=== PATIENT | female | born 1985 | race Caucasian/White ===

== ENCOUNTER 2016-07-05 21:35 | Emergency (ER) | payer SELFPAY ==
[~2016-07-05 21:35] MED LIST: IBUP600T26 PO; OMEP40CA2 PO; ULTR50TA PO
[2016-07-05] MEDS ORDERED: CLINDAMYCIN 150 MG CAP As Ordered ONE (22:45)
[2016-07-05] MEDS ORDERED: OXYCODONE/APAP 5MG/325MG(BULK) 1 TAB TAB As Ordered ONE (22:46)
--- NOTE | 2016-07-05 22:55 | EDDOCDS ---
Physician Documentation [facility] Name: Liseth Metz Age: 30 yrs Sex: Female : 1985 Arrival Date: 07/05/2016 Time: 21:35 Bed TR7 Private MD: NO PRIMARY PHYSICIAN, . Disposition: 07/05/16 22:44 Discharged to Home/Self Care. Impression: Dental caries - Tooth Pain/Abscess/Fracture. - Condition is Stable. - Discharge Instructions: Dental Abscess, Dental Fracture, Dental Pain, [id number]. - Prescriptions for Clindamycin HCl 300 mg Oral Capsule - take 1 capsule by ORAL route every 6 hours; 40 capsule. Percocet 5- 325 mg Oral Tablet - take 1 tablet by ORAL route every 6 hours As needed MDD: 4 tabs; 20 tablet. Ibuprofen 800 mg Oral Tablet - take 1 tablet by ORAL route every 8 hours As needed take with food; 30 tablet. - Medication Reconciliation, Local Pharmacy Hours form. - Follow up: Dentist Your; When: 1 - 2 days; Reason: Further diagnostic work-up, Recheck today's complaints, Continuance of care. Follow up: Emergency Department; Reason: Worsening of conditions. - Problem is new. - Symptoms have improved. Historical: - Allergies: no known allergies; - Home Meds: 1. ibuprofen 600 mg Oral tab 1 tab 4 times per day (Last dose: 07/05/2016 14:00) 2. Tylenol 325 mg Oral tab 2 tabs every 6 hours (Last dose: 07/05/2016 19:30) 3. omeprazole 20 mg Oral cpDR 1 cap once daily (Last dose: 07/05/2016 08:00) - PMHx: acid reflux; - PSHx: none; - Social history: Smoking status: Patient states was never smoker of tobacco. Patient/guardian denies using alcohol, street drugs, No barriers to communication noted, The patient speaks fluent Amharic, Speaks appropriately for age. - Family history: Not pertinent. - : The pt / caregiver states he / she is not on anticoagulants. Home medication list is obtained from the patient. - Exposure Risk Screening:: None identified. 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 7 in. (170.18 cm) (R); Pain 6/10; 21:38 Body Mass Index 39.16 (113.40 kg, 170.18 cm) gr2 MDM: 22:43 Clindamycin 300 mg PO once ordered. ef1 22:43 oxyCODONE-acetaminophen 4 pack 5 mg-325 mg 1 packets PO once; Dispense with pt, take as ef1 per instruction on package ordered. 22:54 [facility] Payment Agreement was scanned into [employer] and attached to record. joy 22:54 Financial registration complete. joy Administered Medications: 22:53 Drug: oxyCODONE-acetaminophen 4 pack 1 packets [oxycodone-acetaminophen 5 mg-325 mg ck1 tablet (1 tabs)] {Co-Signature: asha (Saul Delcid RN).} Route: PO; 22:54 Drug: Clindamycin 300 mg [clindamycin 150 mg capsule (2 caps)] Route: PO; ck1 Signatures: Gabriela Schneider RN RN ck1 Nicolasa Quintana, PA-C PA-C ef1 Any Toro RN RN ttb Beck, Gabriela gjb Joshua Becker RN jmb The chart was reviewed and I authenticate all verbal orders and agree with the evaluation and treatment provided.Attachments: 22:54 [facility] Payment Agreement joy MTDD
--- NOTE | 2016-07-05 22:55 | EDDOCDS ---
Nurse's Notes [facility] Name: Liseth Metz Age: 30 yrs Sex: Female : 1985 Arrival Date: 07/05/2016 Time: 21:35 Bed TR7 Private MD: NO PRIMARY PHYSICIAN, . Diagnosis: Dental caries-Tooth Pain/Abscess/Fracture Presentation: 07/05 21:45 Presenting complaint: Patient states: toothache x2 days. Left upper molar. Mild facial ttb swelling noted. Adult Sepsis Screening: The patient does not have new or worsening altered mentation. Patient's respiratory rate is less than 22. Systolic blood pressure is greater than 100. Patient has a qSOFA score of 0- Negative Sepsis Screen. Suicide/Homicide risk assessment- the patient denies having any suicidal and/or homicidal ideations and does not present with any other emotional, behavioral or mental health complaints. 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 Transition of care: patient was not received from another setting of care. 21:45 Acuity: RACHELLE Level 5 ttb 21:45 Method Of Arrival: Walkin/Carried/Asstd ttb Triage Assessment: 21:47 General: Appears in no apparent distress, well nourished, well groomed, Behavior is ttb appropriate for age, cooperative, pleasant, quiet. Pain: Location: left molar 7/10. HIV screening NA for this visit Offered previously. Neurological: Level of Consciousness is awake, alert. EENT: Reports pain since 2 days ago. EENT: Denies difficulty swallowing. Cardiovascular: Chest pain is denied. Respiratory: No deficits noted. Airway is patent Denies cough, shortness of breath. GI: Denies nausea, vomiting. Derm: Skin is normal. 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 ibuprofen 600 mg Oral tab 1 tab 4 times per day (Last dose: 07/05/2016 14:00) 2. Tylenol 325 mg Oral tab 2 tabs every 6 hours (Last dose: 07/05/2016 19:30) 3. omeprazole 20 mg Oral cpDR 1 cap once daily (Last dose: 07/05/2016 08:00) - PMHx: acid reflux; - PSHx: none; - Social history: Smoking status: Patient states was never smoker of tobacco. Patient/guardian denies using alcohol, street drugs, No barriers to communication noted, The patient speaks fluent Tongan, Speaks appropriately for age. - Family history: Not pertinent. - : The pt / caregiver states he / she is not on anticoagulants. Home medication list is obtained from the patient. - Exposure Risk Screening:: None identified. Screenin:54 Screening information is obtained from the patient. Fall risk: No risks identified. ck1 Assistance ADL's: requires no assistance with activities of daily living. Abuse/DV Screen: The patient / caregiver reports he/she is: not in a situation that causes fear, pain or injury. Nutritional screening: No deficits noted. Advance Directives: Currently, there is no health care proxy. home support is adequate. Assessment: 22:55 General: Appears in no apparent distress, comfortable, Behavior is appropriate for age, ck1 cooperative. Pain: Location: mouth Pain currently is 8 out of 10 on a pain scale. Neurological: No deficits noted. EENT: Oral mucosa is moist. Poor dentition noted. Derm: Skin is intact, is healthy with good turgor, Skin is pink, warm & dry. Vital Signs: 21:38 BP 154 / 93; Pulse 91; Resp 18 S; Temp 97.7(O); Pulse Ox 98% on R/A; Weight 113.4 kg gr2 (R); Height 5 ft. 7 in. (170.18 cm) (R); Pain 6/10; 21:38 Body Mass Index 39.16 (113.40 kg, 170.18 cm) gr2 Vitals: 21:38 Log In Time: July 05, 2016 at 21:38. gr2 ED Course: 21:37 Patient visited by Mine Pressley. gr2 21:37 Patient moved to Waiting gr2 21:38 NO PRIMARY PHYSICIAN, . is Private Physician. gr2 21:39 Patient visited by Mine Pressley. gr2 21:39 Patient moved to Pre RCE gr2 21:46 Triage Initiated ttb 21:48 Patient visited by Any Troo RN. ttb 22:28 Patient moved to Triage 3 jmb 22:29 Nicolasa Quintana PA-C is PHCP. ef1 22:29 Ismael Juárez DO is Attending Physician. ef1 22:32 Patient visited by Nicolasa Quintana PA-C. ef1 22:44 Your, Dentist is Referral Physician. ef1 22:53 Patient moved to [address] 22:54 [facility] Payment Agreement was scanned into [employer] and attached to record. [facility] 22:54 The patient / caregiver is instructed regarding the plan of care and ED course. ck1 22:54 No IV's were initiated during this patient's visit. No procedures done that require ck1 assistance. Administered Medications: 22:53 Drug: oxyCODONE-acetaminophen 4 pack 1 packets [oxycodone-acetaminophen 5 mg-325 mg ck1 tablet (1 tabs)] {Co-Signature: asha (Saul Delcid RN).} Route: PO; 22:54 Drug: Clindamycin 300 mg [clindamycin 150 mg capsule (2 caps)] Route: PO; ck1 Order Results: There are currently no results for this order. Outcome: 22:44 Discharge ordered by Provider. ef1 22:54 Discharge Assessment: Patient awake, alert and oriented x 3. No cognitive and/or ck1 functional deficits noted. Patient verbalized understanding of disposition instructions. patient administered narcotics - yes. Pt provided with safe discharge. The following High Risk Discharge criteria are identified: None. Discharged to home ambulatory. Condition: stable. Discharge instructions given to patient, Instructed on discharge instructions, follow up and referral plans. medication usage, Demonstrated understanding of instructions, medications, Pt was receptive of discharge instructions/ teaching. Prescriptions given X 3. No special radiology studies were completed. Property :Personal belongings accompany Pt. 22:55 Patient left the ED. ck1 Signatures: Gabriela Schneider,RN RN ck1 Nicolasa Quintana PA-C PA-C ef1 Any Toro RN RN deborab Mine Pressley 2 Saul Delcid RN RN jmb Beck, Gabriela gjb Joshua Becker RN jmb MTDD
--- NOTE | 2016-07-07 23:56 | EDDOCDS ---
Nurse's Notes [facility] Name: Liseth Metz Age: 30 yrs Sex: Female : 1985 Arrival Date: 07/05/2016 Time: 21:35 Bed TR7 Private MD: NO PRIMARY PHYSICIAN, . Diagnosis: Dental caries-Tooth Pain/Abscess/Fracture Presentation: 07/05 21:45 Presenting complaint: Patient states: toothache x2 days. Left upper molar. Mild facial ttb swelling noted. Adult Sepsis Screening: The patient does not have new or worsening altered mentation. Patient's respiratory rate is less than 22. Systolic blood pressure is greater than 100. Patient has a qSOFA score of 0- Negative Sepsis Screen. Suicide/Homicide risk assessment- the patient denies having any suicidal and/or homicidal ideations and does not present with any other emotional, behavioral or mental health complaints. 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 Transition of care: patient was not received from another setting of care. 21:45 Acuity: RACHELLE Level 5 ttb 21:45 Method Of Arrival: Walkin/Carried/Asstd ttb Triage Assessment: 21:47 General: Appears in no apparent distress, well nourished, well groomed, Behavior is ttb appropriate for age, cooperative, pleasant, quiet. Pain: Location: left molar 7/10. HIV screening NA for this visit Offered previously. Neurological: Level of Consciousness is awake, alert. EENT: Reports pain since 2 days ago. EENT: Denies difficulty swallowing. Cardiovascular: Chest pain is denied. Respiratory: No deficits noted. Airway is patent Denies cough, shortness of breath. GI: Denies nausea, vomiting. Derm: Skin is normal. 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 ibuprofen 600 mg Oral tab 1 tab 4 times per day (Last dose: 07/05/2016 14:00) 2. Tylenol 325 mg Oral tab 2 tabs every 6 hours (Last dose: 07/05/2016 19:30) 3. omeprazole 20 mg Oral cpDR 1 cap once daily (Last dose: 07/05/2016 08:00) - PMHx: acid reflux; - PSHx: none; - Social history: Smoking status: Patient states was never smoker of tobacco. Patient/guardian denies using alcohol, street drugs, No barriers to communication noted, The patient speaks fluent Turkish, Speaks appropriately for age. - Family history: Not pertinent. - : The pt / caregiver states he / she is not on anticoagulants. Home medication list is obtained from the patient. - Exposure Risk Screening:: None identified. Screenin:54 Screening information is obtained from the patient. Fall risk: No risks identified. ck1 Assistance ADL's: requires no assistance with activities of daily living. Abuse/DV Screen: The patient / caregiver reports he/she is: not in a situation that causes fear, pain or injury. Nutritional screening: No deficits noted. Advance Directives: Currently, there is no health care proxy. home support is adequate. Assessment: 22:55 General: Appears in no apparent distress, comfortable, Behavior is appropriate for age, ck1 cooperative. Pain: Location: mouth Pain currently is 8 out of 10 on a pain scale. Neurological: No deficits noted. EENT: Oral mucosa is moist. Poor dentition noted. Derm: Skin is intact, is healthy with good turgor, Skin is pink, warm & dry. Vital Signs: 21:38 BP 154 / 93; Pulse 91; Resp 18 S; Temp 97.7(O); Pulse Ox 98% on R/A; Weight 113.4 kg gr2 (R); Height 5 ft. 7 in. (170.18 cm) (R); Pain 6/10; 21:38 Body Mass Index 39.16 (113.40 kg, 170.18 cm) gr2 Vitals: 21:38 Log In Time: July 05, 2016 at 21:38. gr2 ED Course: 21:37 Patient visited by Mine Pressley. gr2 21:37 Patient moved to Waiting gr2 21:38 NO PRIMARY PHYSICIAN, . is Private Physician. gr2 21:39 Patient visited by Mine Pressley. gr2 21:39 Patient moved to Pre RCE gr2 21:46 Triage Initiated ttb 21:48 Patient visited by Any Toro RN. ttb 22:28 Patient moved to Triage 3 jmb 22:29 Nicolasa Quintana PA-C is PHCP. ef1 22:29 Ismael Juárez DO is Attending Physician. ef1 22:32 Patient visited by Nicolasa Quintana PA-C. ef1 22:44 Your, Dentist is Referral Physician. ef1 22:53 Patient moved to [address] 22:54 [facility] Payment Agreement was scanned into [employer] and attached to record. [facility] 22:54 The patient / caregiver is instructed regarding the plan of care and ED course. ck1 22:54 No IV's were initiated during this patient's visit. No procedures done that require ck1 assistance. 07/06 08:08 T-Sheet-- Draft Copy was scanned into [employer] and attached to record. gb Administered Medications: 07/05 22:53 Drug: oxyCODONE-acetaminophen 4 pack 1 packets [oxycodone-acetaminophen 5 mg-325 mg ck1 tablet (1 tabs)] {Co-Signature: asha (Saul Delcid RN).} Route: PO; 22:54 Drug: Clindamycin 300 mg [clindamycin 150 mg capsule (2 caps)] Route: PO; ck1 Order Results: There are currently no results for this order. Outcome: 22:44 Discharge ordered by Provider. ef1 22:54 Discharge Assessment: Patient awake, alert and oriented x 3. No cognitive and/or ck1 functional deficits noted. Patient verbalized understanding of disposition instructions. patient administered narcotics - yes. Pt provided with safe discharge. The following High Risk Discharge criteria are identified: None. Discharged to home ambulatory. Condition: stable. Discharge instructions given to patient, Instructed on discharge instructions, follow up and referral plans. medication usage, Demonstrated understanding of instructions, medications, Pt was receptive of discharge instructions/ teaching. Prescriptions given X 3. No special radiology studies were completed. Property :Personal belongings accompany Pt. 22:55 Patient left the ED. ck1 Signatures: Shona Mike, Reg Reg Gabriela PhilipRN REUBEN ck1 Nicolasa Quintana PA-C PA-C ef1 Any Toro RN RN ttb Raymond, Gainslee 2 Saul Delcid RN RN jmb Beck, Gabriela gjb Joshua Becker RN jmb Chart Complete MTDD
--- NOTE | 2016-07-07 23:56 | EDDOCDS ---
Physician Documentation [facility] Name: Liseth Metz Age: 30 yrs Sex: Female : 1985 Arrival Date: 07/05/2016 Time: 21:35 Bed TR7 Private MD: NO PRIMARY PHYSICIAN, . Disposition: 07/05/16 22:44 Discharged to Home/Self Care. Impression: Dental caries - Tooth Pain/Abscess/Fracture. - Condition is Stable. - Discharge Instructions: Dental Abscess, Dental Fracture, Dental Pain, [id number]. - Prescriptions for Clindamycin HCl 300 mg Oral Capsule - take 1 capsule by ORAL route every 6 hours; 40 capsule. Percocet 5- 325 mg Oral Tablet - take 1 tablet by ORAL route every 6 hours As needed MDD: 4 tabs; 20 tablet. Ibuprofen 800 mg Oral Tablet - take 1 tablet by ORAL route every 8 hours As needed take with food; 30 tablet. - Medication Reconciliation, Local Pharmacy Hours form. - Follow up: Dentist Your; When: 1 - 2 days; Reason: Further diagnostic work-up, Recheck today's complaints, Continuance of care. Follow up: Emergency Department; Reason: Worsening of conditions. - Problem is new. - Symptoms have improved. Historical: - Allergies: no known allergies; - Home Meds: 1. ibuprofen 600 mg Oral tab 1 tab 4 times per day (Last dose: 07/05/2016 14:00) 2. Tylenol 325 mg Oral tab 2 tabs every 6 hours (Last dose: 07/05/2016 19:30) 3. omeprazole 20 mg Oral cpDR 1 cap once daily (Last dose: 07/05/2016 08:00) - PMHx: acid reflux; - PSHx: none; - Social history: Smoking status: Patient states was never smoker of tobacco. Patient/guardian denies using alcohol, street drugs, No barriers to communication noted, The patient speaks fluent Citizen Of [place], Speaks appropriately for age. - Family history: Not pertinent. - : The pt / caregiver states he / she is not on anticoagulants. Home medication list is obtained from the patient. - Exposure Risk Screening:: None identified. 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 7 in. (170.18 cm) (R); Pain 6/10; 21:38 Body Mass Index 39.16 (113.40 kg, 170.18 cm) gr2 MDM: 22:43 Clindamycin 300 mg PO once ordered. ef1 22:43 oxyCODONE-acetaminophen 4 pack 5 mg-325 mg 1 packets PO once; Dispense with pt, take as ef1 per instruction on package ordered. 22:54 [facility] Payment Agreement was scanned into [employer] and attached to record. [facility] :54 Financial registration complete. [facility] 07/06 08:08 T-Sheet-- Draft Copy was scanned into [employer] and attached to record. gb Administered Medications: 07/05 22:53 Drug: oxyCODONE-acetaminophen 4 pack 1 packets [oxycodone-acetaminophen 5 mg-325 mg ck1 tablet (1 tabs)] {Co-Signature: asha (Saul Delcid RN).} Route: PO; :54 Drug: Clindamycin 300 mg [clindamycin 150 mg capsule (2 caps)] Route: PO; ck1 Signatures: Shona Mike, Reg Reg gb Gabriela Schneider RN RN ck1 Nicolasa Quintana, PA-C PA-C ef1 Any Toro RN RN ttb Soniya Delgadob Saul barry The chart was reviewed and I authenticate all verbal orders and agree with the evaluation and treatment provided.Attachments: :54 [facility] Payment Agreement [facility] 07/06 08:08 T-Sheet-- Draft Copy gb Chart Complete MTDD
--- NOTE | 2016-07-07 23:56 | EDDOCDS ---
Physician Documentation [facility] Name: Liseth Metz Age: 30 yrs Sex: Female : 1985 Arrival Date: 07/05/2016 Time: 21:35 Bed TR7 Private MD: NO PRIMARY PHYSICIAN, . Disposition: 07/05/16 22:44 Discharged to Home/Self Care. Impression: Dental caries - Tooth Pain/Abscess/Fracture. - Condition is Stable. - Discharge Instructions: Dental Abscess, Dental Fracture, Dental Pain, [id number]. - Prescriptions for Clindamycin HCl 300 mg Oral Capsule - take 1 capsule by ORAL route every 6 hours; 40 capsule. Percocet 5- 325 mg Oral Tablet - take 1 tablet by ORAL route every 6 hours As needed MDD: 4 tabs; 20 tablet. Ibuprofen 800 mg Oral Tablet - take 1 tablet by ORAL route every 8 hours As needed take with food; 30 tablet. - Medication Reconciliation, Local Pharmacy Hours form. - Follow up: Dentist Your; When: 1 - 2 days; Reason: Further diagnostic work-up, Recheck today's complaints, Continuance of care. Follow up: Emergency Department; Reason: Worsening of conditions. - Problem is new. - Symptoms have improved. Historical: - Allergies: no known allergies; - Home Meds: 1. ibuprofen 600 mg Oral tab 1 tab 4 times per day (Last dose: 07/05/2016 14:00) 2. Tylenol 325 mg Oral tab 2 tabs every 6 hours (Last dose: 07/05/2016 19:30) 3. omeprazole 20 mg Oral cpDR 1 cap once daily (Last dose: 07/05/2016 08:00) - PMHx: acid reflux; - PSHx: none; - Social history: Smoking status: Patient states was never smoker of tobacco. Patient/guardian denies using alcohol, street drugs, No barriers to communication noted, The patient speaks fluent Marshallese, Speaks appropriately for age. - Family history: Not pertinent. - : The pt / caregiver states he / she is not on anticoagulants. Home medication list is obtained from the patient. - Exposure Risk Screening:: None identified. 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 7 in. (170.18 cm) (R); Pain 6/10; 21:38 Body Mass Index 39.16 (113.40 kg, 170.18 cm) gr2 MDM: 22:43 Clindamycin 300 mg PO once ordered. ef1 22:43 oxyCODONE-acetaminophen 4 pack 5 mg-325 mg 1 packets PO once; Dispense with pt, take as ef1 per instruction on package ordered. 22:54 [facility] Payment Agreement was scanned into [employer] and attached to record. [facility] :54 Financial registration complete. [facility] 07/06 08:08 T-Sheet-- Draft Copy was scanned into [employer] and attached to record. gb Administered Medications: 07/05 22:53 Drug: oxyCODONE-acetaminophen 4 pack 1 packets [oxycodone-acetaminophen 5 mg-325 mg ck1 tablet (1 tabs)] {Co-Signature: asha (Saul Delcid RN).} Route: PO; :54 Drug: Clindamycin 300 mg [clindamycin 150 mg capsule (2 caps)] Route: PO; ck1 Signatures: Shona Mike, Reg Reg gb Gabriela Schneider RN RN ck1 Nicolasa Quintana, PA-C PA-C ef1 Any Toro RN RN ttb Soniya Delgadob Saul barry The chart was reviewed and I authenticate all verbal orders and agree with the evaluation and treatment provided.Attachments: :54 [facility] Payment Agreement [facility] 07/06 08:08 T-Sheet-- Draft Copy gb Chart Complete MTDD
== END 2016-07-05 22:55 | disposition home or self-care (01) ==
LOC: M ED 21:35
DX: K04.7 Periapical abscess without sinus (principal); K02.9 Dental caries, unspecified; S02.5XXA Fracture of tooth (traumatic), initial encounter for closed fracture; X58.XXXA Exposure to other specified factors, initial encounter; Y92.89 Other specified places as the place of occurrence of the external cause; Y93.89 Activity, other specified; Y99.8 Other external cause status; G50.1 Atypical facial pain; K08.9 Disorder of teeth and supporting structures, unspecified; K21.9 Gastro-esophageal reflux disease without esophagitis; Z79.1 Long term (current) use of non-steroidal anti-inflammatories (NSAID); Z79.899 Other long term (current) drug therapy

== ENCOUNTER 2016-08-11 15:41 | Emergency (ER) | payer SELFPAY ==
[2016-08-11] MEDS ORDERED: AUGMENTIN 875 MG TAB As Ordered ONE (16:09)
--- NOTE | 2016-08-11 16:17 | EDDOCDS ---
Nurse's Notes [facility] Name: Liseth Metz Age: 30 yrs Sex: Female : 1985 Arrival Date: 08/11/2016 Time: 15:41 Bed TR8 Private MD: NO PRIMARY PHYSICIAN, . Diagnosis: Acute serous otitis media, right ear;Acute upper respiratory infection, unspecified Presentation: 08/11 15:44 Presenting complaint: Patient states: Cold symptoms for the past 4-5 days right ear mlb1 pain since last night with drainage this am, also reports tooth pain left jaw. Adult Sepsis Screening: The patient does not have new or worsening altered mentation. Patient's respiratory rate is less than 22. Systolic blood pressure is greater than 100. Patient has a qSOFA score of 0- Negative Sepsis Screen. Suicide/Homicide risk assessment- the patient denies having any suicidal and/or homicidal ideations and does not present with any other emotional, behavioral or mental health complaints. 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 Transition of care: patient was not received from another setting of care. 15:44 Acuity: RACHELLE Level 4 mlb1 15:44 Method Of Arrival: Walkin/Carried/Asstd mlb1 Triage Assessment: 15:46 General: Appears in no apparent distress, Behavior is appropriate for age, cooperative. mlb1 Pain: Location: right ear Pain currently is 6 out of 10 on a pain scale. HIV screening NA for this visit Offered previously. 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 ibuprofen 800 mg oral tab 4 times per day as needed (Last dose: 08/11/2016 11:30) 2. Tylenol 500 mg Oral tab 2 tabs every 4-6 hours as needed (Last dose: 08/11/2016 11:30) 3. omeprazole 20 mg Oral cpDR 1 cap once daily - PMHx: acid reflux; - PSHx: none; - Social history: Smoking status: Patient states was never smoker of tobacco. No barriers to communication noted, The patient speaks fluent Macedonian, Speaks appropriately for age. - Family history: Not pertinent. - : The pt / caregiver states he / she is not on anticoagulants. Home medication list is obtained from family members. - Exposure Risk Screening:: None identified. Screenin:15 Screening information is obtained from the patient. Fall risk: No risks identified. rs3 Assistance ADL's: requires no assistance with activities of daily living. Abuse/DV Screen: The patient / caregiver reports he/she is: not in a situation that causes fear, pain or injury. Nutritional screening: No deficits noted. Advance Directives: Currently, there is no health care proxy. There is no active DNR order. home support is adequate. Vital Signs: 15:43 BP 156 / 86; Pulse 89; Resp 18; Temp 97.5(O); Pulse Ox 97% on R/A; Weight 113.4 kg; dem1 Height 5 ft. 7 in. (170.18 cm); Pain 6/10; 15:43 Body Mass Index 39.16 (113.40 kg, 170.18 cm) [facility] Vitals: 15:43 Log In Time: August 11, 2016 at 15:40. [facility] ED Course: 15:43 Patient visited by Nima Noriega. dem1 15:43 NO PRIMARY PHYSICIAN, . is Private Physician. dem1 15:43 Patient moved to Waiting dem1 15:43 Patient moved to Pre RCE dem1 15:44 Patient visited by Sudheer Davis, RN. mlb1 15:45 Triage Initiated mlb1 15:47 Patient visited by Sudheer Davis, RN. mlb1 15:54 Patient moved to Triage 3 ck1 15:59 Sudheer Torres PA is PHCP. mo1 15:59 Cailin Dodson MD is Attending Physician. mo1 16:02 Patient visited by Sudheer Torres PA. mo1 16:06 [facility] is Referral Physician. mo1 16:14 Patient moved to TR8 rs3 16:15 No IV's were initiated during this patient's visit. No procedures done that require rs3 assistance. 16:16 The patient / caregiver is instructed regarding the plan of care and ED course. rs3 Administered Medications: 16:14 Drug: Amoxicillin-Clavulanate 1 tabs [amoxicillin 875 mg-potassium clavulanate 125 mg rs3 tablet (1 tabs)] Route: PO; Order Results: There are currently no results for this order. Outcome: 16:06 Discharge ordered by Provider. mo1 16:15 Discharge Assessment: patient administered narcotics - no. The following High Risk rs3 Discharge criteria are identified: None. Discharged to home with family. Condition: stable. Discharge instructions given to patient, Instructed on discharge instructions, follow up and referral plans. medication usage. No special radiology studies were completed. Property :Personal belongings accompany Pt. 16:16 Patient left the ED. rs3 Signatures: Sudheer Davis RN RN mlb1 Gabriela Schneider RN RN ck1 Eneida Dyer RN RN rs3 Nima Noriega1 Sudheer Torres PA PA mo1 MTDD
--- NOTE | 2016-08-11 16:17 | EDDOCDS ---
Physician Documentation [facility] Name: Liseth Metz Age: 30 yrs Sex: Female : 1985 Arrival Date: 08/11/2016 Time: 15:41 Bed TR8 Private MD: NO PRIMARY PHYSICIAN, . Disposition: 08/11/16 16:06 Discharged to Home/Self Care. Impression: Acute serous otitis media, right ear, Acute upper respiratory infection, unspecified. - Condition is Stable. - Discharge Instructions: Otitis Media, Adult, Upper Respiratory Infection, Adult. - Prescriptions for Augmentin 875- 125 mg Oral Tablet - take 1 tablet by ORAL route every 12 hours for 10 days; 20 tablet. Ibuprofen 800 mg Oral Tablet - take 1 tablet by ORAL route every 8 hours As needed take with food; 30 tablet. - Medication Reconciliation, Local Pharmacy Hours form. - Follow up: Private Physician; When: Call to arrange an appointment; Reason: Recheck today's complaints, Continuance of care. [facility]: [facility]; When: Call to arrange an appointment; Reason: Recheck today's complaints, Continuance of care. - Problem is new. - Symptoms are unchanged. Historical: - Allergies: no known allergies; - Home Meds: 1. ibuprofen 800 mg oral tab 4 times per day as needed (Last dose: 08/11/2016 11:30) 2. Tylenol 500 mg Oral tab 2 tabs every 4-6 hours as needed (Last dose: 08/11/2016 11:30) 3. omeprazole 20 mg Oral cpDR 1 cap once daily - PMHx: acid reflux; - PSHx: none; - Social history: Smoking status: Patient states was never smoker of tobacco. No barriers to communication noted, The patient speaks fluent Korean, Speaks appropriately for age. - Family history: Not pertinent. - : The pt / caregiver states he / she is not on anticoagulants. Home medication list is obtained from family members. - Exposure Risk Screening:: None identified. 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 7 in. (170.18 cm); Pain 6/10; 15:43 Body Mass Index 39.16 (113.40 kg, 170.18 cm) dem1 MDM: 16:05 Amoxicillin-Clavulanate 875 mg 1 tabs PO once ordered. mo1 16:16 Financial registration complete. zo Administered Medications: 16:14 Drug: Amoxicillin-Clavulanate 1 tabs [amoxicillin 875 mg-potassium clavulanate 125 mg rs3 tablet (1 tabs)] Route: PO; Signatures: Sudheer Davis RN RN mlb1 Blaise Mccray Rosemary, RN RN rs3 Sudheer Torres PA PA mo1 MTDD
--- NOTE | 2016-08-13 17:17 | EDDOCDS ---
Physician Documentation [facility] Name: Liseth Metz Age: 30 yrs Sex: Female : 1985 Arrival Date: 08/11/2016 Time: 15:41 Bed TR8 Private MD: NO PRIMARY PHYSICIAN, . Disposition: 08/11/16 16:06 Discharged to Home/Self Care. Impression: Acute serous otitis media, right ear, Acute upper respiratory infection, unspecified. - Condition is Stable. - Discharge Instructions: Otitis Media, Adult, Upper Respiratory Infection, Adult. - Prescriptions for Augmentin 875- 125 mg Oral Tablet - take 1 tablet by ORAL route every 12 hours for 10 days; 20 tablet. Ibuprofen 800 mg Oral Tablet - take 1 tablet by ORAL route every 8 hours As needed take with food; 30 tablet. - Medication Reconciliation, Local Pharmacy Hours form. - Follow up: Private Physician; When: Call to arrange an appointment; Reason: Recheck today's complaints, Continuance of care. Follow [facility]: [facility]; When: Call to arrange an appointment; Reason: Recheck today's complaints, Continuance of care. - Problem is new. - Symptoms are unchanged. Historical: - Allergies: no known allergies; - Home Meds: 1. ibuprofen 800 mg oral tab 4 times per day as needed (Last dose: 08/11/2016 11:30) 2. Tylenol 500 mg Oral tab 2 tabs every 4-6 hours as needed (Last dose: 08/11/2016 11:30) 3. omeprazole 20 mg Oral cpDR 1 cap once daily - PMHx: acid reflux; - PSHx: none; - Social history: Smoking status: Patient states was never smoker of tobacco. No barriers to communication noted, The patient speaks fluent Albanian, Speaks appropriately for age. - Family history: Not pertinent. - : The pt / caregiver states he / she is not on anticoagulants. Home medication list is obtained from family members. - Exposure Risk Screening:: None identified. 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 7 in. (170.18 cm); Pain 6/10; 15:43 Body Mass Index 39.16 (113.40 kg, 170.18 cm) dem1 MDM: 16:05 Amoxicillin-Clavulanate 875 mg 1 tabs PO once ordered. mo1 16:16 Financial registration complete. zo 16:21 [facility] Payment Agreement was scanned into [employer] and attached to record. zo 22:02 T-Sheet-- Draft Copy was scanned into [employer] and attached to record. klr Administered Medications: 16:14 Drug: Amoxicillin-Clavulanate 1 tabs [amoxicillin 875 mg-potassium clavulanate 125 mg rs3 tablet (1 tabs)] Route: PO; Signatures: Sudheer Davis RN RN mlb1 Blaise Mccray Rosemary, RN RN rs3 Sudheer Torres PA PA mo1 Karin Hsieh klr The chart was reviewed and I authenticate all verbal orders and agree with the evaluation and treatment provided.Attachments: 16:21 [facility] Payment Agreement zo 22:02 T-Sheet-- Draft Copy klr Chart Complete MTDD
--- NOTE | 2016-08-13 17:17 | EDDOCDS ---
Nurse's Notes [facility] Name: Liseth Metz Age: 30 yrs Sex: Female : 1985 Arrival Date: 08/11/2016 Time: 15:41 Bed TR8 Private MD: NO PRIMARY PHYSICIAN, . Diagnosis: Acute serous otitis media, right ear;Acute upper respiratory infection, unspecified Presentation: 08/11 15:44 Presenting complaint: Patient states: Cold symptoms for the past 4-5 days right ear mlb1 pain since last night with drainage this am, also reports tooth pain left jaw. Adult Sepsis Screening: The patient does not have new or worsening altered mentation. Patient's respiratory rate is less than 22. Systolic blood pressure is greater than 100. Patient has a qSOFA score of 0- Negative Sepsis Screen. Suicide/Homicide risk assessment- the patient denies having any suicidal and/or homicidal ideations and does not present with any other emotional, behavioral or mental health complaints. Status: Patient is not a social services counselor or dependent. Transition of care: patient was not received from another setting of care. 15:44 Acuity: RACHELLE Level 4 mlb1 15:44 Method Of Arrival: Walkin/Carried/Asstd mlb1 Triage Assessment: 15:46 General: Appears in no apparent distress, Behavior is appropriate for age, cooperative. mlb1 Pain: Location: right ear Pain currently is 6 out of 10 on a pain scale. HIV screening NA for this visit Offered previously. 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 ibuprofen 800 mg oral tab 4 times per day as needed (Last dose: 08/11/2016 11:30) 2. Tylenol 500 mg Oral tab 2 tabs every 4-6 hours as needed (Last dose: 08/11/2016 11:30) 3. omeprazole 20 mg Oral cpDR 1 cap once daily - PMHx: acid reflux; - PSHx: none; - Social history: Smoking status: Patient states was never smoker of tobacco. No barriers to communication noted, The patient speaks fluent Bolivian, Speaks appropriately for age. - Family history: Not pertinent. - : The pt / caregiver states he / she is not on anticoagulants. Home medication list is obtained from family members. - Exposure Risk Screening:: None identified. Screenin:15 Screening information is obtained from the patient. Fall risk: No risks identified. rs3 Assistance ADL's: requires no assistance with activities of daily living. Abuse/DV Screen: The patient / caregiver reports he/she is: not in a situation that causes fear, pain or injury. Nutritional screening: No deficits noted. Advance Directives: Currently, there is no health care proxy. There is no active DNR order. home support is adequate. Vital Signs: 15:43 BP 156 / 86; Pulse 89; Resp 18; Temp 97.5(O); Pulse Ox 97% on R/A; Weight 113.4 kg; dem1 Height 5 ft. 7 in. (170.18 cm); Pain 6/10; 15:43 Body Mass Index 39.16 (113.40 kg, 170.18 cm) [facility] Vitals: 15:43 Log In Time: August 11, 2016 at 15:40. [facility] ED Course: 15:43 Patient visited by Nima Noriega. dem1 15:43 NO PRIMARY PHYSICIAN, . is Private Physician. dem1 15:43 Patient moved to Waiting dem1 15:43 Patient moved to Pre RCE dem1 15:44 Patient visited by Sudheer Davis, RN. mlb1 15:45 Triage Initiated mlb1 15:47 Patient visited by Sudheer Davis, RN. mlb1 15:54 Patient moved to Triage 3 ck1 15:59 Sudheer Torres PA is PHCP. mo1 15:59 Cailin Dodson MD is Attending Physician. mo1 16:02 Patient visited by Sudheer Torres PA. mo1 16:06 [facility] is Referral Physician. mo1 16:14 Patient moved to TR8 rs3 16:15 No IV's were initiated during this patient's visit. No procedures done that require rs3 assistance. 16:16 The patient / caregiver is instructed regarding the plan of care and ED course. rs3 16:21 [facility] Payment Agreement was scanned into [employer] and attached to record. zo 22:02 T-Sheet-- Draft Copy was scanned into [employer] and attached to record. klr Administered Medications: 16:14 Drug: Amoxicillin-Clavulanate 1 tabs [amoxicillin 875 mg-potassium clavulanate 125 mg rs3 tablet (1 tabs)] Route: PO; Order Results: There are currently no results for this order. Outcome: 16:06 Discharge ordered by Provider. mo1 16:15 Discharge Assessment: patient administered narcotics - no. The following High Risk rs3 Discharge criteria are identified: None. Discharged to home with family. Condition: stable. Discharge instructions given to patient, Instructed on discharge instructions, follow up and referral plans. medication usage. No special radiology studies were completed. Property :Personal belongings accompany Pt. 16:16 Patient left the ED. rs3 Signatures: Sudheer Davis RN RN mlb1 Gabriela Schneider RN RN ck1 Blaise Mccray RosemaryRN RN rs3 Nima Noriega Michael, PA PA mo1 Karin Hsieh Chart Complete MTDRaulito
--- NOTE | 2016-08-13 17:17 | EDDOCDS ---
Physician Documentation [facility] Name: Liseth Metz Age: 30 yrs Sex: Female : 1985 Arrival Date: 08/11/2016 Time: 15:41 Bed TR8 Private MD: NO PRIMARY PHYSICIAN, . Disposition: 08/11/16 16:06 Discharged to Home/Self Care. Impression: Acute serous otitis media, right ear, Acute upper respiratory infection, unspecified. - Condition is Stable. - Discharge Instructions: Otitis Media, Adult, Upper Respiratory Infection, Adult. - Prescriptions for Augmentin 875- 125 mg Oral Tablet - take 1 tablet by ORAL route every 12 hours for 10 days; 20 tablet. Ibuprofen 800 mg Oral Tablet - take 1 tablet by ORAL route every 8 hours As needed take with food; 30 tablet. - Medication Reconciliation, Local Pharmacy Hours form. - Follow up: Private Physician; When: Call to arrange an appointment; Reason: Recheck today's complaints, Continuance of care. Follow [facility]; When: Call to arrange an appointment; Reason: Recheck today's complaints, Continuance of care. - Problem is new. - Symptoms are unchanged. Historical: - Allergies: no known allergies; - Home Meds: 1. ibuprofen 800 mg oral tab 4 times per day as needed (Last dose: 08/11/2016 11:30) 2. Tylenol 500 mg Oral tab 2 tabs every 4-6 hours as needed (Last dose: 08/11/2016 11:30) 3. omeprazole 20 mg Oral cpDR 1 cap once daily - PMHx: acid reflux; - PSHx: none; - Social history: Smoking status: Patient states was never smoker of tobacco. No barriers to communication noted, The patient speaks fluent Italian, Speaks appropriately for age. - Family history: Not pertinent. - : The pt / caregiver states he / she is not on anticoagulants. Home medication list is obtained from family members. - Exposure Risk Screening:: None identified. 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 7 in. (170.18 cm); Pain 6/10; 15:43 Body Mass Index 39.16 (113.40 kg, 170.18 cm) dem1 MDM: 16:05 Amoxicillin-Clavulanate 875 mg 1 tabs PO once ordered. mo1 16:16 Financial registration complete. zo 16:21 [facility] Payment Agreement was scanned into [employer] and attached to record. zo 22:02 T-Sheet-- Draft Copy was scanned into [employer] and attached to record. klr Administered Medications: 16:14 Drug: Amoxicillin-Clavulanate 1 tabs [amoxicillin 875 mg-potassium clavulanate 125 mg rs3 tablet (1 tabs)] Route: PO; Signatures: Sudheer Davis RN RN mlb1 Blaise Mccray Rosemary, RN RN rs3 Sudheer Torres PA PA mo1 Karin Hsieh klr The chart was reviewed and I authenticate all verbal orders and agree with the evaluation and treatment provided.Attachments: 16:21 [facility] Payment Agreement zo 22:02 T-Sheet-- Draft Copy klr Chart Complete MTDD
== END 2016-08-11 16:16 | disposition home or self-care (01) ==
LOC: M ED 15:41
DX: J06.9 Acute upper respiratory infection, unspecified (principal); H66.005 Acute suppurative otitis media without spontaneous rupture of ear drum, recurrent, left ear; K21.9 Gastro-esophageal reflux disease without esophagitis; Z79.899 Other long term (current) drug therapy

== ENCOUNTER → 2017-01-12 | Outpatient (CLI) | payer OTHER, SELFPAY ==
[~2017-01-12] MED LIST changes: +IBUP-1022 PO; -IBUP600T26 PO; -ULTR50TA PO; +ULTR50TA8 PO
[2017-01-12 17:27] LABS: BASO % 0.6 % (0.0-1.0); EOS # 0.1 K/mm3 (0.0-0.50); EOS % 1.8 % (0.0-3.0); LARGE UNSTAINED CELL # 0.1 K/mm3 (0.0-0.4); LARGE UNSTAINED CELL % 1.7 % (0.0-4.0); LYMPH % 25.6 % (24.0-44.0); MEAN CORPUSCULAR HEMOGLOBIN 31.7 pg (27.0-33.0); MEAN CORPUSCULAR VOLUME 88.1 fl (80.0-96.0); MONO # 0.4 K/mm3 (0.0-0.8); MONO % 4.4 % (0.0-5.0); NEUTROPHILS # 5.2 K/mm3 (1.8-7.7); NEUTROPHILS % 65.8 % (36.0-66.0); PLATELET COUNT, AUTOMATED 272 k/mm3 (150-450); RED CELL DISTRIBUTION WIDTH 14.3 % (11.5-14.5)
[2017-01-12 19:08] LABS: CONTROL LINE HCG INT CTR LINE PRESENT
[2017-01-12 19:36] LABS: ALKALINE PHOSPHATASE 113 U/L (45-117); AST/SGOT 31 U/L (15-37); BILIRUBIN,TOTAL 0.3 MG/DL (0.2-1.0); BLOOD UREA NITROGEN 15 MG/DL (7-18); CALCIUM LEVEL 8.7 MG/DL (8.5-10.1); CARBON DIOXIDE LEVEL 27 MEQ/L (21-32); CHLORIDE LEVEL 103 MEQ/L (98-107); CREATININE FOR GFR 0.75 MG/DL (0.55-1.02); GLUCOSE, FASTING 143 MG/DL (70-105); SODIUM LEVEL 139 MEQ/L (136-145)
[2017-01-12 19:58] LABS: ALT/SGPT 48 U/L (12-78)
[2017-01-12 21:29] LABS: ANION GAP 9 MEQ/L (8-16)
[2017-01-12 21:30] LABS: ALBUMIN 3.9 GM/DL (3.2-5.2); ALBUMIN/GLOBULIN RATIO 0.95 (1.00-1.93)
[2017-01-14 10:13] LABS: CONTROL LINE MONO RF C INT CTR LINE PRESENT
[2017-01-16 00:08] LABS: Lyme Disease IgG/IgM Antibodie <0.91 ISR (0.00-0.90); Lyme Disease IgM Ab Quantitati <0.80 index (0.00-0.79)
== END ==
LOC: M ADAMS 13:39
PROVIDERS: ATTEND Physician Assistant Medical
DX: R53.83 Other fatigue (principal); M79.1 Myalgia; R42 Dizziness and giddiness

== ENCOUNTER → 2017-01-31 | Outpatient (REF) | payer OTHER, MEDICAID ==
[2017-01-31 14:17] LABS: BASO % 0.5 % (0.0-1.0); EOS # 0.2 K/mm3 (0.0-0.50); LARGE UNSTAINED CELL # 0.2 K/mm3 (0.0-0.4); LARGE UNSTAINED CELL % 1.6 % (0.0-4.0); LYMPH # 2.2 K/mm3 (1.5-4.5); LYMPH % 24.5 % (24.0-44.0); MEAN CORPUSCULAR HEMOGLOBIN 30.9 pg (27.0-33.0); MEAN CORPUSCULAR HGB CONC 35.2 g/dl (32.0-36.5); MEAN CORPUSCULAR VOLUME 87.6 fl (80.0-96.0); MONO # 0.3 K/mm3 (0.0-0.8); MONO % 3.7 % (0.0-5.0); NEUTROPHILS # 6.2 K/mm3 (1.8-7.7); NEUTROPHILS % 67.6 % (36.0-66.0); PLATELET COUNT, AUTOMATED 254 k/mm3 (150-450); RED CELL DISTRIBUTION WIDTH 14.6 % (11.5-14.5); WHITE BLOOD COUNT 9.1 K/mm3 (4.0-10.0)
[2017-01-31 14:21] LABS: ALBUMIN/GLOBULIN RATIO 0.93 (1.00-1.93); ALKALINE PHOSPHATASE 102 U/L (45-117); ALT/SGPT 36 U/L (12-78); ANION GAP 9 MEQ/L (8-16); AST/SGOT 20 U/L (15-37); BILIRUBIN,TOTAL 0.6 MG/DL (0.2-1.0); BLOOD UREA NITROGEN 19 MG/DL (7-18); CALCIUM LEVEL 9.1 MG/DL (8.5-10.1); CARBON DIOXIDE LEVEL 27 MEQ/L (21-32); CHLORIDE LEVEL 101 MEQ/L (98-107); CHOLESTEROL LEVEL 145 MG/DL (<200); FREE T4 1.15 NG/DL (0.76-1.46); GLOMERULAR FILTRATION RATE > 60.0 (>60); GLUCOSE, FASTING 90 MG/DL (70-105); MAGNESIUM LEVEL 2.1 MG/DL (1.8-2.4); POTASSIUM SERUM 3.9 MEQ/L (3.5-5.1); SODIUM LEVEL 137 MEQ/L (136-145); TOTAL PROTEIN 8.3 GM/DL (6.4-8.2); TRIGLYCERIDES LEVEL 336 MG/DL (<150)
[2017-01-31 14:51] LABS: ERYTHROCYTE SEDIMENTATION RATE 36 mm/hr (0-20)
== END ==
LOC: M SFHCPLAZ 10:05
PROVIDERS: ATTEND Nurse Practitioner Family
DX: Z00.00 Encounter for general adult medical examination without abnormal findings (principal); R73.01 Impaired fasting glucose; L83 Acanthosis nigricans; N91.2 Amenorrhea, unspecified; K21.9 Gastro-esophageal reflux disease without esophagitis; Z13.220 Encounter for screening for lipoid disorders; M25.50 Pain in unspecified joint; R00.2 Palpitations

== ENCOUNTER → 2017-04-02 | Outpatient (REF) | payer OTHER, MEDICAID | LOC: M SFHCWAGY 10:18 | PROVIDERS: ATTEND Nurse Practitioner Family | DX: Z12.4 Encounter for screening for malignant neoplasm of cervix (principal) ==

== ENCOUNTER → 2017-04-04 | Outpatient (REF) | payer OTHER, MEDICAID ==
[2017-04-04 13:35] LABS: FOLLICLE STIMULATING HORMONE 5.8 mIU/mL; LUTEINIZING HORMONE 5.4 mIU/mL; PROLACTIN 16.9 NG/ML
[2017-04-10 14:24] LABS: 17 HYDROXY PROGESTERONE 58 ng/dL (.)
== END ==
LOC: M SFHCWAGY 08:38
PROVIDERS: ATTEND Nurse Practitioner Family
DX: Z12.4 Encounter for screening for malignant neoplasm of cervix (principal); N92.6 Irregular menstruation, unspecified

== ENCOUNTER → 2017-12-13 | Outpatient (CLI) | payer OTHER | LOC: M RAD 06:56 | DX: K76.9 Liver disease, unspecified (principal); R19.7 Diarrhea, unspecified | CPT/HCPCS: 76705 ==

== ENCOUNTER 2017-12-23 08:25 | Day surgery (SDC) | payer OTHER ==
[2017-12-23] MEDS: NS 1,000 ML IV (09:04)
[2017-12-23] MEDS ORDERED: PROPOFOL 200 MG/20 ML VIAL As Ordered ×4 (09:46→10:03)
[2017-12-23] MEDS ORDERED: LIDOCAINE 2% INJ 100 MG/5 ML SDV (FOR ANES.) As Ordered (09:46)
== END 2017-12-23 10:47 | disposition home or self-care (01) ==
LOC: M OPP 08:25
DX: K62.5 Hemorrhage of anus and rectum (principal); R19.7 Diarrhea, unspecified; D12.7 Benign neoplasm of rectosigmoid junction; K64.8 Other hemorrhoids; K82.9 Disease of gallbladder, unspecified; K21.9 Gastro-esophageal reflux disease without esophagitis; F41.9 Anxiety disorder, unspecified; F32.9 Major depressive disorder, single episode, unspecified; R51 Headache; Z79.899 Other long term (current) drug therapy; Z80.3 Family history of malignant neoplasm of breast
CPT/HCPCS: 45380

== ENCOUNTER → 2017-12-26 | Outpatient (CLI) | payer OTHER | LOC: M RAD 11:08 | DX: R10.31 Right lower quadrant pain (principal); R31.9 Hematuria, unspecified | CPT/HCPCS: 74176 ==

== ENCOUNTER → 2018-04-11 | Outpatient (REF) | payer OTHER ==
[2018-04-11 13:46] LABS: ALBUMIN 3.8 GM/DL (3.2-5.2); ALKALINE PHOSPHATASE 93 U/L (45-117); ALT/SGPT 36 U/L (12-78); ANION GAP 8 MEQ/L (8-16); AST/SGOT 23 U/L (7-37); BILIRUBIN,TOTAL 0.3 MG/DL (0.2-1.0); BLOOD UREA NITROGEN 14 MG/DL (7-18); CALCIUM LEVEL 8.8 MG/DL (8.5-10.1); CARBON DIOXIDE LEVEL 27 MEQ/L (21-32); CHLORIDE LEVEL 104 MEQ/L (98-107); CHOLESTEROL LEVEL 147 MG/DL (<200); CHOLESTEROL RISK RATIO 4.741 (<5); CREATININE FOR GFR 0.48 MG/DL (0.55-1.30); FREE T4 1.02 NG/DL (0.76-1.46); GLOMERULAR FILTRATION RATE > 60.0 (>60); GLUCOSE, FASTING 95 MG/DL (70-100); HDL CHOLESTEROL 31 MG/DL (>40); LDL CHOLESTEROL 43 MG/DL (<100); NON-HDL-C 116 MG/DL; POTASSIUM SERUM 4.1 MEQ/L (3.5-5.1); SODIUM LEVEL 139 MEQ/L (136-145); TOTAL PROTEIN 7.6 GM/DL (6.4-8.2); TRIGLYCERIDES LEVEL 365 MG/DL (<150)
[2018-04-11 13:52] LABS: TOTAL 25(OH) VITAMIN D 14.4 NG/ML (30.0-100.0)
== END ==
LOC: M SFHCPLAZ 11:19
DX: F32.9 Major depressive disorder, single episode, unspecified (principal); Z68.37 Body mass index [BMI] 37.0-37.9, adult; Z13.220 Encounter for screening for lipoid disorders
CPT/HCPCS: 84443

== ENCOUNTER 2018-08-31 15:41 | Emergency (ER) | payer OTHER, SELFPAY ==
[~2018-08-31] VITALS: Ht 170.2 cm; Wt 113.6 kg
[~2018-08-31 15:41] MED LIST changes: +SERT50TA PO
[2018-08-31 16:14] LABS: BASO # 0.1 10^3/uL (0.0-0.2); BASO % 0.5 % (0.0-1.0); EOS # 0.3 10^3/uL (0.0-0.50); EOS % 2.7 % (0.0-3.0); HEMATOCRIT 36.6 % (36.0-47.0); HEMOGLOBIN 12.4 g/dl (12.0-15.5); LYMPH # 2.5 10^3/uL (1.5-4.5); LYMPH % 25.4 % (24.0-44.0); MEAN CORPUSCULAR HEMOGLOBIN 28.1 pg (27.0-33.0); MEAN CORPUSCULAR HGB CONC 33.9 g/dl (32.0-36.5); MONO # 0.5 10^3/uL (0.0-0.8); MONO % 5.3 % (0.0-5.0); NEUTROPHILS # 6.5 10^3/uL (1.8-7.7); NEUTROPHILS % 65.7 % (36.0-66.0); PLATELET COUNT, AUTOMATED 268 10^3/uL (150-450); RED BLOOD COUNT 4.41 10^6/uL (4.00-5.40); WHITE BLOOD COUNT 9.9 10^3/uL (4.0-10.0)
[2018-08-31] MEDS ORDERED: NS 1,000 ML IV ONE (16:45)
[2018-08-31 16:51] LABS: ALBUMIN 4.1 GM/DL (3.2-5.2); ALT/SGPT 53 U/L (12-78); BILIRUBIN,DIRECT < 0.1 MG/DL (0.0-0.2); BILIRUBIN,TOTAL 0.3 MG/DL (0.2-1.0); BLOOD UREA NITROGEN 19 MG/DL (7-18); CALCIUM LEVEL 8.4 MG/DL (8.5-10.1); CARBON DIOXIDE LEVEL 26 MEQ/L (21-32); CHLORIDE LEVEL 104 MEQ/L (98-107); CREATININE FOR GFR 0.62 MG/DL (0.55-1.30); GLOMERULAR FILTRATION RATE > 60.0 (>60); GLUCOSE, FASTING 130 MG/DL (70-100); LIPASE 182 U/L (73-393); POTASSIUM SERUM 3.8 MEQ/L (3.5-5.1); SODIUM LEVEL 138 MEQ/L (136-145); TOTAL PROTEIN 8.3 GM/DL (6.4-8.2)
[2018-08-31] MEDS ORDERED: SIMETHICONE 80 MG CHEW TAB PO ONE (18:15)
--- NOTE | 2018-08-31 18:41 | REPVR ---
EXAM: US Abdomen Limited, Right Upper Quadrant EXAM DATE/TIME: 08/31/2018 6:00 PM CLINICAL HISTORY: 32 years old, female; Pain; Abdominal pain; Localized; Right upper quadrant (ruq); Additional info: Right flank pain, HX gallbladder disease TECHNIQUE: Real-time ultrasound of the abdomen with image documentation. Examination was focused on the right upper quadrant. COMPARISON: GALLBLADDER US 10/16/2015 11:03 AM FINDINGS: Liver: There is moderate to severe fatty infiltration of the liver. Gallbladder: No evidence of gallstones. The gallbladder wall is less than 2 mm. negative Lomax's sign Common bile duct: Normal common bile duct measuring 3 mm. Pancreas: Normal sized pancreas. Right kidney: The right kidney measures 12 CM in length and there is no evidence of hydronephrosis. Limited examination. The patient was not fasting. IMPRESSION: 1. No evidence of gallstones. 2. Severe fatty infiltration of the liver. 3. Normal-sized common bile duct. Electronically signed by: Remberto Loza On 08/31/2018 18:40:47 PM
[2018-08-31 19:23] VITALS: BP 169/89
--- NOTE | 2018-09-01 06:36 | ED PDOC ---
Post-Departure Follow-Up [facility] faxed formal report of michell us for fu Cailin Fernandez MD Sep 01, 2018 06:36
== END 2018-08-31 19:25 | disposition home or self-care (01) ==
LOC: M ED 15:41
DX: R10.9 Unspecified abdominal pain (principal); K76.0 Fatty (change of) liver, not elsewhere classified; K21.9 Gastro-esophageal reflux disease without esophagitis; F33.9 Major depressive disorder, recurrent, unspecified; Z79.899 Other long term (current) drug therapy

== ENCOUNTER → 2020-08-24 | Outpatient (REF) | payer OTHER ==
[~2020-08-24] MED LIST changes: -OMEP40CA2 PO; +OMEP40CA97 PO; +SERT-141 PO; -SERT50TA PO
[2020-08-24 18:26] LABS: HEMATOCRIT 41.1 % (36.0-47.0); HEMOGLOBIN 13.8 g/dl (12.0-15.5); MEAN CORPUSCULAR HEMOGLOBIN 28.5 pg (27.0-33.0); MEAN CORPUSCULAR HGB CONC 33.6 g/dl (32.0-36.5); MEAN CORPUSCULAR VOLUME 84.7 fl (80.0-96.0); PLATELET COUNT, AUTOMATED 249 10^3/uL (150-450); RED BLOOD COUNT 4.85 10^6/uL (4.00-5.40); WHITE BLOOD COUNT 8.3 10^3/uL (4.0-10.0)
[2020-08-24 18:50] LABS: ALBUMIN 3.7 GM/DL (3.2-5.2); ALT/SGPT 79 U/L (12-78); BILIRUBIN,TOTAL 0.5 MG/DL (0.2-1.0); BLOOD UREA NITROGEN 11 MG/DL (7-18); CALCIUM LEVEL 9.1 MG/DL (8.5-10.1); CARBON DIOXIDE LEVEL 31 MEQ/L (21-32); CHLORIDE LEVEL 100 MEQ/L (98-107); CHOLESTEROL LEVEL 168 MG/DL (<200); CHOLESTEROL RISK RATIO 5.793 (<5); CREATININE FOR GFR 0.52 MG/DL (0.55-1.30); FREE T4 1.14 NG/DL (0.76-1.46); GLOMERULAR FILTRATION RATE > 60.0 (>60); GLUCOSE, FASTING 145 MG/DL (70-100); HDL CHOLESTEROL 29 MG/DL (>40); NON-HDL-C 139 MG/DL; POTASSIUM SERUM 4.6 MEQ/L (3.5-5.1); SODIUM LEVEL 136 MEQ/L (136-145); THYROID STIMULATING HORMONE 0.494 uIU/ML (0.358-3.740); TOTAL PROTEIN 8.1 GM/DL (6.4-8.2); TRIGLYCERIDES LEVEL 515 MG/DL (<150)
[2020-08-24 18:51] LABS: TOTAL 25(OH) VITAMIN D 7.3 NG/ML (30.0-100.0)
[2020-08-24 20:49] LABS: HEMOGLOBIN A1c 7.5 %
== END ==
LOC: M SFHCPLAZ 13:29
PROVIDERS: ATTEND Physician Assistant
DX: Z00.00 Encounter for general adult medical examination without abnormal findings (principal); K21.9 Gastro-esophageal reflux disease without esophagitis; I11.9 Hypertensive heart disease without heart failure; N91.2 Amenorrhea, unspecified; L83 Acanthosis nigricans; E66.9 Obesity, unspecified; Z68.37 Body mass index [BMI] 37.0-37.9, adult

== ENCOUNTER → 2020-11-11 | Outpatient (CLI) | payer OTHER ==
--- NOTE | 2020-11-11 16:29 | REP ---
INDICATION: KAREN SCR MAMMO/Z12.31. COMPARISON: None TECHNIQUE: Digital screening mammography was carried out bilaterally in the CC and MLO projections in both 2D and 3D modalities. Today's examination is initial screening examination. By history, the patient has no complaints of a palpable breast abnormality or other significant breast complaints. FINDINGS: The breasts are symmetric in size and shape. I have been given information which is in the [employer] power jacket that the patient has longstanding bilateral inverted nipples. There are no masses. There is no internal architectural distortion. There are no suspicious calcifications. The MLO views show nipple inversion rather than nipple retraction as per history. There is no skin thickening. The Volpara volumetric breast density pattern is b. IMPRESSION: BIRADS/ACR category 2 negative mammogram. This patient's Tyrer-Cuzick lifetime breast cancer risk assessment score is 36.8 %. Due to the high T-C score bilateral baseline breast MRI is warranted This mammogram was interpreted with the aid of an FDA-approved computer-aided detection system. The patient states she had a clinical breast exam in September 2020. The patient letter being requested is M1. RECOMMENDATION: Repeat screening mammography recommended 1 year (for women over 40). Consider bilateral baseline breast MRI as described above. <Electronically signed by Gustavo Leonard > 11/11/20 [id number]
--- NOTE | 2020-11-13 07:19 | REP ---
INDICATION: AUB COMPARISON: None. TECHNIQUE: Transabdominal pelvic ultrasound followed by transvaginal examination for better evaluation of the endometrium and adnexa with color Doppler evaluation of the ovaries. FINDINGS: Bladder is unremarkable and measures 4.2 x 5.7 x 5.7 cm. Normal anteverted uterus measures 9.4 x 4.2 x 4.3 cm. The endometrial complex is thickened to 17 mm but without obvious focal abnormality. Nabothian cysts are identified in the cervical region. Bilateral ovaries are normal in appearance and vascularity without evidence for torsion. Right ovary measures 4.2 x 2.8 x 2.7 cm with 1.9 cm dominant follicle; R I = 0.63. Left ovary measures 3.9 x 2.3 x 2.4 cm; R I = 0.57. No pelvic fluid or adnexal mass lesion IMPRESSION: Presumed hyperplastic changes to the endometrium without discrete focal uterine/endometrial abnormality identified. <Electronically signed by Aiden Do > 11/13/20 0715
== END ==
LOC: M WHC 14:17
PROVIDERS: ATTEND Obstetrics & Gynecology
DX: N93.9 Abnormal uterine and vaginal bleeding, unspecified (principal); Z12.31 Encounter for screening mammogram for malignant neoplasm of breast

== ENCOUNTER → 2020-12-09 | Outpatient (REF) | payer OTHER | LOC: M SFHCWAGY 19:21 | PROVIDERS: ATTEND Obstetrics & Gynecology | DX: N93.9 Abnormal uterine and vaginal bleeding, unspecified (principal) ==

== ENCOUNTER → 2021-01-26 | Outpatient (CLI) | payer OTHER ==
[~2021-01-26] MED LIST changes: +OMEP40CA4 PO; -OMEP40CA97 PO
[2021-01-26 18:06] LABS: BLOOD UREA NITROGEN 16 MG/DL (7-18); CALCIUM LEVEL 8.6 MG/DL (8.5-10.1); CARBON DIOXIDE LEVEL 28 MEQ/L (21-32); CHLORIDE LEVEL 105 MEQ/L (98-107); CREATININE FOR GFR 0.54 MG/DL (0.55-1.30); GLOMERULAR FILTRATION RATE > 60.0 (>60); GLUCOSE, FASTING 83 MG/DL (70-100); SODIUM LEVEL 138 MEQ/L (136-145)
[2021-01-26 19:41] LABS: HEMOGLOBIN A1c 5.4 %
== END ==
LOC: M PLALAB 13:03
PROVIDERS: ATTEND Physician Assistant
DX: E11.9 Type 2 diabetes mellitus without complications (principal)

== ENCOUNTER 2021-05-30 12:19 | Observation (INO) | payer OTHER ==
[~2021-05-30] VITALS: Ht 170.2 cm; Wt 96.3 kg
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
--- OUTSIDE RECORDS SUMMARY | 2021-05-30 12:24 | CCD ---
Author Author [facility] Organization [facility] Address Unknown Phone Unavailable Support Name Relationship Address Phone TACO Next Of Kin [id number] [place] [address] [address] Next Of Kin [address] [place] [address] [place] [address] Unavailable LEOBARDO MALDONADO Next Of Kin [address] [place] [address] GONZÁLEZ FINNEGAN Next Of Kin [address] [place] [address] GONZÁLEZ FINNEGAN [facility] [address] [place] [address] Unavailable Re-disclosure Warning The records that you are about to access may contain information from federally-assisted alcohol or drug abuse programs. If such information is present, then the following federally mandated warning applies: This information has been disclosed to you from records protected by federal confidentiality rules (42 CFR part 2). The federal rules prohibit you from making any further disclosure of this information unless further disclosure is expressly permitted by the written consent of the person to whom it pertains or as otherwise permitted by 42 CFR part 2. A general authorization for the release of medical or other information is NOT sufficient for this purpose. The Federal rules restrict any use of the information to criminally investigate or prosecute any alcohol or drug abuse patient.The records that you are about to access may contain highly sensitive health information, the redisclosure of which is protected by Article 27-F of the [place] State Public Health law. If you continue you may have access to information: Regarding HIV / AIDS; Provided by facilities licensed or operated by the [facility] Office of Mental Health; or Provided by the [facility] Office for People With Developmental Disabilities. If such information is present, then the following [facility] mandated warning applies: This information has been disclosed to you from confidential records which are protected by state law. State law prohibits you from making any further disclosure of this information without the specific written consent of the person to whom it pertains, or as otherwise permitted by law. Any unauthorized further disclosure in violation of state law may result in a fine or retirement sentence or both. A general authorization for the release of medical or other information is NOT sufficient authorization for further disc losure. Family History Family Member Name Family Member Gender Family Member Status Date o f Status Description Data Source(s) Unknown Unknown Problem [facility] ([facility] mother's brother Unknown Unknown Problem [facility] ([facility] mother-dx 16yrs ago maternal grandmother Encounters Encounter Providers Location Date Indications Data Source(s ) Unknown [address] [facility] [id number] 05/29/2021 12:00:00 AM EST [facility] Unknown [address] [facility] [id number] 04/24/2021 12:00:00 AM EDT [facility] Unknown [address] [facility] [id number] 02/24/2021 12:00:00 AM EDT [facility]CW[facility] Unknown [address] [facility] [id number] 01/31/2021 12:00:00 AM EDT [facility]CW1 [facility] Unknown [address] [facility] [id number] 01/26/2021 12:00:00 AM EDT eCW1 [facility]) Outpatient [address] [facility] [id number] 01/24/2021 12:00:00 AM EDT eCW1 [facility]) ([facility]) [facility] Procedure [address] [place] [address] 12/09/2020 12:00:00 AM EDT eCW1 ([facility]) Unknown [address] [facility] [id number] 11/18/2020 12:00:00 AM EDT eCW1 ([facility]) Out[place] [address] [facility] [address] 10/26/2020 12:00:00 AM EDT eCW1 ([facility]) [place] [address] [facility] [address] 10/05/2020 12:00:00 AM EDT eCW1 ([facility]) [place] [address] [facility] [address] 09/28/2020 12:00:00 AM EDT eCW1 ([facility]) [place] [address] [facility] [address] 09/27/2020 12:00:00 AM EDT eCW1 ([facility]) Unknown [address] [facility] [address] 09/05/2020 12:00:00 AM EST eCW1 ([facility]) Out[place] [address] [facility] [address] 08/23/2020 12:00:00 AM EST eCW1 ([facility]) Unknown [address] [facility] [address] 07/08/2020 12:00:00 AM EST eCW1 ([facility]) Medications Medication Brand Name Start Date Product Form Dose Route Admi nistrative Instructions Pharmacy Instructions Status Indications Reaction Description Data Source(s) Ozempic (0.25 or 0.5 MG/DOSE) 2 MG/1.5ML Ozempic (0.25 or 0.5 MG/DOSE) 2 MG/1.5ML 01/24/2021 12:00:00 AM EDT active Ozempic (0.25 or 0.5 MG/DOSE) 2 MG/1.5ML eCW1 ([facility]) Ozempic (0.25 or 0.5 MG/DOSE) 2 MG/1.5ML Ozempic (0.25 or 0.5 MG/DOSE) 2 MG/1.5ML 01/24/2021 12:00:00 AM EDT active Ozempic (0.25 or 0.5 MG/DOSE) 2 MG/1.5ML eCW1 ([facility]) Ozempic (0.25 or 0.5 MG/DOSE) 2 MG/1.5ML Ozempic (0.25 or 0.5 MG/DOSE) 2 MG/1.5ML 01/24/2021 12:00:00 AM EDT active Ozempic (0.25 or 0.5 MG/DOSE) 2 MG/1.5ML eCW1 ([facility]) Ozempic (0.25 or 0.5 MG/DOSE) 2 MG/1.5ML Ozempic (0.25 or 0.5 MG/DOSE) 2 MG/1.5ML 01/24/2021 12:00:00 AM EDT active Ozempic (0.25 or 0.5 MG/DOSE) 2 MG/1.5ML eCW1 ([facility]) Ozempic (0.25 or 0.5 MG/DOSE) 2 MG/1.5ML Ozempic (0.25 or 0.5 MG/DOSE) 2 MG/1.5ML 01/24/2021 12:00:00 AM EDT active eCW1 ([facility]) Ozempic (0.25 or 0.5 MG/DOSE) 2 MG/1.5ML Ozempic (0.25 or 0.5 MG/DOSE) 2 MG/1.5ML 01/24/2021 12:00:00 AM EDT active Ozempic (0.25 or 0.5 MG/DOSE) 2 MG/1.5ML eCW1 ([facility]) medroxyprogesterone acetate 10 MG Oral Tablet [Provera ] Provera 10 MG Provera 10 MG 10/26/2020 12:00:00 AM EDT 1.0 {tablet_with_food} suspended eCW1 ([facility]) medroxyprogesterone acetate 10 MG Oral Tablet [Provera ] Provera 10 MG Provera 10 MG 10/26/2020 12:00:00 AM EDT 1.0 {tablet_with_food} active eCW1 ([facility]) medroxyprogesterone acetate 10 MG Oral Tablet [Provera ] Provera 10 MG Provera 10 MG 10/26/2020 12:00:00 AM EDT 1.0 {tablet_with_food} suspended Provera 10 MG eCW1 ([facility]) medroxyprogesterone acetate 10 MG Oral Tablet [Provera ] Provera 10 MG Provera 10 MG 10/26/2020 12:00:00 AM EDT 1.0 {tablet_with_food} suspended Provera 10 MG eCW1 ([facility]) medroxyprogesterone acetate 10 MG Oral Tablet [Provera ] Provera 10 MG Provera 10 MG 10/26/2020 12:00:00 AM EDT 1.0 {tablet_with_food} suspended Provera 10 MG eCW1 ([facility]) medroxyprogesterone acetate 10 MG Oral Tablet [Provera ] Provera 10 MG Provera 10 MG 10/26/2020 12:00:00 AM EDT 1.0 {tablet_with_food} suspended Provera 10 MG eCW1 ([facility]) medroxyprogesterone acetate 10 MG Oral Tablet [Provera ] Provera 10 MG Provera 10 MG 10/26/2020 12:00:00 AM EDT 1.0 {tablet_with_food} suspended Provera 10 MG eCW1 ([facility]) medroxyprogesterone acetate 10 MG Oral Tablet [Provera ] Provera 10 MG Provera 10 MG 10/26/2020 12:00:00 AM EDT 1.0 {tablet_with_food} suspended Provera 10 MG eCW1 ([facility]) medroxyprogesterone acetate 10 MG Oral Tablet [Provera ] Provera 10 MG Provera 10 MG 10/26/2020 12:00:00 AM EDT 1.0 {tablet_with_food} active Provera 10 MG eCW1 ([facility]) pioglitazone 15 MG Oral Tablet Pioglitazone HCl 15 MG Piogli tazone HCl 15 MG 10/07/2020 12:00:00 AM EDT 1.0 {tablet} active Pioglitazone HCl 15 MG eCW1 ([facility]) pioglitazone 15 MG Oral Tablet Pioglitazone HCl 15 MG Piogli tazone HCl 15 MG 10/07/2020 12:00:00 AM EDT 1.0 {tablet} suspende d Pioglitazone HCl 15 MG eCW1 ([facility]) pioglitazone 15 MG Oral Tablet Pioglitazone HCl 15 MG Piogli tazone HCl 15 MG 10/07/2020 12:00:00 AM EDT 1.0 {tablet} suspende d Pioglitazone HCl 15 MG eCW1 ([facility]) pioglitazone 15 MG Oral Tablet Pioglitazone HCl 15 MG Piogli tazone HCl 15 MG 10/07/2020 12:00:00 AM EDT 1.0 {tablet} suspende d Pioglitazone HCl 15 MG eCW1 ([facility]) pioglitazone 15 MG Oral Tablet Pioglitazone HCl 15 MG Piogli tazone HCl 15 MG 10/07/2020 12:00:00 AM EDT 1.0 {tablet} active Pioglitazone HCl 15 MG eCW1 ([facility]) pioglitazone 15 MG Oral Tablet Pioglitazone HCl 15 MG Piogli tazone HCl 15 MG 10/07/2020 12:00:00 AM EDT 1.0 {tablet} suspended eCW1 ([facility]) pioglitazone 15 MG Oral Tablet Pioglitazone HCl 15 MG Piogli tazone HCl 15 MG 10/07/2020 12:00:00 AM EDT 1.0 {tablet} suspende d Pioglitazone HCl 15 MG eCW1 ([facility]) pioglitazone 15 MG Oral Tablet Pioglitazone HCl 15 MG Piogli tazone HCl 15 MG 10/07/2020 12:00:00 AM EDT 1.0 {tablet} suspende d Pioglitazone HCl 15 MG eCW1 ([facility]) pioglitazone 15 MG Oral Tablet Pioglitazone HCl 15 MG Piogli tazone HCl 15 MG 10/07/2020 12:00:00 AM EDT 1.0 {tablet} suspended eCW1 ([facility]) pioglitazone 15 MG Oral Tablet Pioglitazone HCl 15 MG Piogli tazone HCl 15 MG 10/07/2020 12:00:00 AM EDT 1.0 {tablet} suspende d Pioglitazone HCl 15 MG eCW1 ([facility]) pioglitazone 15 MG Oral Tablet Pioglitazone HCl 15 MG Piogli tazone HCl 15 MG 10/07/2020 12:00:00 AM EDT 1.0 {tablet} suspende d Pioglitazone HCl 15 MG eCW1 ([facility]) sitagliptin 25 MG Oral Tablet [Januvia] Januvia 25 MG Januvi a 25 MG 10/04/2020 12:00:00 AM EDT suspended Januv ia 25 MG eCW1 ([facility]) sitagliptin 25 MG Oral Tablet [Januvia] Januvia 25 MG Januvi a 25 MG 10/04/2020 12:00:00 AM EDT suspended Januv ia 25 MG eCW1 ([facility]) sitagliptin 25 MG Oral Tablet [Januvia] Januvia 25 MG Januvi a 25 MG 10/04/2020 12:00:00 AM EDT suspended Januv ia 25 MG eCW1 ([facility]) sitagliptin 25 MG Oral Tablet [Januvia] Januvia 25 MG Januvi a 25 MG 10/04/2020 12:00:00 AM EDT suspended eCW1 ([facility]) sitagliptin 25 MG Oral Tablet [Januvia] Januvia 25 MG Januvi a 25 MG 10/04/2020 12:00:00 AM EDT active Januvia 25 MG eCW1 ([facility]) sitagliptin 25 MG Oral Tablet [Januvia] Januvia 25 MG Januvi a 25 MG 10/04/2020 12:00:00 AM EDT active Januvia 25 MG eCW1 ([facility]) sitagliptin 25 MG Oral Tablet [Januvia] Januvia 25 MG Januvi a 25 MG 10/04/2020 12:00:00 AM EDT suspended Januv ia 25 MG eCW1 ([facility]) sitagliptin 25 MG Oral Tablet [Januvia] Januvia 25 MG Januvi a 25 MG 10/04/2020 12:00:00 AM EDT suspended Januv ia 25 MG eCW1 ([facility]) sitagliptin 25 MG Oral Tablet [Januvia] Januvia 25 MG Januvi a 25 MG 10/04/2020 12:00:00 AM EDT suspended Januv ia 25 MG eCW1 ([facility]) sitagliptin 25 MG Oral Tablet [Januvia] Januvia 25 MG Januvi a 25 MG 10/04/2020 12:00:00 AM EDT suspended eCW1 ([facility]) sitagliptin 25 MG Oral Tablet [Januvia] Januvia 25 MG Januvi a 25 MG 10/04/2020 12:00:00 AM EDT suspended Januv ia 25 MG eCW1 ([facility]) sitagliptin 25 MG Oral Tablet [Januvia] Januvia 25 MG Januvi a 25 MG 10/04/2020 12:00:00 AM EDT active Januvia 25 MG eCW1 ([facility]) Glucometer UNK 09/27/2020 12:00:00 AM EDT suspend ed Glucometer eCW1 ([facility]) Glucometer UNK 09/27/2020 12:00:00 AM EDT active Glucometer eCW1 ([facility]) Glucometer UNK 09/27/2020 12:00:00 AM EDT suspend ed Glucometer eCW1 ([facility]) Test Strips - UNK 09/27/2020 12:00:00 AM EDT acti ve Test Strips - eCW1 ([facility]) Ergocalciferol 70498 UNT Oral Capsule Ergocalciferol 1 .25 MG (26695 UT) Ergocalciferol 1.25 MG (30352 UT) 09/27/2020 12:00:00 AM EDT 1.0 {c apsule} active Ergocalciferol 1.25 MG (5 0000 UT) eCW1 ([facility]) Lancets - Lancets - 09/27/2020 12:00:00 AM EDT suspended Lancets - eCW1 ([facility]) Lancets - Lancets - 09/27/2020 12:00:00 AM EDT eleno pended eCW1 ([facility]) Ergocalciferol 30028 UNT Oral Capsule Ergocalciferol 1 .25 MG (72308 UT) Ergocalciferol 1.25 MG (80814 UT) 09/27/2020 12:00:00 AM EDT 1.0 {c apsule} suspended eCW1 ([facility]) Glucometer UNK 09/27/2020 12:00:00 AM EDT suspend ed eCW1 ([facility]) Lancets - Lancets - 09/27/2020 12:00:00 AM EDT suspended Lancets - eCW1 ([facility]) Glucometer UNK 09/27/2020 12:00:00 AM EDT suspend ed Glucometer eCW1 ([facility]) Lancets - Lancets - 09/27/2020 12:00:00 AM EDT suspended Lancets - eCW1 ([facility]) Ergocalciferol 03920 UNT Oral Capsule Ergocalciferol 1 .25 MG (43067 UT) Ergocalciferol 1.25 MG (28305 UT) 09/27/2020 12:00:00 AM EDT 1.0 {c apsule} active Ergocalciferol 1.25 MG (5 0000 UT) eCW1 ([facility]) Lancets - Lancets - 09/27/2020 12:00:00 AM EDT act kary Lancets - eCW1 ([facility]) Test Strips - UNK 09/27/2020 12:00:00 AM EDT suspended Test Strips - eCW1 ([facility]) Lancets - Lancets - 09/27/2020 12:00:00 AM EDT act kary Lancets - eCW1 ([facility]) Lancets - Lancets - 09/27/2020 12:00:00 AM EDT suspended Lancets - eCW1 ([facility]) Test Strips - UNK 09/27/2020 12:00:00 AM EDT acti ve Test Strips - eCW1 ([facility]) Glucometer UNK 09/27/2020 12:00:00 AM EDT suspend ed Glucometer eCW1 ([facility]) Lancets - Lancets - 09/27/2020 12:00:00 AM EDT suspended Lancets - eCW1 ([facility]) Lancets - Lancets - 09/27/2020 12:00:00 AM EDT suspended Lancets - eCW1 ([facility]) Glucometer UNK 09/27/2020 12:00:00 AM EDT suspend ed Glucometer eCW1 ([facility]) Test Strips - UNK 09/27/2020 12:00:00 AM EDT suspended Test Strips - eCW1 ([facility]) Lancets - Lancets - 09/27/2020 12:00:00 AM EDT suspended Lancets - eCW1 ([facility]) Ergocalciferol 66946 UNT Oral Capsule Ergocalciferol 1 .25 MG (40665 UT) Ergocalciferol 1.25 MG (41569 UT) 09/27/2020 12:00:00 AM EDT 1.0 {c apsule} suspended Ergocalciferol 1.25 MG (5 0000 UT) eCW1 ([facility]) Lancets - Lancets - 09/27/2020 12:00:00 AM EDT eleno pended eCW1 ([facility]) Glucometer UNK 09/27/2020 12:00:00 AM EDT suspend ed Glucometer eCW1 ([facility]) Test Strips - UNK 09/27/2020 12:00:00 AM EDT acti ve Test Strips - eCW1 ([facility]) Test Strips - UNK 09/27/2020 12:00:00 AM EDT suspended Test Strips - eCW1 ([facility]) Lancets - Lancets - 09/27/2020 12:00:00 AM EDT act kary Lancets - eCW1 ([facility]) Glucometer UNK 09/27/2020 12:00:00 AM EDT active Glucometer eCW1 ([facility]) Ergocalciferol 05015 UNT Oral Capsule Ergocalciferol 1 .25 MG (60921 UT) Ergocalciferol 1.25 MG (03588 UT) 09/27/2020 12:00:00 AM EDT 1.0 {c apsule} suspended Ergocalciferol 1.25 MG (5 0000 UT) eCW1 ([facility]) Test Strips - UNK 09/27/2020 12:00:00 AM EDT suspended Test Strips - eCW1 ([facility]) Test Strips - UNK 09/27/2020 12:00:00 AM EDT suspended Test Strips - eCW1 ([facility]) Glucometer UNK 09/27/2020 12:00:00 AM EDT active Glucometer eCW1 ([facility]) Test Strips - UNK 09/27/2020 12:00:00 AM EDT suspended Test Strips - eCW1 ([facility]) Glucometer UNK 09/27/2020 12:00:00 AM EDT suspend ed eCW1 ([facility]) Ergocalciferol 48462 UNT Oral Capsule Ergocalciferol 1 .25 MG (00437 UT) Ergocalciferol 1.25 MG (94075 UT) 09/27/2020 12:00:00 AM EDT 1.0 {c apsule} active Ergocalciferol 1.25 MG (5 0000 UT) eCW1 ([facility]) Test Strips - UNK 09/27/2020 12:00:00 AM EDT susp ended eCW1 ([facility]) Glucometer UNK 09/27/2020 12:00:00 AM EDT suspend ed Glucometer eCW1 ([facility]) Test Strips - UNK 09/27/2020 12:00:00 AM EDT susp ended eCW1 ([facility]) Test Strips - UNK 09/27/2020 12:00:00 AM EDT suspended Test Strips - eCW1 ([facility]) Sertraline 100 MG Oral Tablet [Zoloft] Zoloft 100 MG Zoloft 100 MG 08/23/2020 12:00:00 AM EST active Zoloft 1 00 MG eCW1 ([facility]) olopatadine 2 MG/ML Ophthalmic Solution Olopatadine HC l 0.2 % Olopatadine HCl 0.2 % 08/23/2020 12:00:00 AM EST 1.0 {drop_into_affected_eye} suspended Olopatadine HCl 0.2 % eCW1 ([facility]) Sertraline 100 MG Oral Tablet [Zoloft] Zoloft 100 MG Zoloft 100 MG 08/23/2020 12:00:00 AM EST 1.0 {tablet} active eCW1 ([facility]) olopatadine 2 MG/ML Ophthalmic Solution Olopatadine HC l 0.2 % Olopatadine HCl 0.2 % 08/23/2020 12:00:00 AM EST 1.0 {drop_into_affected_eye} suspended Olopatadine HCl 0.2 % eCW1 ([facility]) olopatadine 2 MG/ML Ophthalmic Solution Olopatadine HC l 0.2 % Olopatadine HCl 0.2 % 08/23/2020 12:00:00 AM EST 1.0 {drop_into_affected_eye} active Olopatadine HCl 0.2 % eCW1 ([facility]) olopatadine 2 MG/ML Ophthalmic Solution Olopatadine HC l 0.2 % Olopatadine HCl 0.2 % 08/23/2020 12:00:00 AM EST 1.0 {drop_into_affected_eye} suspended Olopatadine HCl 0.2 % eCW1 ([facility]) Sertraline 50 MG Oral Tablet [Zoloft] Zoloft 50 MG Zoloft 50 MG 08/23/2020 12:00:00 AM EST 1.0 {tablet} active Zo loft 50 MG eCW1 ([facility]) olopatadine 2 MG/ML Ophthalmic Solution Olopatadine HC l 0.2 % Olopatadine HCl 0.2 % 08/23/2020 12:00:00 AM EST 1.0 {drop_into_affected_eye} suspended eCW1 ([facility]) Sertraline 50 MG Oral Tablet [Zoloft] Zoloft 50 MG Zoloft 50 MG 08/23/2020 12:00:00 AM EST 1.0 {tablet} active Zo loft 50 MG eCW1 ([facility]) olopatadine 2 MG/ML Ophthalmic Solution Olopatadine HC l 0.2 % Olopatadine HCl 0.2 % 08/23/2020 12:00:00 AM EST 1.0 {drop_into_affected_eye} suspended Olopatadine HCl 0.2 % eCW1 ([facility]) Sertraline 50 MG Oral Tablet [Zoloft] Zoloft 50 MG Zoloft 50 MG 08/23/2020 12:00:00 AM EST 1.0 {tablet} active Zo loft 50 MG eCW1 ([facility]) olopatadine 2 MG/ML Ophthalmic Solution Olopatadine HC l 0.2 % Olopatadine HCl 0.2 % 08/23/2020 12:00:00 AM EST 1.0 {drop_into_affected_eye} suspended Olopatadine HCl 0.2 % eCW1 ([facility]) Sertraline 100 MG Oral Tablet [Zoloft] Zoloft 100 MG Zoloft 100 MG 08/23/2020 12:00:00 AM EST 1.0 {tablet} active Zo loft 100 MG eCW1 ([facility]) Losartan Potassium 50 MG Oral Tablet Losartan Potassium 50 M G 08/23/2020 12:00:00 AM EST 1.0 {tablet} active Lo sartan Potassium 50 MG eCW1 ([facility]) Sertraline 100 MG Oral Tablet [Zoloft] Zoloft 100 MG Zoloft 100 MG 08/23/2020 12:00:00 AM EST active Zoloft 1 00 MG eCW1 ([facility]) Losartan Potassium 50 MG Oral Tablet Losartan Potassium 50 M G 08/23/2020 12:00:00 AM EST 1.0 {tablet} active Lo sartan Potassium 50 MG eCW1 ([facility]) Sertraline 50 MG Oral Tablet [Zoloft] Zoloft 50 MG Zoloft 50 MG 08/23/2020 12:00:00 AM EST 1.0 {tablet} active Zo loft 50 MG eCW1 ([facility]) olopatadine 2 MG/ML Ophthalmic Solution Olopatadine HC l 0.2 % Olopatadine HCl 0.2 % 08/23/2020 12:00:00 AM EST 1.0 {drop_into_affected_eye} suspended eCW1 ([facility]) Sertraline 50 MG Oral Tablet [Zoloft] Zoloft 50 MG Zoloft 50 MG 08/23/2020 12:00:00 AM EST 1.0 {tablet} active Zo loft 50 MG eCW1 ([facility]) Sertraline 50 MG Oral Tablet [Zoloft] Zoloft 50 MG Zoloft 50 MG 08/23/2020 12:00:00 AM EST 1.0 {tablet} active Zo loft 50 MG eCW1 ([facility]) Losartan Potassium 50 MG Oral Tablet Losartan Potassium 50 M G 08/23/2020 12:00:00 AM EST 1.0 {tablet} active Lo sartan Potassium 50 MG eCW1 ([facility]) Losartan Potassium 50 MG Oral Tablet Losartan Potassium 50 M G 08/23/2020 12:00:00 AM EST 1.0 {tablet} active Lo sartan Potassium 50 MG eCW1 ([facility]) Sertraline 100 MG Oral Tablet [Zoloft] Zoloft 100 MG Zoloft 100 MG 08/23/2020 12:00:00 AM EST 1.0 {tablet} active Zo loft 100 MG eCW1 ([facility]) Losartan Potassium 50 MG Oral Tablet Losartan Potassium 50 M G 08/23/2020 12:00:00 AM EST 1.0 {tablet} active Lo sartan Potassium 50 MG eCW1 ([facility]) Losartan Potassium 50 MG Oral Tablet Losartan Potassium 50 M G 08/23/2020 12:00:00 AM EST 1.0 {tablet} active Lo sartan Potassium 50 MG eCW1 ([facility]) Losartan Potassium 50 MG Oral Tablet Losartan Potassium 50 M G 08/23/2020 12:00:00 AM EST 1.0 {tablet} active Lo sartan Potassium 50 MG eCW1 ([facility]) olopatadine 2 MG/ML Ophthalmic Solution Olopatadine HC l 0.2 % Olopatadine HCl 0.2 % 08/23/2020 12:00:00 AM EST 1.0 {drop_into_affected_eye} suspended Olopatadine HCl 0.2 % eCW1 ([facility]) olopatadine 2 MG/ML Ophthalmic Solution Olopatadine HC l 0.2 % Olopatadine HCl 0.2 % 08/23/2020 12:00:00 AM EST 1.0 {drop_into_affected_eye} suspended Olopatadine HCl 0.2 % eCW1 ([facility]) Sertraline 100 MG Oral Tablet [Zoloft] Zoloft 100 MG Zoloft 100 MG 08/23/2020 12:00:00 AM EST 1.0 {tablet} active Zo loft 100 MG eCW1 ([facility]) Sertraline 50 MG Oral Tablet [Zoloft] Zoloft 50 MG Zoloft 50 MG 08/23/2020 12:00:00 AM EST 1.0 {tablet} active eCW1 ([facility]) olopatadine 2 MG/ML Ophthalmic Solution Olopatadine HC l 0.2 % Olopatadine HCl 0.2 % 08/23/2020 12:00:00 AM EST 1.0 {drop_into_affected_eye} active Olopatadine HCl 0.2 % eCW1 ([facility]) Losartan Potassium 50 MG Oral Tablet Losartan Potassium 50 M G 08/23/2020 12:00:00 AM EST 1.0 {tablet} active Lo sartan Potassium 50 MG eCW1 ([facility]) Losartan Potassium 50 MG Oral Tablet Losartan Potassium 50 M G 08/23/2020 12:00:00 AM EST 1.0 {tablet} active Lo sartan Potassium 50 MG eCW1 ([facility]) Losartan Potassium 50 MG Oral Tablet Losartan Potassium 50 M G 08/23/2020 12:00:00 AM EST 1.0 {tablet} active Lo sartan Potassium 50 MG eCW1 ([facility]) olopatadine 2 MG/ML Ophthalmic Solution Olopatadine HC l 0.2 % Olopatadine HCl 0.2 % 08/23/2020 12:00:00 AM EST 1.0 {drop_into_affected_eye} suspended Olopatadine HCl 0.2 % eCW1 ([facility]) Losartan Potassium 50 MG Oral Tablet Losartan Potassium 50 M G 08/23/2020 12:00:00 AM EST 1.0 {tablet} active Lo sartan Potassium 50 MG eCW1 ([facility]) Losartan Potassium 50 MG Oral Tablet Losartan Potassium 50 M G 08/23/2020 12:00:00 AM EST 1.0 {tablet} active eCW1 ([facility]) Losartan Potassium 50 MG Oral Tablet Losartan Potassium 50 M G 08/23/2020 12:00:00 AM EST 1.0 {tablet} active eCW1 ([facility]) olopatadine 2 MG/ML Ophthalmic Solution Olopatadine HC l 0.2 % Olopatadine HCl 0.2 % 08/23/2020 12:00:00 AM EST 1.0 {drop_into_affected_eye} suspended Olopatadine HCl 0.2 % eCW1 ([facility]) olopatadine 2 MG/ML Ophthalmic Solution Olopatadine HC l 0.2 % Olopatadine HCl 0.2 % 08/23/2020 12:00:00 AM EST 1.0 {drop_into_affected_eye} suspended Olopatadine HCl 0.2 % eCW1 ([facility]) Sertraline 50 MG Oral Tablet [Zoloft] Zoloft 50 MG Zoloft 50 MG 08/23/2020 12:00:00 AM EST 1.0 {tablet} active Zo loft 50 MG eCW1 ([facility]) Losartan Potassium 50 MG Oral Tablet Losartan Potassium 50 M G 08/23/2020 12:00:00 AM EST 1.0 {tablet} active Lo sartan Potassium 50 MG eCW1 ([facility]) Insurance Providers Payer name Policy type / Coverage type Policy ID Covered libertarian ID Covered libertarian's relationship to geiger Policy Geiger Plan Information DILCIA [id number] [place] [id number] MVP Medicaid Health Maintenance Organization (O) [id number] Self [id number] MVP MCDHMO [id number] SP [id number] ANSI-Medicaid [id number] ANSI-Not a Secondary Insurance [id number] ANSI-Medicaid [id number] ANSI-Commercial [id number] ANSI-Medicaid [id number] SELF PAY ONLY [id number] SP [id number] MVP MCDHMO [id number] SP [id number] MVP MCDHMO [id number] SP [id number] DILCIA [id number] SP [id number] MVP MCDHMO [id number] SP [id number] MVP Commercial [id number] Self [id number] ANSI-Commercial [id number] ANSI-Not a Secondary Insurance [id number] ANSI-Medicaid [id number] ANSI-Medicaid [id number] ANSI-Not a Secondary Insurance [id number] ANSI-Commercial [id number] ANSI-Medicaid [id number] ANSI-Medicaid [id number] ANSI-Medicaid [id number] ANSI-Medicaid [id number] ANSI-Commercial [id number] ANSI-Not a Secondary Insurance [id number] ANSI-Not a Secondary Insurance [id number] ANSI-Commercial [id number] ANSI-Medicaid [id number] ANSI-Medicaid [id number] ANSI-Not a Secondary Insurance [id number] ANSI-Commercial [id number] ANSI-Medicaid [id number] ANSI-Medicaid [id number] MVP Commercial [id number] Self [id number] P HEALTH CARE O [id number] S [id number] P Commercial [id number] Self [id number] MVP Commercial [id number] Self [id number] P MEDICAID HMO -O/P [id number] 18 [id number] MEDICAID [id number] SP [id number] [facility] [id number] SP [id number] [facility] [id number] SP [id number] [facility] Commercial [id number] Self [id number] [facility] Commercial [id number] Self [id number] SELF PAY ONLY UNAVAILABLE SP UNAV AILABLE DILCIA CARE [place] O [id number] S [id number] SELF PAY UNAVAILABLE SP UNAVAILA BLE [facility] [id number] SP [id number] ANSI-Medicaid [id number] ANSI-Not a Secondary Insurance [id number] ANSI-Commercial [id number] Problems, Conditions, and Diagnoses Code Display Name Description Problem Type Effective Dates Data Source(s) Z68.32 [id number] Adult BMI 32.0-32.9 kg/sq m Problem 02/20/20 12:00:00 AM EDT eCW1 ([facility]) N93.9 [id number] Abnormal uterine bleeding Problem 10/26/2020 12:00:00 AM EDT eCW1 ([facility]) N97.0 [id number] Infertility associated with anovulation P roblem 10/26/2020 12:00:00 AM EDT eCW1 ([facility]) E78.1 [id number] Hypertriglyceridemia Problem 09/27/2020 12:0 0:00 AM EDT eCW1 ([facility]) E11.9 [id number] Type 2 diabetes kei itus without complication, without long-term current use of insulin Problem 09/27/2020 12:00:00 AM EDT eCW1 ([facility]) E55.9 [id number] Vitamin D deficiency Problem 09/27/2020 12:0 0:00 AM EDT eCW1 ([facility]) I11.9 Hypertensive heart disease without conge stive heart failure Hypertensive heart disease without heart failure Problem 08/23/2020 12:00:[address] eCW1 ([facility]) Surgeries/Procedures Procedure Description Date Indications Data Source(s) URINE TEST 12/09/2020 12:00:00 AM EDT eCW1 ([facility]) Results ID Date Data Source Basic Metabolic Profile (BMP) 01/26/2021 12:00:00 AM EDT eCW 1 ([facility]) Name Value Range Interpretation Code Description Data Tressa rce(s) Supporting Document(s) 83 70-100 GLUCOSE, FASTING eCW1 ([facility]) 16 7-18 BLOOD UREA NITROGEN eCW1 ([facility]) > 60.0 >60 GLOMERULAR FILTRATION RATE eCW 1 ([facility]) 138 136-145 SODIUM LEVEL eCW1 ([facility]) 0.54 0.55-1.30 CREATININE FOR GFR eCW1 ([facility]) 4.0 3.5-5.1 POTASSIUM SERUM eCW1 ([facility]) 105 98-107 CHLORIDE LEVEL eCW1 ([facility]) 28 21-32 CARBON DIOXIDE LEVEL eCW1 ([facility]) 8.6 8.5-10.1 CALCIUM LEVEL eCW1 ([facility]) ID Date Data Source [id number] 01/26/2021 12:00:00 AM EDT eCW1 ([facility]) Name Value Range Interpretation Code Description Data Tressa rce(s) Supporting Document(s) Hemoglobin A1c/Hemoglobin.total in Blood 5.4 HEMOGLOBIN A1c eCW1 ([facility]) ID Date Data Source [id number] 07/15/2020 12:00:00 AM EST [facility] Name Value Range Interpretation Code Description Data Tressa rce(s) Supporting Document(s) SARS coronavirus 2 RNA [Presence] in Res piratory specimen by ROBERT with probe detection NEGATIVE [facility] This lab was ordered by Miguel Cadet and reported by [employer]. ID Date Data Source [id number] 07/15/2020 12:00:00 AM EST [facility] Name Value Range Interpretation Code Description Data Tressa rce(s) Supporting Document(s) Carestart Rapid COVID Antigen Test Negative [facility] This lab was reported by Miguel wilson. Procedure Social History Code Duration Value Status Description Data Source(s ) Smoking 01/24/2021 12:00:00 AM EDT Never Smoker completed Never S moker eCW1 ([facility]) Smoking 01/24/2021 12:00:00 AM EDT Never Smoker completed Never S moker eCW1 ([facility]) Smoking 01/24/2021 12:00:00 AM EDT Never Smoker completed Never S moker eCW1 ([facility]) Smoking 01/24/2021 12:00:00 AM EDT Never Smoker completed Never S moker eCW1 ([facility]) Smoking 01/24/2021 12:00:00 AM EDT Never Smoker completed Never S moker eCW1 ([facility]) Smoking 01/24/2021 12:00:00 AM EDT Never Smoker completed Never S moker eCW1 ([facility]) Smoking 12/09/2020 12:00:00 AM EDT Never Smoker completed Never S moker eCW1 ([facility]) Smoking 10/26/2020 12:00:00 AM EDT Never Smoker completed Never S moker eCW1 ([facility]) Smoking 10/26/2020 12:00:00 AM EDT Never Smoker completed Never S moker eCW1 ([facility]) Smoking 09/27/2020 12:00:00 AM EDT Never Smoker completed Never S moker eCW1 ([facility]) Smoking 09/27/2020 12:00:00 AM EDT Never Smoker completed Never S moker eCW1 ([facility]) Smoking 09/27/2020 12:00:00 AM EDT Never Smoker completed Never S moker eCW1 ([facility]) Smoking 08/23/2020 12:00:00 AM EST Never Smoker completed Never S moker eCW1 ([facility]) Smoking 08/23/2020 12:00:00 AM EST Never Smoker completed Never S moker eCW1 ([facility]) Vital Signs ID Date Data Source UNK Name Value Range Interpretation Code Description Data Source(s) Body weight 207.8 [lb_av] 207.8 [lb_av] eCW1 ([facility]) Body height 67 [in_i] 67 [in_i] eCW1 ([facility]) Body mass index (BMI) [Ratio] 32.54 kg/m2 32.54 kg/m2 eCW1 ([facility]) Heart rate 77 /min 77 /min eCW1 ([facility]) Respiratory rate 18 /min 18 /min eCW1 ([facility]) Body temperature 97.4 [degF] 97.4 [degF] eCW1 ( [facility]) Systolic blood pressure 128 mm[Hg] 128 mm[Hg] e CW1 ([facility]) Diastolic blood pressure 78 mm[Hg] 78 mm[Hg] eCW1 ([facility]) Body weight 207 [lb_av] 207 [lb_av] eCW1 ([facility]) Body weight 93.89 kg 93.89 kg eCW1 ([facility]) Body height 67 [in_i] 67 [in_i] eCW1 ([facility]) Body mass index (BMI) [Ratio] 32.42 kg/m2 32.42 kg/m2 eCW1 ([facility]) Systolic blood pressure 140 mm[Hg] 140 mm[Hg] e CW1 ([facility]) Diastolic blood pressure 80 mm[Hg] 80 mm[Hg] eCW1 ([facility]) Body weight 219 [lb_av] 219 [lb_av] eCW1 ([facility]) Body height 67 [in_i] 67 [in_i] eCW1 ([facility]) Body mass index (BMI) [Ratio] 34.3 kg/m2 34.3 k g/m2 eCW1 ([facility]) Systolic blood pressure 122 mm[Hg] 122 mm[Hg] e CW1 ([facility]) Diastolic blood pressure 74 mm[Hg] 74 mm[Hg] eCW1 ([facility]) Body weight 238.4 [lb_av] 238.4 [lb_av] eCW1 ([facility]) Body height 67 [in_i] 67 [in_i] eCW1 ([facility]) Body mass index (BMI) [Ratio] 37.33 kg/m2 37.33 kg/m2 eCW1 ([facility]) Heart rate 96 /min 96 /min eCW1 ([facility]) Respiratory rate 18 /min 18 /min eCW1 ([facility]) Body temperature 97.9 [degF] 97.9 [degF] eCW1 ( [facility]) Systolic blood pressure 140 mm[Hg] 140 mm[Hg] e CW1 ([facility]) Diastolic blood pressure 84 mm[Hg] 84 mm[Hg] eCW1 ([facility]) Body weight 249.0 [lb_av] 249.0 [lb_av] eCW1 ([facility]) Body height 67 [in_i] 67 [in_i] eCW1 ([facility]) Body mass index (BMI) [Ratio] 38.99 kg/m2 38.99 kg/m2 eCW1 ([facility]) Heart rate 111 /min 111 /min eCW1 ([facility]) Respiratory rate 18 /min 18 /min eCW1 ([facility]) Body temperature 97.0 [degF] 97.0 [degF] eCW1 ( [facility]) Systolic blood pressure 160 mm[Hg] 160 mm[Hg] e CW1 ([facility]) Diastolic blood pressure 72 mm[Hg] 72 mm[Hg] eCW1 ([facility]) Patient Treatment Plan of Care Planned Activity Planned Date Details Description Data Source (s) Ozempic (0.25 or 0.5 MG/DOSE) 2 MG/1.5ML 01/24/2021 12:00:00 AM EDT eCW1 ([facility]) Ozempic (0.25 or 0.5 MG/DOSE) 2 MG/1.5ML 01/24/2021 12:00:00 AM EDT eCW1 ([facility]) Ozempic (0.25 or 0.5 MG/DOSE) 2 MG/1.5ML 01/24/2021 12:00:00 AM EDT eCW1 ([facility]) Ozempic (0.25 or 0.5 MG/DOSE) 2 MG/1.5ML 01/24/2021 12:00:00 AM EDT eCW1 ([facility]) Ozempic (0.25 or 0.5 MG/DOSE) 2 MG/1.5ML 01/24/2021 12:00:00 AM EDT eCW1 ([facility]) Ozempic (0.25 or 0.5 MG/DOSE) 2 MG/1.5ML 01/24/2021 12:00:00 AM EDT eCW1 ([facility]) medroxyprogesterone acetate 10 MG Oral Tablet [Provera ] 10/26/2020 12:00:00 AM EDT eCW1 ([facility]) medroxyprogesterone acetate 10 MG Oral Tablet [Provera ] 10/26/2020 12:00:00 AM EDT eCW1 ([facility]) pioglitazone 15 MG Oral Tablet 10/07/2020 12:00:00 AM EDT eCW1 ([facility]) pioglitazone 15 MG Oral Tablet 10/07/2020 12:00:00 AM EDT eCW1 ([facility]) sitagliptin 25 MG Oral Tablet [Januvia] 10/04/2020 12:00:00 AM EDT eCW1 ([facility]) sitagliptin 25 MG Oral Tablet [Januvia] 10/04/2020 12:00:00 AM EDT eCW1 ([facility]) sitagliptin 25 MG Oral Tablet [Januvia] 10/04/2020 12:00:00 AM EDT eCW1 ([facility]) Test Strips - 09/27/2020 12:00:00 AM EDT eCW1 ([facility]) Lancets - 09/27/2020 12:00:00 AM EDT e CW1 ([facility]) Glucometer 09/27/2020 12:00:00 AM EDT e CW1 ([facility]) Ergocalciferol 78422 UNT Oral Capsule 09/27/2020 12:00:00 AM EDT eCW1 ([facility]) Test Strips - 09/27/2020 12:00:00 AM EDT eCW1 ([facility]) Lancets - 09/27/2020 12:00:00 AM EDT e CW1 ([facility]) Glucometer 09/27/2020 12:00:00 AM EDT e CW1 ([facility]) Ergocalciferol 88644 UNT Oral Capsule 09/27/2020 12:00:00 AM EDT eCW1 ([facility]) Test Strips - 09/27/2020 12:00:00 AM EDT eCW1 ([facility]) Lancets - 09/27/2020 12:00:00 AM EDT e CW1 ([facility]) Glucometer 09/27/2020 12:00:00 AM EDT e CW1 ([facility]) Ergocalciferol [id number] UNT Oral Capsule 09/27/2020 12:00:00 AM EDT eCW1 ([facility]) Losartan Potassium 50 MG Oral Tablet 08/23/2020 12:00:00 AM EST eCW1 ([facility]) Sertraline 100 MG Oral Tablet [Zoloft] 08/23/2020 12:00:00 AM EST eCW1 ([facility]) Losartan Potassium 50 MG Oral Tablet 08/23/2020 12:00:00 AM EST eCW1 ([facility]) Sertraline 100 MG Oral Tablet [Zoloft] 08/23/2020 12:00:00 AM EST eCW1 ([facility]) Sertraline 100 MG Oral Tablet [Zoloft] 08/23/2020 12:00:00 AM EST eCW1 ([facility]) Losartan Potassium 50 MG Oral Tablet 08/23/2020 12:00:00 AM EST eCW1 ([facility]) Sertraline 100 MG Oral Tablet [Zoloft] 08/23/2020 12:00:00 AM EST eCW1 ([facility]) Sertraline 100 MG Oral Tablet [Zoloft] 08/23/2020 12:00:00 AM EST eCW1 ([facility]) Losartan Potassium 50 MG Oral Tablet 08/23/2020 12:00:00 AM EST eCW1 ([facility]) Sertraline 50 MG Oral Tablet [Zoloft] 08/23/2020 12:00:00 AM EST eCW1 ([facility]) olopatadine 2 MG/ML Ophthalmic Solution 08/23/2020 12:00:00 AM EST eCW1 ([facility]) Losartan Potassium 50 MG Oral Tablet 08/23/2020 12:00:00 AM EST eCW1 ([facility]) Sertraline 50 MG Oral Tablet [Zoloft] 08/23/2020 12:00:00 AM EST eCW1 ([facility]) olopatadine 2 MG/ML Ophthalmic Solution 08/23/2020 12:00:00 AM EST eCW1 ([facility]) Losartan Potassium 50 MG Oral Tablet 08/23/2020 12:00:00 AM EST eCW1 ([facility]) Sertraline 50 MG Oral Tablet [Zoloft] 08/23/2020 12:00:00 AM EST eCW1 ([facility]) Sertraline 100 MG Oral Tablet [Zoloft] 08/23/2020 12:00:00 AM EST eCW1 ([facility])
[2021-05-30] MEDS ORDERED: ZOLO100T (13:34)
[2021-05-30] MEDS ORDERED: LOSA50TA88 (13:34)
[2021-05-30 14:16] LABS: BASO # 0.1 10^3/uL (0.0-0.2); BASO % 0.7 % (0.0-1.0); EOS # 0.2 10^3/uL (0.0-0.5); EOS % 2.6 % (0.0-3.0); HEMATOCRIT 30.1 % (36.0-47.0); HEMOGLOBIN 8.9 g/dl (12.0-15.5); LYMPH # 2.6 10^3/uL (1.5-5.0); LYMPH % 38.8 % (24.0-44.0); MEAN CORPUSCULAR HEMOGLOBIN 21.5 pg (27.0-33.0); MEAN CORPUSCULAR HGB CONC 29.6 g/dl (32.0-36.5); MEAN CORPUSCULAR VOLUME 72.7 fl (80.0-96.0); MONO # 0.4 10^3/uL (0.0-0.8); MONO % 5.1 % (2.0-8.0); NEUTROPHILS # 3.6 10^3/uL (1.5-8.5); NEUTROPHILS % 52.4 % (36.0-66.0); PLATELET COUNT, AUTOMATED 231 10^3/uL (150-450); RED BLOOD COUNT 4.14 10^6/uL (4.00-5.40); WHITE BLOOD COUNT 6.8 10^3/uL (4.0-10.0)
[2021-05-30 14:45] LABS: ALBUMIN 3.6 GM/DL (3.2-5.2); ALT/SGPT 21 U/L (12-78); BILIRUBIN,DIRECT < 0.1 MG/DL (0.0-0.2); BILIRUBIN,TOTAL 0.2 MG/DL (0.2-1.0); BLOOD UREA NITROGEN 14 MG/DL (7-18); CALCIUM LEVEL 8.8 MG/DL (8.5-10.1); CARBON DIOXIDE LEVEL 30 MEQ/L (21-32); CHLORIDE LEVEL 106 MEQ/L (98-107); CREATININE FOR GFR 0.58 MG/DL (0.55-1.30); GLOMERULAR FILTRATION RATE > 60.0 (>60); GLUCOSE, FASTING 83 MG/DL (70-100); LIPASE 110 U/L (73-393); POTASSIUM SERUM 4.2 MEQ/L (3.5-5.1); SODIUM LEVEL 139 MEQ/L (136-145)
[2021-05-30] MEDS ORDERED: PANTOPRAZOLE 40MG VIAL (C9113 PER 1) IV ONE (18:00)
[2021-05-30 18:36] LABS: INR 0.99; PROTHROMBIN TIME 13.5 SECONDS (12.7-14.5)
[2021-05-30 18:37] LABS: PARTIAL THROMBOPLASTIN TIME 33.3 SECONDS (25.9-37.0)
[2021-05-30 18:37] LABS: FERRITIN 3 NG/ML (8-252); IRON (FE) 21 UG/DL (50-170); TOTAL IRON BINDING CAPACITY 519 UG/DL (250-450)
[2021-05-30] MEDS ORDERED: ISOVUE-370 76% 100ML VIAL As Ordered ONE (18:52)
--- NOTE | 2021-05-30 20:13 | REPVR ---
PROCEDURE INFORMATION: Exam: CT Abdomen And Pelvis With Contrast Exam date and time: 05/30/2021 7:30 PM Age: 35 years old Clinical indication: Abdominal pain; Epigastric; Additional info: Epigastric pain, gi bleeding, TECHNIQUE: Imaging protocol: Computed tomography of the abdomen and pelvis with contrast. Axial, coronal and sagittal reformatted images were created and reviewed. Radiation optimization: All CT scans at this facility use at least one of these dose optimization techniques: automated exposure control; mA and/or kV adjustment per patient size (includes targeted exams where dose is matched to clinical indication); or iterative reconstruction. Contrast material: ISOVUE 370; Contrast volume: 100 ml; Contrast route: INTRAVENOUS (IV); COMPARISON: CT ABD PELVIS W/O CONTRAST 12/26/2017 11:15 AM FINDINGS: Liver: Mild hepatomegaly. Mild, diffuse hepatic steatosis. Gallbladder and bile ducts: No radiodense gallstones. No biliary ductal dilatation. Pancreas: Unremarkable. Spleen: Mild splenomegaly. Adrenal glands: Normal. No mass. Kidneys and ureters: No mass. No radiodense calculi. No hydronephrosis. Stomach and bowel: No bowel wall thickening. No obstruction. No pneumatosis. Appendix: Normal. Intraperitoneal space: No free fluid. No organized fluid collection. No free air. Vasculature: Unremarkable. No aneurysm. Lymph nodes: No pathologically enlarged lymph nodes. Urinary bladder: Unremarkable as visualized. Reproductive: Unremarkable. Bones/joints: No acute osseous abnormality. Mild degenerative changes. Soft tissues: Unremarkable. IMPRESSION: 1. Mild hepatosplenomegaly and hepatic steatosis. 2. Additional findings, as above. Electronically signed by: Sudheer Francis On 05/30/2021 20:12:53 PM
[2021-05-30] MEDS ORDERED: LOSA50TA88 PO (20:52)
[2021-05-30] MEDS ORDERED: ZOLO100T PO (20:52)
[2021-05-30] MEDS ORDERED: HOME MED LIST COMPLETE! XX SCH (20:55)
[2021-05-30 22:31] LABS: HEMATOCRIT 28.1 % (36.0-47.0); HEMOGLOBIN 8.2 g/dl (12.0-15.5)
--- NOTE | 2021-05-30 22:31 | HPEPDOC ---
General Date of Admission 05/30/21 Date of Service: May 30, 2021 Chief Complaint The patient is a 35-year-old female admitted with a reason for visit of Abd Pain. Source: Patient History of Present Illness Liseth Metz is a 35yoF with significant medical history of htn, gerd and obesity who arrives with c/o intermittent bloody stool since Saturday 05/26. Pt reports she had episodes of diarrhea, bright red blood and clots in her toilet Saturday, Saturday and Saturday. She initially was concerned regarding possible menstruation, but with use of hygiene paper confirmed it was rectal output. She reports at one point over the weekend the bleeding continued rectally, when not actively defecating. She endorses associated mid abdominal pain in bandlike distribution moderate bl oating type pain. She describes associated poor po intake as "eating makes it worse"; she reports when she ate over the weekend pain increasing 1 hr post Po intake. She denies any recent food changes; she does work at [employer] and has been eating beans from there. She denies fever/ chills, n/v, chest pain, dizziness or SOB. She does describe palpitations over the weekend. She does report 3 weeks ago having similar episode of bloody stool x1 day. She endorses a history of "digestive issues" and hemorrhoids- she has had a colonoscopy in past with Dr. Peralta and she reports they found polyps and she believes they removed them. She denies NSAID use or blood thinners. Denies hx of ulcers. She reports normal BM today and no abdominal pain, but encouraged to come to ED by family and she has not had any PO intake today d/t fear of recurrent episode. Of note, Ct a/p nonacute, + hepatosteatosis. Initial lab work remarkable for hgb decrease 13 to 8.9. Iron 21, transferrin 4, ferritin 3, TIBC 519, RDW 15.5 Pt will be admitted for further evaluation and management of presenting conc erns. Home Medications Scheduled Losartan Potassium (Losartan Potassium) 50 Mg Tablet, 50 MG PO DAILY, (Reported) Omeprazole (Omeprazole) 40 Mg Cap, 40 MG PO BID, (Reported) Sertraline Hcl (Zoloft) 100 Mg Tablet, 100 MG PO DAILY, (Reported) Allergies Coded Allergies: No Known Allergies (Unverified , 08/31/18) Past Medical History Medical History GERD, obesity, depression/anixety, htn, NIDDM- diet and weight loss controlled Surgical History top teeth removal (now has top dentures), colonoscopy Family History Significant Family History: Cancer, Hypertension Mother:htn, breast CA, "mental health issues"; Grandmother, maternal: breast CA, sister: "thyroid issues", bipolar Social History * Smoker: Denies Alcohol: Denies Drugs: marijuana Psychosocial History: Anxiety A-FIB/CHADSVASC A-FIB History Current/History of A-Fib/PAF?: No Current PO Anticoag Therapy: No Review of Systems Constitutional: Denies: Chills, Fever, Night Sweats Eyes: Denies: Pain, Vision change ENT: Denies: Head Aches, Ear Pain, Dysphagia Skin: Denies: Rash, Lesions, Breakdown Pulmonary: Denies: Dyspnea, Cough Cardiovascular: Denies: Chest Pain, Palpitations, Orthopnea, Paroxysmal Noc. Dyspnea, Lt Headedness Gastrointestinal: Reports: Abdominal Pain, Diarrhea, Hematochezia; Denies: Nausea, Vomiting Genitourinary: Denies: Dysuria, Frequency, Incontinence, Retention Hematologic: Denies: Bruising, Bleeding Excessively Musculoskeletal: Denies: Neck Pain, Back Pain, Joint Pain, Muscle Pain, Spasms Neurological: Denies: Weakness, Numbness, Change in speech, Confusion Psych: Reports: Anxiety; Denies: Depression, Memory Issues Physical Examination General Exam: Positive: Alert, Cooperative, No Acute Distress Eye Exam: Positive: PERRLA, Conjunctiva & lids normal, EOMI; Negative: Sclera icteric ENT Exam: Positive: Atraumatic, Mucous membr. moist/pink, Pharynx Normal Neck Exam: Positive: Supple; Negative: JVD, thyromegaly Chest Exam: Positive: Clear to auscultation, Normal air movement Heart Exam: Positive: Rate Normal, Regular Rhythm, Normal S1, Normal S2; Negative: Murmurs, Rubs Telemetry: Positive: No significant arrhythmia Abdomen Exam: Positive: Normal bowel sounds, Soft; Negative: Tenderness, Hepatospenomegaly Extremity Exam: Positive: Normal pulses; Negative: Clubbing, Cyanosis, Edema Skin Exam: Positive: Nl turgor and temperature; Negative: Breakdown, Lesion Neuro Exam: Positive: Normal Gait, Normal Speech, Cranial Nerves 3-12 NL, Reflexes 2+ Psych Exam: Positive: Mental status NL, Anxiety, Oriented x 3 Vital Signs Vital Signs Date Time Temp Pulse Resp B/P (MAP) Pulse Ox O2 Delivery O2 Flow Rate FiO2 05/30/21 17:42 98.5 54 18 192/89 (123) 100 Room Air Laboratory Data Labs 24H Laboratory Tests 2 05/30/21 14:06: Immature Granulocyte % (Auto) 0.4, Neutrophils (%) (Auto) 52.4, Lymphocytes (%) (Auto) 38.8, Monocytes (%) (Auto) 5.1, Eosinophils (%) (Auto) 2.6, Basophils (%) (Auto) 0.7, Neutrophils # (Auto) 3.6, Lymphocytes # (Auto) 2.6, Monocytes # (Auto) 0.4, Eosinophils # (Auto) 0.2, Basophils # (Auto) 0.1, Nucleated Red Blood Cells % (auto) 0.0, Anion Gap 3L, Glomerular Filtration Rate > 60.0, Calcium Level 8.8, Iron Level 21L, Total Iron Binding Capacity 519H, Transferrin % Saturation 4.0L, Ferritin 3L, Total Bilirubin 0.2, Direct Bilirubin < 0.1, Aspartate Amino Transf (AST/SGOT) 14, Alanine Aminotransferase (ALT/SGPT) 21, Alkaline Phosphatase 87, Total Protein 8.0, Albumin 3.6, Albumin/Globulin Ratio 0.8L, Lipase 110 05/30/21 18:16: Prothrombin Time 13.5, Prothromb Time International Ratio 0.99, Activated Partial Thromboplast Time 33.3 05/30/21 18:40: Coronavirus (COVID-19)(PCR) NEGATIVE 05/30/21 18:48: POC Beta HCG, Quantitative < 5.0 CBC/BMP Laboratory Tests 05/30/21 14:06 Assessment/Plan 1. Intermittent blood in Stool 08/02 GIB: In pt with hx of polyps, GERD, h emorrhoids. Concern for gastric ulcer given eating makes abdominal pain worse. -Monitor patient for overt bleeding/symptomatic anemia. Patient at one point did endorse palpitations, not consistently so. -N.p.o. after midnight; pend AM labs/ pt symptoms to consider diet trial vs NPO for scope -Trend H&H -Protonix IV twice daily -A.m. labs -Pending patient response if hemoglobin continues to trend down or recurrence of blood in stool consider GI consult inpatient versus patient to follow-up outp atient 2. HTN: Monitor BP in setting of above. Continue home medications once reconciled. 3. Anxiety: -Continue home medication. -Monitor mood, encourage nonpharmacologic methods/de-escalation techniques if patient with breakthrough anxiety. 4. Obesity: Pt has intentionally lost 85 pounds past year. Encourage continued diet/ exercise modifications and Weight management per PCP DVT Px: SCDs CODE Status: FULL Dispo planning: Home pend clinical course Plan / VTE VTE Prophylaxis Ordered?: Yes BITA WOODS NP May 30, 2021 20:49
[2021-05-30 23:10] VITALS: BP 150/87
[2021-05-30] MEDS ORDERED: NS 1,000 ML IV SCH (23:25)
[2021-05-31 04:36] LABS: BASO % 0.5 % (0.0-1.0); EOS # 0.2 10^3/uL (0.0-0.5); EOS % 2.2 % (0.0-3.0); HEMATOCRIT 28.2 % (36.0-47.0); HEMOGLOBIN 8.4 g/dl (12.0-15.5); LYMPH # 2.5 10^3/uL (1.5-5.0); LYMPH % 34.2 % (24.0-44.0); MEAN CORPUSCULAR HEMOGLOBIN 21.4 pg (27.0-33.0); MEAN CORPUSCULAR HGB CONC 29.8 g/dl (32.0-36.5); MEAN CORPUSCULAR VOLUME 71.9 fl (80.0-96.0); MONO # 0.4 10^3/uL (0.0-0.8); MONO % 5.8 % (2.0-8.0); NEUTROPHILS # 4.2 10^3/uL (1.5-8.5); PLATELET COUNT, AUTOMATED 214 10^3/uL (150-450); RED BLOOD COUNT 3.92 10^6/uL (4.00-5.40); WHITE BLOOD COUNT 7.4 10^3/uL (4.0-10.0)
[2021-05-31 05:02] LABS: BLOOD UREA NITROGEN 12 MG/DL (7-18); CALCIUM LEVEL 8.4 MG/DL (8.5-10.1); CARBON DIOXIDE LEVEL 26 MEQ/L (21-32); CHLORIDE LEVEL 106 MEQ/L (98-107); CREATININE FOR GFR 0.59 MG/DL (0.55-1.30); GLOMERULAR FILTRATION RATE > 60.0 (>60); GLUCOSE, FASTING 83 MG/DL (70-100); POTASSIUM SERUM 3.9 MEQ/L (3.5-5.1); SODIUM LEVEL 140 MEQ/L (136-145)
[2021-05-31 06:00] VITALS: BP 135/80
[2021-05-31] MEDS: ACETAMINOPHEN TAB 650MG DOSE (2X325MG) PO PRN (06:16)
[2021-05-31] MEDS: SERTRALINE 100 MG TAB PO SCH (09:22)
[2021-05-31] MEDS: LOSARTAN 50MG TABLET PO SCH (09:22)
[2021-05-31] MEDS: PANTOPRAZOLE 40MG VIAL (C9113 PER 1) IV SCH ×2 (09:22→20:20)
[2021-05-31 09:30] LABS: RSV AMPLIFICATION NEGATIVE (NEGATIVE)
[2021-05-31 09:35] LABS: VITAMIN B12 LEVEL 353 PG/ML (247-911)
[2021-05-31] MEDS: SUCRALFATE 1 GM TAB PO SCH ×3 (12:00→20:20)
[2021-05-31 12:54] LABS: HEMATOCRIT 29.7 % (36.0-47.0); HEMOGLOBIN 8.7 g/dl (12.0-15.5)
[2021-05-31] MEDS ORDERED: IRON SUCROSE 500 MG in NS 250 ML IV ONE (13:00)
[2021-05-31] MEDS ORDERED: E-Z-PAQUE 96% w/w SUSP 176GM BTL As Ordered ONE (13:04)
[2021-05-31] MEDS ORDERED: E-Z-GAS II EFFERVESCENT PACKET (SODIUM BICARB./CITRIC ACID/SIMETHICONE) As Ordered ONE (13:05)
[2021-05-31] MEDS ORDERED: E-Z-HD 98% w/w 340GM SUSP BTL As Ordered ONE (13:05)
--- NOTE | 2021-05-31 13:09 | IPNPDOC ---
Subjective Date Seen The patient was seen on 05/31/21. Subjective Chief Complaint/HPI Patient continues to complain of pain and burning sensation in the epigastrium and across the upper abdomen. She also complains of intermittent crampy abdominal pain with diarrhea Objective Physical Examination General Exam: Positive: Alert, Cooperative, No Acute Distress Eye Exam: Positive: PERRLA, Conjunctiva & lids normal, EOMI; Negative: Sclera icteric ENT Exam: Positive: Atraumatic, Mucous membr. moist/pink, Pharynx Normal Neck Exam: Positive: Supple; Negative: JVD, thyromegaly Chest Exam: Positive: Clear to auscultation, Normal air movement Heart Exam: Positive: Rate Normal, Regular Rhythm, Normal S1, Normal S2; Negative: Murmurs, Rubs Telemetry: Positive: No significant arrhythmia Abdomen Exam: Positive: Normal bowel sounds, Soft, Tenderness (Epigastric); Negative: Hepatospenomegaly Extremity Exam: Positive: Normal pulses; Negative: Clubbing, Cyanosis, Edema Skin Exam: Positive: Nl turgor and temperature; Negative: Breakdown, Lesion Neuro Exam: Positive: Normal Gait, Normal Speech, Cranial Nerves 3-12 NL, Reflexes 2+ Psych Exam: Positive: Mental status NL, Anxiety, Oriented x 3 Assessment /Plan Assessment This is a 35yo F with significant medical history of htn, gerd and obesity who presented to the ED c/o intermittent bloody stool since 05/26. Patient also has chronic digestive issues with upper abdominal pain and burning which is worse after eating as well as chronic diarrhea going on for years. On presentation. Patient was noted to be anemic at 8.2 which is much lower than her 13 back in August 2020 she was also found to have severe iron deficiency with a ferritin of only 3. Patient was admitted for rectal bleeding, iron deficiency anemia. Rectal bleeding This is likely hemorrhoidal bleed Colonoscopy in 2018 showed both internal and external hemorrhoids Stool for occult blood is negative Severe iron deficiency with iron deficiency anemia This is due to heavy menstrual losses and October and December which required hormone treatment. As per patient she was over 300 pound earlier in the year and she has not had her menstrual bleeding for 4 years then she had worked extensively on a diet and has been able to lose 85 pounds. After the weight loss her menstrual periods restarted but they were extremely heavy. They feel that this may have made her iron deficient as well as decreased dietary intake of iron. We will give a 500 mg of IV Venofer We will put her on ferrous sulfate on discharge Chronic epigastric pain especially after food along with daily diarrhea several times We will get an upper GI series Patient could have peptic ulcer disease Will refer the patient to GI for further work-up as an outpatient Continue Protonix will add sucralfate HTN Continue losartan Anxiety: Continue sertraline History of morbid obesity obesity Pt has intentionally lost 85 pounds past year. Encourage continued diet/ exercise modifications and Weight management per PCP Fatty liver Seen in CT scan Plan/VTE VTE Prophylaxis Ordered?: Yes VS, I&O, 24H, Fishbone Vital Signs/I&O Vital Signs Date Time Temp Pulse Resp B/P (MAP) Pulse Ox O2 Delivery O2 Flow Rate FiO2 05/31/21 09:22 135/80 05/31/21 06:00 98.0 75 21 99 Room Air I&O- Last 24 Hours up to 6 AM 05/31/21 06:00 Intake Total 100 ml Balance 100 ml Laboratory Data 24H LABS Laboratory Tests 2 05/30/21 14:06: Immature Granulocyte % (Auto) 0.4, Neutrophils (%) (Auto) 52.4, Lymphocytes (%) (Auto) 38.8, Monocytes (%) (Auto) 5.1, Eosinophils (%) (Auto) 2.6, Basophils (%) (Auto) 0.7, Neutrophils # (Auto) 3.6, Lymphocytes # (Auto) 2.6, Monocytes # (Auto) 0.4, Eosinophils # (Auto) 0.2, Basophils # (Auto) 0.1, Nucleated Red Blood Cells % (auto) 0.0, Anion Gap 3L, Glomerular Filtration Rate > 60.0, C alcium Level 8.8, Iron Level 21L, Total Iron Binding Capacity 519H, Transferrin % Saturation 4.0L, Ferritin 3L, Total Bilirubin 0.2, Direct Bilirubin < 0.1, Aspartate Amino Transf (AST/SGOT) 14, Alanine Aminotransferase (ALT/SGPT) 21, Alkaline Phosphatase 87, Total Protein 8.0, Albumin 3.6, Albumin/Globulin Ratio 0.8L, Lipase 110 05/30/21 18:16: Prothrombin Time 13.5, Prothromb Time International Ratio 0.99, Activated Partial Thromboplast Time 33.3 05/30/21 18:40: Coronavirus (COVID-19)(PCR) NEGATIVE, Influenza Type A (RT-PCR) NEGATIVE, Influenza Type B (RT-PCR) NEGATIVE, Respiratory Syncytial Virus (PCR) NEGATIVE 05/30/21 18:48: POC Beta HCG, Quantitative < 5.0 05/31/21 04:22: Immature Granulocyte % (Auto) 0.3, Neutrophils (%) (Auto) 57.0, Lymphocytes (%) (Auto) 34.2, Monocytes (%) (Auto) 5.8, Eosinophils (%) (Auto) 2.2, Basophils (%) (Auto) 0.5, Neutrophils # (Auto) 4.2, Lymphocytes # (Auto) 2.5, Monocytes # (Auto) 0.4, Eosinophils # (Auto) 0.2, Basophils # (Auto) 0.0, Nucleated Red Blood Cells % (auto) 0.0, Anion Gap 8, Glomerular Filtration Rate > 60.0, Calcium Level 8.4L, Vitamin B12 Level 353 CBC/BMP Laboratory Tests 05/30/21 14:06 05/30/21 22:17 05/31/21 04:22 Microbiology Microbiology 05/30/21 Stool Occult Blood (EMILY) - Final, Complete Alice Moerno MD May 31, 2021 13:09
--- NOTE | 2021-05-31 16:52 | REP ---
INDICATION: chronic epigastric pain, diarrhea. COMPARISON: CT scan abdomen pelvis dated 05/30/2021 TECHNIQUE: This procedure was performed by ISRAEL Wyatt, under the direct supervision of Dr. Diaz. Images were reviewed with Dr. Diaz prior to dictation. Liquid barium and gas producing crystals were given in the erect position, as well as liquid barium in the prone oblique position in order to perform a double contrast upper GI examination. Additional liquid barium was given at the end of the examination in order to perform a small-bowel follow-through. FINDINGS: The inspector advanced composite film shows no organomegaly or pathological masses. The intestinal gas pattern is unremarkable. The oral and pharyngeal stages of deglutition were unremarkable. Esophageal transport is prompt and efficient and there is no evidence of esophagitis, stricture, or mucosal ring. There is no evidence of a hiatal hernia. Gastroesophageal reflux was not observed on this examination. The stomach padilla are normally outlined. The rugal folds are smooth and regular. There is no gastritis, neoplasm, or ulcerative disease. There is mucosal fold thickening in the duodenal bulb and 1st portion of the duodenum. This may represent duodenitis. The visualized portion of the proximal small bowel appears normal in course and caliber. The barium column was followed through the small bowel to the level of the terminal ileum. Small bowel transit time is approximately less than 60 minutes. During fluoroscopy gentle palpation shows all loops are freely movable and pliable. There is no fixed angulated loops. The small bowel mucosal pattern is normal in course and caliber. There is no transition to suggest a partial small bowel obstruction. Spot filming of the terminal ileum shows it to be unremarkable. IMPRESSION: There is mucosal fold thickening in the duodenal bulb and the 1st portion of duodenum. This may represent duodenitis. Otherwise unremarkable upper GI with small-bowel follow-through 2.4 minutes of fluoroscopy time was utilized for this procedure. Some fluoroscopic images are performed with last image hold technology. These images require no additional radiation. <Electronically signed by Shena Apodaca > 05/31/21 [id number] <Electronically signed by Michael Diaz > 05/31/21 [id number]
[2021-05-31 17:30] LABS: HEMATOCRIT 29.6 % (36.0-47.0); HEMOGLOBIN 8.8 g/dl (12.0-15.5)
[2021-05-31 20:00] VITALS: BP 155/90
[2021-06-01 06:53] VITALS: BP 132/79
[2021-06-01 07:13] LABS: BASO % 0.5 % (0.0-1.0); EOS # 0.1 10^3/uL (0.0-0.5); EOS % 1.6 % (0.0-3.0); HEMATOCRIT 27.9 % (36.0-47.0); HEMOGLOBIN 8.3 g/dl (12.0-15.5); LYMPH # 1.8 10^3/uL (1.5-5.0); LYMPH % 29.3 % (24.0-44.0); MEAN CORPUSCULAR HEMOGLOBIN 21.2 pg (27.0-33.0); MEAN CORPUSCULAR HGB CONC 29.7 g/dl (32.0-36.5); MEAN CORPUSCULAR VOLUME 71.2 fl (80.0-96.0); MONO # 0.4 10^3/uL (0.0-0.8); MONO % 5.6 % (2.0-8.0); NEUTROPHILS # 3.9 10^3/uL (1.5-8.5); NEUTROPHILS % 62.5 % (36.0-66.0); PLATELET COUNT, AUTOMATED 215 10^3/uL (150-450); RED BLOOD COUNT 3.92 10^6/uL (4.00-5.40); WHITE BLOOD COUNT 6.3 10^3/uL (4.0-10.0)
[2021-06-01 07:33] LABS: BLOOD UREA NITROGEN 8 MG/DL (7-18); CALCIUM LEVEL 8.9 MG/DL (8.5-10.1); CARBON DIOXIDE LEVEL 26 MEQ/L (21-32); CHLORIDE LEVEL 108 MEQ/L (98-107); CREATININE FOR GFR 0.58 MG/DL (0.55-1.30); GLOMERULAR FILTRATION RATE > 60.0 (>60); GLUCOSE, FASTING 83 MG/DL (70-100); POTASSIUM SERUM 3.8 MEQ/L (3.5-5.1); SODIUM LEVEL 141 MEQ/L (136-145)
[2021-06-01] MEDS ORDERED: PANTOPRAZOLE 40MG TAB (PROTONIX) PO SCH (09:00)
[2021-06-01 11:24] VITALS: BP 132/79
[2021-06-01] MEDS: ACETAMINOPHEN TAB 650MG DOSE (2X325MG) PO PRN (11:24)
[2021-06-01] MEDS: SUCRALFATE 1 GM TAB PO SCH ×2 (11:24→12:00)
[2021-06-01] MEDS: LOSARTAN 50MG TABLET PO SCH (11:24)
[2021-06-01] MEDS: SERTRALINE 100 MG TAB PO SCH (11:25)
[2021-06-01] MEDS ORDERED: SUCR1TA PO (12:17)
[2021-06-01] MEDS ORDERED: FERR325T3 PO (12:17)
--- NOTE | 2021-06-01 12:59 | DS.PDOC ---
Discharge Summary General Date of Admission May 30, 2021 at 20:36 Date of Discharge 06/01/21 Discharge Summary PROCEDURES PERFORMED DURING STAY: [None]. DISCHARGE DIAGNOSES: Hemorrhoidal bleeding Iron deficiency Anemia likely from heavy recent menstruals bleeds Duodenitis Chronic diarrhea. COMPLICATIONS/CHIEF COMPLAINT: Blood In Stool. HOSPITAL COURSE: This is a 35yo F with significant medical history of htn, gerd and obesity who presented to the ED c/o intermittent bloody stool since 05/26. Patient also has chronic digestive issues with upper abdominal pain and burning which is worse after eating as well as chronic diarrhea going on for years. On presentation. Patient was noted to be anemic at 8.2 which is much lower than her 13 back in August 2020 she was also found to have severe iron deficiency with a ferritin of only 3. Patient was admitted for rectal bleeding, iron deficiency anemia. Rectal bleeding This is likely hemorrhoidal bleed Colonoscopy in 2018 showed both internal and external hemorrhoids, hyperplastic polyps. Stool for occult blood is negative Severe iron deficiency with iron deficiency anemia This is due to heavy menstrual losses and October, November and December which required hormone treatment twice to stop the bleeding As per patient she was over 300 pound last year and she has not had her menstrual bleeding for 4 years then she had worked extensively on a diet and has been able to lose 85 pounds. After the weight loss her menstrual periods restarted but they were extremely heavy. I feel that this may have made her iron deficient as well as decreased dietary intake of iron. given 500 mg of IV Venofer continue ferrous sulphate on discharge. Chronic epigastric pain especially after food along with daily diarrhea several times upper GI series only shows duodenitis Will refer the patient to GI for further work-up as an outpatient Continue Protonix will add sucralfate HTN Continue losartan Anxiety: Continue sertraline History of morbid obesity obesity Pt has intentionally lost 85 pounds past year. Encourage continued diet/ exercise modifications and Weight management per PCP Fatty liver Seen in CT scan DISCHARGE MEDICATIONS: Please see below. ALLERGIES: Please see below. PHYSICAL EXAMINATION ON DISCHARGE: VITAL SIGNS: Please see below. General Exam: Positive: Alert, Cooperative, No Acute Distress Eye Exam: Positive: PERRLA, Conjunctiva & lids normal, EOMI; Negative: Sclera icteric ENT Exam: Positive: Atraumatic, Mucous membr. moist/pink, Pharynx Normal Neck Exam: Positive: Supple; Negative: JVD, thyromegaly Chest Exam: Positive: Clear to auscultation, Normal air movement Heart Exam: Positive: Rate Normal, Regular Rhythm, Normal S1, Normal S2; Negative: Murmurs, Rubs Telemetry: Positive: No significant arrhythmia Abdomen Exam: Positive: Normal bowel sounds, Soft, Tenderness (Epigastric); Negative: Hepatosplenomegaly Extremity Exam: Positive: Normal pulses; Negative: Clubbing, Cyanosis, Edema Skin Exam: Positive: Nl turgor and temperature; Negative: Breakdown, Lesion Neuro Exam: Positive: Normal Gait, Normal Speech, Cranial Nerves 3-12 NL, Reflexes 2+ Psych Exam: Positive: Mental status NL, Anxiety, Oriented x 3 LABORATORY DATA: Please see below. IMAGING: Liquid barium and gas producing crystals were given in the erect position, as well as liquid barium in the prone oblique position in order to perform a double contrast upper GI examination. Additional liquid barium was given at the end of the examination in order to perform a small-bowel follow-through. FINDINGS: The outsewer film shows no organomegaly or pathological masses. The intestinal gas pattern is unremarkable. The oral and pharyngeal stages of deglutition were unremarkable. Esophageal transport is prompt and efficient and there is no evidence of esophagitis, stricture, or mucosal ring. There is no evidence of a hiatal hernia. Gastroesophageal reflux was not observed on this examination. The stomach padilla are normally outlined. The rugal folds are smooth and regular. There is no gastritis, neoplasm, or ulcerative disease. There is mucosal fold thickening in the duodenal bulb and 1st portion of the duodenum. This may represent duodenitis. The visualized portion of the proximal small bowel appears normal in course and caliber. The barium column was followed through the small bowel to the level of the ter mar ileum. Small bowel transit time is approximately less than 60 minutes. During fluoroscopy gentle palpation shows all loops are freely movable and pliable. There is no fixed angulated loops. The small bowel mucosal pattern is normal in course and caliber. There is no transition to suggest a partial small bowel obstruction. Spot filming of the terminal ileum shows it to be unremarkable. IMPRESSION: There is mucosal fold thickening in the duodenal bulb and the 1st portion of duodenum. This may represent duodenitis. Otherwise unremarkable upper GI with small-bowel follow-through CT abdomen and pelvis: FINDINGS: Liver: Mild hepatomegaly. Mild, diffuse hepatic steatosis. Gallbladder and bile ducts: No radiodense gallstones. No biliary ductal dilatation. Pancreas: Unremarkable. Spleen: Mild splenomegaly. Adrenal glands: Normal. No mass. Kidneys and ureters: No mass. No radiodense calculi. No hydronephrosis. Stomach and bowel: No bowel wall thickening. No obstruction. No pneumatosis. Appendix: Normal. Intraperitoneal space: No free fluid. No organized fluid collection. No free air. Vasculature: Unremarkable. No aneurysm. Lymph nodes: No pathologically enlarged lymph nodes. Urinary bladder: Unremarkable as visualized. Reproductive: Unremarkable. Bones/joints: No acute osseous abnormality. Mild degenerative changes. Soft tissues: Unremarkable. IMPRESSION: 1. Mild hepatosplenomegaly and hepatic steatosis. 2. Additional findings, as above. ACTIVITY: [As tolerated]. DIET: As tolerated DISCHARGE PLAN: Home DISCHARGE INSTRUCTIONS: Dr Peralta in 4 to 6 weeks PMD in 2 weeks DISCHARGE CONDITION: [Stable]. TIME SPENT ON DISCHARGE: 40 minutes. Vital Signs/I&Os Vital Signs Date Time Temp Pulse Resp B/P (MAP) Pulse Ox O2 Delivery O2 Flow Rate FiO2 06/01/21 11:24 132/79 06/01/21 06:53 98.1 71 18 96 Room Air I&O- Last 24 Hours up to 6 AM 06/01/21 06:00 Intake Total 1260 ml Output Total 100 ml Balance 1160 ml Laboratory Data Labs 24H Laboratory Tests 2 06/01/21 06:50: Immature Granulocyte % (Auto) 0.5, Neutrophils (%) (Auto) 62.5, Lymphocytes (%) (Auto) 29.3, Monocytes (%) (Auto) 5.6, Eosinophils (%) (Auto) 1.6, Basophils (%) (Auto) 0.5, Neutrophils # (Auto) 3.9, Lymphocytes # (Auto) 1.8, Monocytes # (Auto) 0.4, Eosinophils # (Auto) 0.1, Basophils # (Auto) 0.0, Nucleated Red Blo od Cells % (auto) 0.0, Anion Gap 7L, Glomerular Filtration Rate > 60.0, Calcium Level 8.9 CBC/BMP Laboratory Tests 05/31/21 16:44 06/01/21 06:50 Microbiology Microbiology 05/30/21 Stool Occult Blood (EMILY) - Final, Complete Discharge Medications Scheduled Ferrous Sulfate (Ferrous Sulfate) 325 Mg Tablet.dr, 325 MG PO DAILY Losartan Potassium (Losartan Potassium) 50 Mg Tablet, 50 MG PO DAILY, (Reported) Omeprazole (Omeprazole) 40 Mg Cap, 40 MG PO BID, (Reported) Sertraline Hcl (Zoloft) 100 Mg Tablet, 100 MG PO DAILY, (Reported) Sucralfate (Sucralfate) 1 Gm Tablet, 1 GM PO ACHS Allergies Coded Allergies: No Known Allergies (Unverified , 08/31/18) Alice Moreno MD Jun 01, 2021 12:59
== END 2021-06-01 14:00 | disposition home or self-care (01) ==
LOC: M ED 12:19 → M ED INP 20:36 → M MS5PR 23:10
PROVIDERS: ADMIT Family Medicine; ATTEND Internal Medicine Nephrology
DX: K64.8 Other hemorrhoids (principal); K92.1 Melena; D50.9 Iron deficiency anemia, unspecified; K29.80 Duodenitis without bleeding; K52.9 Noninfective gastroenteritis and colitis, unspecified; I10 Essential (primary) hypertension; E66.01 Morbid (severe) obesity due to excess calories; K21.9 Gastro-esophageal reflux disease without esophagitis; R10.13 Epigastric pain; F41.9 Anxiety disorder, unspecified; K76.0 Fatty (change of) liver, not elsewhere classified; Z79.899 Other long term (current) drug therapy; F12.10 Cannabis abuse, uncomplicated
CPT/HCPCS: 36415; 74177; 74246; 80048; 80076; 82270; 82607; 82728; 83550; 83690; 84702; 85014; 85018; 85025; 85610; 85730; 86850; 86900; 86901; 87631; 96361; 96374; 96376; 99284; C9113; J1756; Q9967

== ENCOUNTER 2021-06-06 11:18 | Emergency (ER) | payer OTHER ==
[~2021-06-06] VITALS: Ht 170.2 cm; Wt 96.2 kg
[~2021-06-06 11:18] MED LIST changes: +FERR325T3 PO; +LOSA50TA88; +LOSA50TA88 PO; +SUCR1TA PO; +ZOLO100T; +ZOLO100T PO
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
--- OUTSIDE RECORDS SUMMARY | 2021-06-06 11:26 | CCD ---
Author Author [facility] Organization [facility] Address Unknown Phone Unavailable Support Name Relationship Address Phone TACO Next Of Kin [phone] [place] [address] [address] Next Of Kin [address] [place] [address] [place] [address] Unavailable LEOBARDO MALDONADO Next Of Kin [address] [place] [phone] GONZÁLEZ FINNEGAN Next Of Kin [address] [place] [address] GONZÁLEZ FINNEGAN ECON [address] [place] [address] Unavailable Re-disclosure Warning The records that you [...] is protected by Article 27-F of the [place] State Public Health law. If you continue you may have access to information: Regarding HIV / AIDS; Provided by facilities licensed or operated by the [facility] Office of Mental Health; or Provided by the [facility] Office for People With Developmental Disabilities. If such information is present, then the following [facility] mandated warning applies: This information has been [...] law may result in a fine or nursing home sentence or both. A general authorization for the release of medical or other information is NOT sufficient authorization for further disc losure. Family History Family Member Name Family Member Gender Family Member Status Date o f Status Description Data Source(s) Unknown Unknown Problem [facility] ([facility]) mother's brother Unknown Unknown Problem [facility] ([facility]) mother-dx 16yrs ago maternal grandmother Encounters Encounter Providers Location Date Indications Data Source(s ) Unknown [address] [facility] [id number] 05/29/2021 12:00:00 AM EST eCW1 ([facility] [place] Unknown [address] [facility] [id number] 04/24/2021 12:00:00 AM EDT eCW1 ([facility] [place]) Unknown [address] [facility] [id number] 02/24/2021 12:00:00 AM EDT eCW1 ([facility] [place]) Unknown [address] [facility] [id number] 01/31/2021 12:00:00 AM EDT eCW1 ([facility] [place]) Unknown [address] [facility] [id number] 01/26/2021 12:00:00 AM EDT eCW1 ([facility] [place]) Outpatient [address] [facility] [id number] 01/24/2021 12:00:00 AM EDT eCW1 ([facility] [place]) (WC PROC) [facility]Center Procedure [address] [place] [address] 12/09/2020 12:00:00 AM EDT eCW1 ([facility]) Unknown [address] [facility] [id number] 11/18/2020 12:00:00 AM EDT eCW1 ([facility]) [place] [address] [facility] [place] [address] 10/26/2020 12:00:00 AM EDT eCW1 ([facility]) Unknown [address] [facility] [address] 10/05/2020 12:00:00 AM EDT eCW1 ([facility]) Unknown [address] [facility] [address] 09/28/2020 12:00:00 AM EDT eCW1 ([facility]) Outpatient [address] [facility] [place] [address] 09/27/2020 12:00:00 AM EDT eCW1 ([facility]) Unknown [address] [facility] [address] 09/05/2020 12:00:00 AM EST eCW1 ([facility]) Outpatient [address] [facility] [place] [address] 08/23/2020 12:00:00 AM EST eCW1 ([facility]) Unknown [address] [facility] [address] 07/08/2020 12:00:00 AM EST eCW1 ([facility]) Medications Medication Brand Name Start Date Product Form Dose Route Admi nistrative Instructions Pharmacy Instructions Status Indications Reaction Description Data Source(s) Ozempic (0.25 or 0.5 MG/DOSE) 2 MG/1.5ML Ozempic (0.25 or 0.5 MG/DOSE) 2 MG/1.5ML 01/24/2021 12:00:00 AM EDT active Ozempic (0.25 or 0.5 MG/DOSE) 2 MG/1.5ML eCW1 ([facility]) Ozempic (0.25 or 0.5 MG/DOSE) 2 MG/1.5ML Ozempic (0.25 or 0.5 MG/DOSE) 2 MG/1.5ML 01/24/2021 12:00:00 AM EDT active Ozempic (0.25 or 0.5 MG/DOSE) 2 MG/1.5ML eCW1 ([facility]) Ozempic (0.25 or 0.5 MG/DOSE) 2 MG/1.5ML Ozempic (0.25 or 0.5 MG/DOSE) 2 MG/1.5ML 01/24/2021 12:00:00 AM EDT active Ozempic (0.25 or 0.5 MG/DOSE) 2 MG/1.5ML eCW1 ([facility]) Ozempic (0.25 or 0.5 MG/DOSE) 2 MG/1.5ML Ozempic (0.25 or 0.5 MG/DOSE) 2 MG/1.5ML 01/24/2021 12:00:00 AM EDT active Ozempic (0.25 or 0.5 MG/DOSE) 2 MG/1.5ML eCW1 ([facility]) Ozempic (0.25 or 0.5 MG/DOSE) 2 MG/1.5ML Ozempic (0.25 or 0.5 MG/DOSE) 2 MG/1.5ML 01/24/2021 12:00:00 AM EDT active eCW1 ([facility]) Ozempic (0.25 or 0.5 MG/DOSE) 2 MG/1.5ML Ozempic (0.25 or 0.5 MG/DOSE) 2 MG/1.5ML 01/24/2021 12:00:00 AM EDT active Ozempic (0.25 or 0.5 MG/DOSE) 2 MG/1.5ML eCW1 ([facility]) medroxyprogesterone acetate 10 MG Oral Tablet [Provera ] Provera 10 MG Provera 10 MG 10/26/2020 12:00:00 AM EDT 1.0 {tablet_with_food} suspended eCW1 ([facility]) medroxyprogesterone acetate 10 MG Oral Tablet [Provera ] Provera 10 MG Provera 10 MG 10/26/2020 12:00:00 AM EDT 1.0 {tablet_with_food} active eCW1 ([facility]) medroxyprogesterone acetate 10 MG Oral Tablet [Provera ] Provera 10 MG Provera 10 MG 10/26/2020 12:00:00 AM EDT 1.0 {tablet_with_food} suspended Provera 10 MG eCW1 ([facility]) medroxyprogesterone acetate 10 MG Oral Tablet [Provera ] Provera 10 MG Provera 10 MG 10/26/2020 12:00:00 AM EDT 1.0 {tablet_with_food} suspended Provera 10 MG eCW1 ([facility]) medroxyprogesterone acetate 10 MG Oral Tablet [Provera ] Provera 10 MG Provera 10 MG 10/26/2020 12:00:00 AM EDT 1.0 {tablet_with_food} suspended Provera 10 MG eCW1 ([facility]) medroxyprogesterone acetate 10 MG Oral Tablet [Provera ] Provera 10 MG Provera 10 MG 10/26/2020 12:00:00 AM EDT 1.0 {tablet_with_food} suspended Provera 10 MG eCW1 ([facility]) medroxyprogesterone acetate 10 MG Oral Tablet [Provera ] Provera 10 MG Provera 10 MG 10/26/2020 12:00:00 AM EDT 1.0 {tablet_with_food} suspended Provera 10 MG eCW1 ([facility]) medroxyprogesterone acetate 10 MG Oral Tablet [Provera ] Provera 10 MG Provera 10 MG 10/26/2020 12:00:00 AM EDT 1.0 {tablet_with_food} suspended Provera 10 MG eCW1 ([facility]) medroxyprogesterone acetate 10 MG Oral Tablet [Provera ] Provera 10 MG Provera 10 MG 10/26/2020 12:00:00 AM EDT 1.0 {tablet_with_food} active Provera 10 MG eCW1 ([facility]) pioglitazone 15 MG Oral Tablet Pioglitazone HCl 15 MG Piogli tazone HCl 15 MG 10/07/2020 12:00:00 AM EDT 1.0 {tablet} active Pioglitazone HCl 15 MG eCW1 ([facility]) pioglitazone 15 MG Oral Tablet Pioglitazone HCl 15 MG Piogli tazone HCl 15 MG 10/07/2020 12:00:00 AM EDT 1.0 {tablet} suspende d Pioglitazone HCl 15 MG eCW1 ([facility]) pioglitazone 15 MG Oral Tablet Pioglitazone HCl 15 MG Piogli tazone HCl 15 MG 10/07/2020 12:00:00 AM EDT 1.0 {tablet} suspende d Pioglitazone HCl 15 MG eCW1 ([facility]) pioglitazone 15 MG Oral Tablet Pioglitazone HCl 15 MG Piogli tazone HCl 15 MG 10/07/2020 12:00:00 AM EDT 1.0 {tablet} suspende d Pioglitazone HCl 15 MG eCW1 ([facility]) pioglitazone 15 MG Oral Tablet Pioglitazone HCl 15 MG Piogli tazone HCl 15 MG 10/07/2020 12:00:00 AM EDT 1.0 {tablet} active Pioglitazone HCl 15 MG eCW1 ([facility]) pioglitazone 15 MG Oral Tablet Pioglitazone HCl 15 MG Piogli tazone HCl 15 MG 10/07/2020 12:00:00 AM EDT 1.0 {tablet} suspended eCW1 ([facility]) pioglitazone 15 MG Oral Tablet Pioglitazone HCl 15 MG Piogli tazone HCl 15 MG 10/07/2020 12:00:00 AM EDT 1.0 {tablet} suspende d Pioglitazone HCl 15 MG eCW1 ([facility]) pioglitazone 15 MG Oral Tablet Pioglitazone HCl 15 MG Piogli tazone HCl 15 MG 10/07/2020 12:00:00 AM EDT 1.0 {tablet} suspende d Pioglitazone HCl 15 MG eCW1 ([facility]) pioglitazone 15 MG Oral Tablet Pioglitazone HCl 15 MG Piogli tazone HCl 15 MG 10/07/2020 12:00:00 AM EDT 1.0 {tablet} suspended eCW1 ([facility]) pioglitazone 15 MG Oral Tablet Pioglitazone HCl 15 MG Piogli tazone HCl 15 MG 10/07/2020 12:00:00 AM EDT 1.0 {tablet} suspende d Pioglitazone HCl 15 MG eCW1 ([facility]) pioglitazone 15 MG Oral Tablet Pioglitazone HCl 15 MG Piogli tazone HCl 15 MG 10/07/2020 12:00:00 AM EDT 1.0 {tablet} suspende d Pioglitazone HCl 15 MG eCW1 ([facility]) sitagliptin 25 MG Oral Tablet [Januvia] Januvia 25 MG Januvi a 25 MG 10/04/2020 12:00:00 AM EDT suspended Januv ia 25 MG eCW1 ([facility]) sitagliptin 25 MG Oral Tablet [Januvia] Januvia 25 MG Januvi a 25 MG 10/04/2020 12:00:00 AM EDT suspended Januv ia 25 MG eCW1 ([facility]) sitagliptin 25 MG Oral Tablet [Januvia] Januvia 25 MG Januvi a 25 MG 10/04/2020 12:00:00 AM EDT suspended Januv ia 25 MG eCW1 ([facility]) sitagliptin 25 MG Oral Tablet [Januvia] Januvia 25 MG Januvi a 25 MG 10/04/2020 12:00:00 AM EDT suspended eCW1 ([facility]) sitagliptin 25 MG Oral Tablet [Januvia] Januvia 25 MG Januvi a 25 MG 10/04/2020 12:00:00 AM EDT active Januvia 25 MG eCW1 ([facility]) sitagliptin 25 MG Oral Tablet [Januvia] Januvia 25 MG Januvi a 25 MG 10/04/2020 12:00:00 AM EDT active Januvia 25 MG eCW1 ([facility]) sitagliptin 25 MG Oral Tablet [Januvia] Januvia 25 MG Januvi a 25 MG 10/04/2020 12:00:00 AM EDT suspended Januv ia 25 MG eCW1 ([facility]) sitagliptin 25 MG Oral Tablet [Januvia] Januvia 25 MG Januvi a 25 MG 10/04/2020 12:00:00 AM EDT suspended Januv ia 25 MG eCW1 ([facility]) sitagliptin 25 MG Oral Tablet [Januvia] Januvia 25 MG Januvi a 25 MG 10/04/2020 12:00:00 AM EDT suspended Januv ia 25 MG eCW1 ([facility]) sitagliptin 25 MG Oral Tablet [Januvia] Januvia 25 MG Januvi a 25 MG 10/04/2020 12:00:00 AM EDT suspended eCW1 ([facility]) sitagliptin 25 MG Oral Tablet [Januvia] Januvia 25 MG Januvi a 25 MG 10/04/2020 12:00:00 AM EDT suspended Januv ia 25 MG eCW1 ([facility]) sitagliptin 25 MG Oral Tablet [Januvia] Januvia 25 MG Januvi a 25 MG 10/04/2020 12:00:00 AM EDT active Januvia 25 MG eCW1 ([facility]) Glucometer UNK 09/27/2020 12:00:00 AM EDT suspend ed Glucometer eCW1 ([facility]) Glucometer UNK 09/27/2020 12:00:00 AM EDT active Glucometer eCW1 ([facility]) Glucometer UNK 09/27/2020 12:00:00 AM EDT suspend ed Glucometer eCW1 ([facility]) Test Strips - UNK 09/27/2020 12:00:00 AM EDT acti ve Test Strips - eCW1 ([facility]) Ergocalciferol 92959 UNT Oral Capsule Ergocalciferol 1 .25 MG (32888 UT) Ergocalciferol 1.25 MG (91759 UT) 09/27/2020 12:00:00 AM EDT 1.0 {c apsule} active Ergocalciferol 1.25 MG (5 0000 UT) eCW1 ([facility]) Lancets - Lancets - 09/27/2020 12:00:00 AM EDT suspended Lancets - eCW1 ([facility]) Lancets - Lancets - 09/27/2020 12:00:00 AM EDT eleno pended eCW1 ([facility]) Ergocalciferol 73651 UNT Oral Capsule Ergocalciferol 1 .25 MG (57790 UT) Ergocalciferol 1.25 MG (03326 UT) 09/27/2020 12:00:00 AM EDT 1.0 {c apsule} suspended eCW1 ([facility]) Glucometer UNK 09/27/2020 12:00:00 AM EDT suspend ed eCW1 ([facility]) Lancets - Lancets - 09/27/2020 12:00:00 AM EDT suspended Lancets - eCW1 ([facility]) Glucometer UNK 09/27/2020 12:00:00 AM EDT suspend ed Glucometer eCW1 ([facility]) Lancets - Lancets - 09/27/2020 12:00:00 AM EDT suspended Lancets - eCW1 ([facility]) Ergocalciferol 52032 UNT Oral Capsule Ergocalciferol 1 .25 MG (01675 UT) Ergocalciferol 1.25 MG (69418 UT) 09/27/2020 12:00:00 AM EDT 1.0 {c apsule} active Ergocalciferol 1.25 MG (5 0000 UT) eCW1 ([facility]) Lancets - Lancets - 09/27/2020 12:00:00 AM EDT act kary Lancets - eCW1 ([facility]) Test Strips - UNK 09/27/2020 12:00:00 AM EDT suspended Test Strips - eCW1 ([facility]) Lancets - Lancets - 09/27/2020 12:00:00 AM EDT act kary Lancets - eCW1 ([facility]) Lancets - Lancets - 09/27/2020 12:00:00 AM EDT suspended Lancets - eCW1 ([facility]) Test Strips - UNK 09/27/2020 12:00:00 AM EDT acti ve Test Strips - eCW1 ([facility]) Glucometer UNK 09/27/2020 12:00:00 AM EDT suspend ed Glucometer eCW1 ([facility]) Lancets - Lancets - 09/27/2020 12:00:00 AM EDT suspended Lancets - eCW1 ([facility]) Lancets - Lancets - 09/27/2020 12:00:00 AM EDT suspended Lancets - eCW1 ([facility]) Glucometer UNK 09/27/2020 12:00:00 AM EDT suspend ed Glucometer eCW1 ([facility]) Test Strips - UNK 09/27/2020 12:00:00 AM EDT suspended Test Strips - eCW1 ([facility]) Lancets - Lancets - 09/27/2020 12:00:00 AM EDT suspended Lancets - eCW1 ([facility]) Ergocalciferol 46927 UNT Oral Capsule Ergocalciferol 1 .25 MG (92464 UT) Ergocalciferol 1.25 MG (61663 UT) 09/27/2020 12:00:00 AM EDT 1.0 {c apsule} suspended Ergocalciferol 1.25 MG (5 0000 UT) eCW1 ([facility]) Lancets - Lancets - 09/27/2020 12:00:00 AM EDT eleno pended eCW1 ([facility]) Glucometer UNK 09/27/2020 12:00:00 AM EDT suspend ed Glucometer eCW1 ([facility]) Test Strips - UNK 09/27/2020 12:00:00 AM EDT acti ve Test Strips - eCW1 ([facility]) Test Strips - UNK 09/27/2020 12:00:00 AM EDT suspended Test Strips - eCW1 ([facility]) Lancets - Lancets - 09/27/2020 12:00:00 AM EDT act kary Lancets - eCW1 ([facility]) Glucometer UNK 09/27/2020 12:00:00 AM EDT active Glucometer eCW1 ([facility]) Ergocalciferol 03724 UNT Oral Capsule Ergocalciferol 1 .25 MG (76045 UT) Ergocalciferol 1.25 MG (67355 UT) 09/27/2020 12:00:00 AM EDT 1.0 {c apsule} suspended Ergocalciferol 1.25 MG (5 0000 UT) eCW1 ([facility]) Test Strips - UNK 09/27/2020 12:00:00 AM EDT suspended Test Strips - eCW1 ([facility]) Test Strips - UNK 09/27/2020 12:00:00 AM EDT suspended Test Strips - eCW1 ([facility]) Glucometer UNK 09/27/2020 12:00:00 AM EDT active Glucometer eCW1 ([facility]) Test Strips - UNK 09/27/2020 12:00:00 AM EDT suspended Test Strips - eCW1 ([facility]) Glucometer UNK 09/27/2020 12:00:00 AM EDT suspend ed eCW1 ([facility]) Ergocalciferol 60441 UNT Oral Capsule Ergocalciferol 1 .25 MG (10142 UT) Ergocalciferol 1.25 MG (51401 UT) 09/27/2020 12:00:00 AM EDT 1.0 {c apsule} active Ergocalciferol 1.25 MG (5 0000 UT) eCW1 ([facility]) Test Strips - UNK 09/27/2020 12:00:00 AM EDT susp ended eCW1 ([facility]) Glucometer UNK 09/27/2020 12:00:00 AM EDT suspend ed Glucometer eCW1 ([facility]) Test Strips - UNK 09/27/2020 12:00:00 AM EDT susp ended eCW1 ([facility]) Test Strips - UNK 09/27/2020 12:00:00 AM EDT suspended Test Strips - eCW1 ([facility]) Sertraline 100 MG Oral Tablet [Zoloft] Zoloft 100 MG Zoloft 100 MG 08/23/2020 12:00:00 AM EST active Zoloft 1 00 MG eCW1 ([facility]) olopatadine 2 MG/ML Ophthalmic Solution Olopatadine HC l 0.2 % Olopatadine HCl 0.2 % 08/23/2020 12:00:00 AM EST 1.0 {drop_into_affected_eye} suspended Olopatadine HCl 0.2 % eCW1 ([facility]) Sertraline 100 MG Oral Tablet [Zoloft] Zoloft 100 MG Zoloft 100 MG 08/23/2020 12:00:00 AM EST 1.0 {tablet} active eCW1 ([facility]) olopatadine 2 MG/ML Ophthalmic Solution Olopatadine HC l 0.2 % Olopatadine HCl 0.2 % 08/23/2020 12:00:00 AM EST 1.0 {drop_into_affected_eye} suspended Olopatadine HCl 0.2 % eCW1 ([facility]) olopatadine 2 MG/ML Ophthalmic Solution Olopatadine HC l 0.2 % Olopatadine HCl 0.2 % 08/23/2020 12:00:00 AM EST 1.0 {drop_into_affected_eye} active Olopatadine HCl 0.2 % eCW1 ([facility]) olopatadine 2 MG/ML Ophthalmic Solution Olopatadine HC l 0.2 % Olopatadine HCl 0.2 % 08/23/2020 12:00:00 AM EST 1.0 {drop_into_affected_eye} suspended Olopatadine HCl 0.2 % eCW1 ([facility]) Sertraline 50 MG Oral Tablet [Zoloft] Zoloft 50 MG Zoloft 50 MG 08/23/2020 12:00:00 AM EST 1.0 {tablet} active Zo loft 50 MG eCW1 ([facility]) olopatadine 2 MG/ML Ophthalmic Solution Olopatadine HC l 0.2 % Olopatadine HCl 0.2 % 08/23/2020 12:00:00 AM EST 1.0 {drop_into_affected_eye} suspended eCW1 ([facility]) Sertraline 50 MG Oral Tablet [Zoloft] Zoloft 50 MG Zoloft 50 MG 08/23/2020 12:00:00 AM EST 1.0 {tablet} active Zo loft 50 MG eCW1 ([facility]) olopatadine 2 MG/ML Ophthalmic Solution Olopatadine HC l 0.2 % Olopatadine HCl 0.2 % 08/23/2020 12:00:00 AM EST 1.0 {drop_into_affected_eye} suspended Olopatadine HCl 0.2 % eCW1 ([facility]) Sertraline 50 MG Oral Tablet [Zoloft] Zoloft 50 MG Zoloft 50 MG 08/23/2020 12:00:00 AM EST 1.0 {tablet} active Zo loft 50 MG eCW1 ([facility]) olopatadine 2 MG/ML Ophthalmic Solution Olopatadine HC l 0.2 % Olopatadine HCl 0.2 % 08/23/2020 12:00:00 AM EST 1.0 {drop_into_affected_eye} suspended Olopatadine HCl 0.2 % eCW1 ([facility]) Sertraline 100 MG Oral Tablet [Zoloft] Zoloft 100 MG Zoloft 100 MG 08/23/2020 12:00:00 AM EST 1.0 {tablet} active Zo loft 100 MG eCW1 ([facility]) Losartan Potassium 50 MG Oral Tablet Losartan Potassium 50 M G 08/23/2020 12:00:00 AM EST 1.0 {tablet} active Lo sartan Potassium 50 MG eCW1 ([facility]) Sertraline 100 MG Oral Tablet [Zoloft] Zoloft 100 MG Zoloft 100 MG 08/23/2020 12:00:00 AM EST active Zoloft 1 00 MG eCW1 ([facility]) Losartan Potassium 50 MG Oral Tablet Losartan Potassium 50 M G 08/23/2020 12:00:00 AM EST 1.0 {tablet} active Lo sartan Potassium 50 MG eCW1 ([facility]) Sertraline 50 MG Oral Tablet [Zoloft] Zoloft 50 MG Zoloft 50 MG 08/23/2020 12:00:00 AM EST 1.0 {tablet} active Zo loft 50 MG eCW1 ([facility]) olopatadine 2 MG/ML Ophthalmic Solution Olopatadine HC l 0.2 % Olopatadine HCl 0.2 % 08/23/2020 12:00:00 AM EST 1.0 {drop_into_affected_eye} suspended eCW1 ([facility]) Sertraline 50 MG Oral Tablet [Zoloft] Zoloft 50 MG Zoloft 50 MG 08/23/2020 12:00:00 AM EST 1.0 {tablet} active Zo loft 50 MG eCW1 ([facility]) Sertraline 50 MG Oral Tablet [Zoloft] Zoloft 50 MG Zoloft 50 MG 08/23/2020 12:00:00 AM EST 1.0 {tablet} active Zo loft 50 MG eCW1 ([facility]) Losartan Potassium 50 MG Oral Tablet Losartan Potassium 50 M G 08/23/2020 12:00:00 AM EST 1.0 {tablet} active Lo sartan Potassium 50 MG eCW1 ([facility]) Losartan Potassium 50 MG Oral Tablet Losartan Potassium 50 M G 08/23/2020 12:00:00 AM EST 1.0 {tablet} active Lo sartan Potassium 50 MG eCW1 ([facility]) Sertraline 100 MG Oral Tablet [Zoloft] Zoloft 100 MG Zoloft 100 MG 08/23/2020 12:00:00 AM EST 1.0 {tablet} active Zo loft 100 MG eCW1 ([facility]) Losartan Potassium 50 MG Oral Tablet Losartan Potassium 50 M G 08/23/2020 12:00:00 AM EST 1.0 {tablet} active Lo sartan Potassium 50 MG eCW1 ([facility]) Losartan Potassium 50 MG Oral Tablet Losartan Potassium 50 M G 08/23/2020 12:00:00 AM EST 1.0 {tablet} active Lo sartan Potassium 50 MG eCW1 ([facility]) Losartan Potassium 50 MG Oral Tablet Losartan Potassium 50 M G 08/23/2020 12:00:00 AM EST 1.0 {tablet} active Lo sartan Potassium 50 MG eCW1 ([facility]) olopatadine 2 MG/ML Ophthalmic Solution Olopatadine HC l 0.2 % Olopatadine HCl 0.2 % 08/23/2020 12:00:00 AM EST 1.0 {drop_into_affected_eye} suspended Olopatadine HCl 0.2 % eCW1 ([facility]) olopatadine 2 MG/ML Ophthalmic Solution Olopatadine HC l 0.2 % Olopatadine HCl 0.2 % 08/23/2020 12:00:00 AM EST 1.0 {drop_into_affected_eye} suspended Olopatadine HCl 0.2 % eCW1 ([facility]) Sertraline 100 MG Oral Tablet [Zoloft] Zoloft 100 MG Zoloft 100 MG 08/23/2020 12:00:00 AM EST 1.0 {tablet} active Zo loft 100 MG eCW1 ([facility]) Sertraline 50 MG Oral Tablet [Zoloft] Zoloft 50 MG Zoloft 50 MG 08/23/2020 12:00:00 AM EST 1.0 {tablet} active eCW1 ([facility]) olopatadine 2 MG/ML Ophthalmic Solution Olopatadine HC l 0.2 % Olopatadine HCl 0.2 % 08/23/2020 12:00:00 AM EST 1.0 {drop_into_affected_eye} active Olopatadine HCl 0.2 % eCW1 ([facility]) Losartan Potassium 50 MG Oral Tablet Losartan Potassium 50 M G 08/23/2020 12:00:00 AM EST 1.0 {tablet} active Lo sartan Potassium 50 MG eCW1 ([facility]) Losartan Potassium 50 MG Oral Tablet Losartan Potassium 50 M G 08/23/2020 12:00:00 AM EST 1.0 {tablet} active Lo sartan Potassium 50 MG eCW1 ([facility]) Losartan Potassium 50 MG Oral Tablet Losartan Potassium 50 M G 08/23/2020 12:00:00 AM EST 1.0 {tablet} active Lo sartan Potassium 50 MG eCW1 ([facility]) olopatadine 2 MG/ML Ophthalmic Solution Olopatadine HC l 0.2 % Olopatadine HCl 0.2 % 08/23/2020 12:00:00 AM EST 1.0 {drop_into_affected_eye} suspended Olopatadine HCl 0.2 % eCW1 ([facility]) Losartan Potassium 50 MG Oral Tablet Losartan Potassium 50 M G 08/23/2020 12:00:00 AM EST 1.0 {tablet} active Lo sartan Potassium 50 MG eCW1 ([facility]) Losartan Potassium 50 MG Oral Tablet Losartan Potassium 50 M G 08/23/2020 12:00:00 AM EST 1.0 {tablet} active eCW1 ([facility]) Losartan Potassium 50 MG Oral Tablet Losartan Potassium 50 M G 08/23/2020 12:00:00 AM EST 1.0 {tablet} active eCW1 ([facility]) olopatadine 2 MG/ML Ophthalmic Solution Olopatadine HC l 0.2 % Olopatadine HCl 0.2 % 08/23/2020 12:00:00 AM EST 1.0 {drop_into_affected_eye} suspended Olopatadine HCl 0.2 % eCW1 ([facility]) olopatadine 2 MG/ML Ophthalmic Solution Olopatadine HC l 0.2 % Olopatadine HCl 0.2 % 08/23/2020 12:00:00 AM EST 1.0 {drop_into_affected_eye} suspended Olopatadine HCl 0.2 % eCW1 ([facility]) Sertraline 50 MG Oral Tablet [Zoloft] Zoloft 50 MG Zoloft 50 MG 08/23/2020 12:00:00 AM EST 1.0 {tablet} active Zo loft 50 MG eCW1 ([facility]) Losartan Potassium 50 MG Oral Tablet Losartan Potassium 50 M G 08/23/2020 12:00:00 AM EST 1.0 {tablet} active Lo sartan Potassium 50 MG eCW1 ([facility]) Insurance Providers Payer name Policy type / Coverage type Policy ID Covered democrat ID Covered democrat's relationship to geiger Policy Geiger Plan Information DILCIA [id number] [place] [id number] MVP Medicaid Health Maintenance Organization (O) [id number] Self [id number] MVP [id number] ANSI-Commercial [id number] ANSI-Medicaid [id number] ANSI-Not a Secondary Insurance [id number] ANSI-Medicaid [id number] ANSI-Commercial [id number] ANSI-Medicaid [id number] SELF PAY ONLY [id number] SP [id number] MVP MCDHMO [id number] SP [id number] MVP MCDHMO [id number] SP [id number] DILCIA [id number] SP [id number] MVP MCDHMO [id number] SP [id number] MVP Commercial [id number] Self [id number] ANSI-Commercial [id number] ANSI-Not a Secondary Insurance [id number] ANSI-Medicaid [id number] ANSI-Medicaid [id number] ANSI-Not a Secondary Insurance [id number] ANSI-Commercial [id number] ANSI-Medicaid [id number] ANSI-Medicaid [id number] ANSI-Medicaid [id number] ANSI-Medicaid [id number] ANSI-Commercial [id number] ANSI-Not a Secondary Insurance [id number] ANSI-Not a Secondary Insurance [id number] ANSI-Commercial [id number] ANSI-Medicaid [id number] ANSI-Medicaid [id number] ANSI-Not a Secondary Insurance [id number] ANSI-Commercial [id number] ANSI-Medicaid [id number] ANSI-Medicaid [id number] [facility] Commercial [id number] Self [id number] [facility] O [id number] S [id number] [facility] Commercial [id number] Self [id number] [facility] Commercial [id number] .[id number] Self [id number] [facility] MEDICAID HMO -O/P [id number] 18 [id number] MEDICAID [id number] SP [id number] [facility] [id number] SP [id number] [facility] [id number] SP [id number] [facility] Commercial [id number] Self [id number] [facility] Commercial [id number] .0 Self [id number] SELF PAY ONLY UNAVAILABLE SP UNAV AILABLE [place]ILCIA CARE [place] O [id number] S [id number] SELF PAY UNAVAILABLE SP UNAVAILA BLE [facility] [id number] SP [id number] [facility] [id number] SP [id number] ANSI-Medicaid [id number] ANSI-Not a Secondary Insurance [id number] Problems, Conditions, and Diagnoses Code Display Name Description Problem Type Effective Dates Data Source(s) Z68.32 226062084 Adult BMI 32.0-32.9 kg/sq m Problem 02/20/20 12:00:00 AM EDT eCW1 ([facility]) N93.9 [id number] Abnormal uterine bleeding Problem 10/26/2020 12:00:00 AM EDT eCW1 ([facility]) N97.0 [id number] Infertility associated with anovulation P roblem 10/26/2020 12:00:00 AM EDT eCW1 ([facility]) E78.1 [id number] Hypertriglyceridemia Problem 09/27/2020 12:0 0:00 AM EDT eCW1 ([facility]) E11.9 [id number] Type 2 diabetes kei itus without complication, without long-term current use of insulin Problem 09/27/2020 12:00:00 AM EDT eCW1 ([facility]) E55.9 [id number] Vitamin D deficiency Problem 09/27/2020 12:0 0:00 AM EDT eCW1 ([facility]) I11.9 Hypertensive heart disease without conge stive heart failure Hypertensive heart disease without heart failure Problem 08/23/2020 12:00:[address] eCW1 ([facility]) Surgeries/Procedures Procedure Description Date Indications Data Source(s) URINE TEST 12/09/2020 12:00:00 AM EDT eCW1 ([facility]) Results ID Date Data Source [id number] 05/30/2021 06:40:00 PM EST [facility] Name Value Range Interpretation Code Description Data Tressa rce(s) Supporting Document(s) SARS coronavirus 2 RNA [Presence] in Res piratory specimen by ROBERT with probe detection NEGATIVE [facility] This lab was ordered by [facility] a nd reported by [facility]. ID Date Data Source [id number] 05/30/2021 06:40:00 PM EST [facility] Name Value Range Interpretation Code Description Data Tressa rce(s) Supporting Document(s) SARS coronavirus 2 RNA [Presence] in Res piratory specimen by ROBERT with probe detection NEGATIVE [facility] This lab was ordered by [facility] a nd reported by [facility]. ID Date Data Source Basic Metabolic Profile (BMP) 01/26/2021 12:00:00 AM EDT eCW 1 ([facility]) Name Value Range Interpretation Code Description Data Tressa rce(s) Supporting Document(s) 83 70-100 GLUCOSE, FASTING eCW1 ([facility]) 16 7-18 BLOOD UREA NITROGEN eCW1 ([facility]) > 60.0 >60 GLOMERULAR FILTRATION RATE eCW 1 ([facility]) 138 136-145 SODIUM LEVEL eCW1 ([facility]) 0.54 0.55-1.30 CREATININE FOR GFR eCW1 ([facility]) 4.0 3.5-5.1 POTASSIUM SERUM eCW1 ([facility]) 105 98-107 CHLORIDE LEVEL eCW1 ([facility]) 28 21-32 CARBON DIOXIDE LEVEL eCW1 ([facility]) 8.6 8.5-10.1 CALCIUM LEVEL eCW1 ([facility]) ID Date Data Source [id number] 01/26/2021 12:00:00 AM EDT eCW1 ([facility]) Name Value Range Interpretation Code Description Data Tressa rce(s) Supporting Document(s) Hemoglobin A1c/Hemoglobin.total in Blood 5.4 HEMOGLOBIN A1c eCW1 ([facility]) ID Date Data Source [id number] 07/15/2020 12:00:00 AM EST [facility] Name Value Range Interpretation Code Description Data Tressa rce(s) Supporting Document(s) SARS coronavirus 2 RNA [Presence] in Res piratory specimen by ROBERT with probe detection NEGATIVE [facility] This lab was ordered by [facility] Cadet and reported by [facility]. ID Date Data Source [id number] 07/15/2020 12:00:00 AM EST [facility] Name Value Range Interpretation Code Description Data Tressa rce(s) Supporting Document(s) Carestart Rapid COVID Antigen Test Negative [facility] This lab was reported by Miguel wilson. Procedure Social History Code Duration Value Status Description Data Source(s ) Smoking 01/24/2021 12:00:00 AM EDT Never Smoker completed Never S moker eCW1 ([facility]) Smoking 01/24/2021 12:00:00 AM EDT Never Smoker completed Never S moker eCW1 ([facility]) Smoking 01/24/2021 12:00:00 AM EDT Never Smoker completed Never S moker eCW1 ([facility]) Smoking 01/24/2021 12:00:00 AM EDT Never Smoker completed Never S moker eCW1 ([facility]) Smoking 01/24/2021 12:00:00 AM EDT Never Smoker completed Never S moker eCW1 ([facility]) Smoking 01/24/2021 12:00:00 AM EDT Never Smoker completed Never S moker eCW1 ([facility]) Smoking 12/09/2020 12:00:00 AM EDT Never Smoker completed Never S moker eCW1 ([facility]) Smoking 10/26/2020 12:00:00 AM EDT Never Smoker completed Never S moker eCW1 ([facility]) Smoking 10/26/2020 12:00:00 AM EDT Never Smoker completed Never S moker eCW1 ([facility]) Smoking 09/27/2020 12:00:00 AM EDT Never Smoker completed Never S moker eCW1 ([facility]) Smoking 09/27/2020 12:00:00 AM EDT Never Smoker completed Never S moker eCW1 ([facility]) Smoking 09/27/2020 12:00:00 AM EDT Never Smoker completed Never S moker eCW1 ([facility]) Smoking 08/23/2020 12:00:00 AM EST Never Smoker completed Never S moker eCW1 ([facility]) Smoking 08/23/2020 12:00:00 AM EST Never Smoker completed Never S moker eCW1 ([facility]) Vital Signs ID Date Data Source UNK Name Value Range Interpretation Code Description Data Source(s) Body weight 207.8 [lb_av] 207.8 [lb_av] eCW1 ([facility]) Body height 67 [in_i] 67 [in_i] eCW1 ([facility]) Body mass index (BMI) [Ratio] 32.54 kg/m2 32.54 kg/m2 eCW1 ([facility]) Heart rate 77 /min 77 /min eCW1 ([facility]) Respiratory rate 18 /min 18 /min eCW1 ([facility]) Body temperature 97.4 [degF] 97.4 [degF] eCW1 ( [facility]) Systolic blood pressure 128 mm[Hg] 128 mm[Hg] e CW1 ([facility]) Diastolic blood pressure 78 mm[Hg] 78 mm[Hg] eCW1 ([facility]) Body weight 207 [lb_av] 207 [lb_av] eCW1 ([facility]) Body weight 93.89 kg 93.89 kg eCW1 ([facility]) Body height 67 [in_i] 67 [in_i] eCW1 ([facility]) Body mass index (BMI) [Ratio] 32.42 kg/m2 32.42 kg/m2 eCW1 ([facility]) Systolic blood pressure 140 mm[Hg] 140 mm[Hg] e CW1 ([facility]) Diastolic blood pressure 80 mm[Hg] 80 mm[Hg] eCW1 ([facility]) Body weight 219 [lb_av] 219 [lb_av] eCW1 ([facility]) Body height 67 [in_i] 67 [in_i] eCW1 ([facility]) Body mass index (BMI) [Ratio] 34.3 kg/m2 34.3 k g/m2 eCW1 ([facility]) Systolic blood pressure 122 mm[Hg] 122 mm[Hg] e CW1 ([facility]) Diastolic blood pressure 74 mm[Hg] 74 mm[Hg] eCW1 ([facility]) Body weight 238.4 [lb_av] 238.4 [lb_av] eCW1 ([facility]) Body height 67 [in_i] 67 [in_i] eCW1 ([facility]) Body mass index (BMI) [Ratio] 37.33 kg/m2 37.33 kg/m2 eCW1 ([facility]) Heart rate 96 /min 96 /min eCW1 ([facility]) Respiratory rate 18 /min 18 /min eCW1 ([facility]) Body temperature 97.9 [degF] 97.9 [degF] eCW1 ( [facility]) Systolic blood pressure 140 mm[Hg] 140 mm[Hg] e CW1 ([facility]) Diastolic blood pressure 84 mm[Hg] 84 mm[Hg] eCW1 ([facility]) Body weight 249.0 [lb_av] 249.0 [lb_av] eCW1 ([facility]) Body height 67 [in_i] 67 [in_i] eCW1 ([facility]) Body mass index (BMI) [Ratio] 38.99 kg/m2 38.99 kg/m2 eCW1 ([facility]) Heart rate 111 /min 111 /min eCW1 ([facility]) Respiratory rate 18 /min 18 /min eCW1 ([facility]) Body temperature 97.0 [degF] 97.0 [degF] eCW1 ( [facility]) Systolic blood pressure 160 mm[Hg] 160 mm[Hg] e CW1 ([facility]) Diastolic blood pressure 72 mm[Hg] 72 mm[Hg] eCW1 ([facility]) Patient Treatment Plan of Care Planned Activity Planned Date Details Description Data Source (s) Ozempic (0.25 or 0.5 MG/DOSE) 2 MG/1.5ML 01/24/2021 12:00:00 AM EDT eCW1 ([facility]) Ozempic (0.25 or 0.5 MG/DOSE) 2 MG/1.5ML 01/24/2021 12:00:00 AM EDT eCW1 ([facility]) Ozempic (0.25 or 0.5 MG/DOSE) 2 MG/1.5ML 01/24/2021 12:00:00 AM EDT eCW1 ([facility]) Ozempic (0.25 or 0.5 MG/DOSE) 2 MG/1.5ML 01/24/2021 12:00:00 AM EDT eCW1 ([facility]) Ozempic (0.25 or 0.5 MG/DOSE) 2 MG/1.5ML 01/24/2021 12:00:00 AM EDT eCW1 ([facility]) Ozempic (0.25 or 0.5 MG/DOSE) 2 MG/1.5ML 01/24/2021 12:00:00 AM EDT eCW1 ([facility]) medroxyprogesterone acetate 10 MG Oral Tablet [Provera ] 10/26/2020 12:00:00 AM EDT eCW1 ([facility]) medroxyprogesterone acetate 10 MG Oral Tablet [Provera ] 10/26/2020 12:00:00 AM EDT eCW1 ([facility]) pioglitazone 15 MG Oral Tablet 10/07/2020 12:00:00 AM EDT eCW1 ([facility]) pioglitazone 15 MG Oral Tablet 10/07/2020 12:00:00 AM EDT eCW1 ([facility]) sitagliptin 25 MG Oral Tablet [Januvia] 10/04/2020 12:00:00 AM EDT eCW1 ([facility]) sitagliptin 25 MG Oral Tablet [Januvia] 10/04/2020 12:00:00 AM EDT eCW1 ([facility]) sitagliptin 25 MG Oral Tablet [Januvia] 10/04/2020 12:00:00 AM EDT eCW1 ([facility]) Test Strips - 09/27/2020 12:00:00 AM EDT eCW1 ([facility]) Lancets - 09/27/2020 12:00:00 AM EDT e CW1 ([facility]) Glucometer 09/27/2020 12:00:00 AM EDT e CW1 ([facility]) Ergocalciferol 33784 UNT Oral Capsule 09/27/2020 12:00:00 AM EDT eCW1 ([facility]) Test Strips - 09/27/2020 12:00:00 AM EDT eCW1 ([facility]) Lancets - 09/27/2020 12:00:00 AM EDT e CW1 ([facility]) Glucometer 09/27/2020 12:00:00 AM EDT e CW1 ([facility]) Ergocalciferol [id number] UNT Oral Capsule 09/27/2020 12:00:00 AM EDT eCW1 ([facility]) Test Strips - 09/27/2020 12:00:00 AM EDT eCW1 ([facility]) Lancets - 09/27/2020 12:00:00 AM EDT e CW1 ([facility]) Glucometer 09/27/2020 12:00:00 AM EDT e CW1 ([facility]) Ergocalciferol 88708 UNT Oral Capsule 09/27/2020 12:00:00 AM EDT eCW1 ([facility]) Losartan Potassium 50 MG Oral Tablet 08/23/2020 12:00:00 AM EST eCW1 ([facility]) Sertraline 100 MG Oral Tablet [Zoloft] 08/23/2020 12:00:00 AM EST eCW1 ([facility]) Losartan Potassium 50 MG Oral Tablet 08/23/2020 12:00:00 AM EST eCW1 ([facility]) Sertraline 100 MG Oral Tablet [Zoloft] 08/23/2020 12:00:00 AM EST eCW1 ([facility]) Sertraline 100 MG Oral Tablet [Zoloft] 08/23/2020 12:00:00 AM EST eCW1 ([facility]) Losartan Potassium 50 MG Oral Tablet 08/23/2020 12:00:00 AM EST eCW1 ([facility]) Sertraline 100 MG Oral Tablet [Zoloft] 08/23/2020 12:00:00 AM EST eCW1 ([facility]) Sertraline 100 MG Oral Tablet [Zoloft] 08/23/2020 12:00:00 AM EST eCW1 ([facility]) Losartan Potassium 50 MG Oral Tablet 08/23/2020 12:00:00 AM EST eCW1 ([facility]) Sertraline 50 MG Oral Tablet [Zoloft] 08/23/2020 12:00:00 AM EST eCW1 ([facility]) olopatadine 2 MG/ML Ophthalmic Solution 08/23/2020 12:00:00 AM EST eCW1 ([facility]) Losartan Potassium 50 MG Oral Tablet 08/23/2020 12:00:00 AM EST eCW1 ([facility]) Sertraline 50 MG Oral Tablet [Zoloft] 08/23/2020 12:00:00 AM EST eCW1 ([facility]) olopatadine 2 MG/ML Ophthalmic Solution 08/23/2020 12:00:00 AM EST eCW1 ([facility]) Losartan Potassium 50 MG Oral Tablet 08/23/2020 12:00:00 AM EST eCW1 ([facility]) Sertraline 50 MG Oral Tablet [Zoloft] 08/23/2020 12:00:00 AM EST eCW1 ([facility]) Sertraline 100 MG Oral Tablet [Zoloft] 08/23/2020 12:00:00 AM EST eCW1 ([facility])
[2021-06-06] MEDS ORDERED: NS 1,000 ML IV ONE (20:20)
--- OUTSIDE RECORDS SUMMARY | 2021-06-06 20:39 | CCD ---
Author Author [facility] Address Unknown Phone Unavailable Support Name Relationship Address Phone TACO Next Of Kin [address] [place] [address] [address] Next Of Kin [address] [place] [address] [place] [address] Unavailable LEOBARDO MALDONADO Next Of Kin [address] [facility] [address] [place] [id number] GONZÁLEZ FINNEGAN Next Of Kin [address] [place] [address] GONZÁLEZ FINNEGAN [address] [address] [place] [address] Unavailable Re-disclosure Warning The records that you [...] is protected by Article 27-F of the [place] Public Health law. If you continue [...] law may result in a fine or long-term sentence or both. A general authorization for the release of medical or other information is NOT sufficient authorization for further disc losure. Family History Family Member Name Family Member Gender Family Member Status Date o f Status Description Data Source(s) Unknown Unknown Problem MEDENT ([facility]) mother's brother Unknown Unknown Problem MEDENT ([facility]) mother-dx 16yrs ago maternal grandmother Encounters Encounter Providers Location Date Indications Data Source(s ) Unknown [address] [facility] [id number] 06/02/2021 12:00:00 AM EST eCW1 ([facility]) Unknown [address] [facility] [id number] 05/29/2021 12:00:00 AM EST eCW1 ([facility]) Unknown [address] [facility] [id number] 04/24/2021 12:00:00 AM EDT eCW1 ([facility]) Unknown [address] [facility] [id number] 02/24/2021 12:00:00 AM EDT eCW1 ([facility]) Unknown [address] [facility] [id number] 01/31/2021 12:00:00 AM EDT eCW1 ([facility]) Unknown [address] [facility] [id number] 01/26/2021 12:00:00 AM EDT eCW1 ([facility]) Outpatient [address] [facility] [id number] 01/24/2021 12:00:00 AM EDT eCW1 ([facility] [place]) (WC PROC) [facility] Procedure [address] [place] [address] 12/09/2020 12:00:00 AM EDT eCW1 ([facility]) Unknown [address] [facility] [address] 11/18/2020 12:00:00 AM EDT eCW1 ([facility]) Outpatient [address] [facility] [address] 10/26/2020 12:00:00 AM EDT eCW1 ([facility]) Unknown [address] [facility] [address] 10/05/2020 12:00:00 AM EDT eCW1 ([facility]) Unknown [address] [facility] [address] 09/28/2020 12:00:00 AM EDT eCW1 ([facility]) Outpatient [address] [facility] [place] [address] 09/27/2020 12:00:00 AM EDT eCW1 ([facility]) Unknown [address] [facility] [address] 09/05/2020 12:00:00 AM EST eCW1 ([facility]) Outpatient [address] [facility] [address] 08/23/2020 12:00:00 AM EST eCW1 ([facility]) Unknown [address] [facility] [address] 07/08/2020 12:00:00 AM EST eCW1 ([facility]) Medications Medication Brand Name Start Date Product Form Dose Route Admi nistrative Instructions Pharmacy Instructions Status Indications Reaction Description Data Source(s) Sucralfate 1000 MG Oral Tablet Sucralfate 1 GM Sucralfate 1 GM 06/01/2021 12:00:00 AM EST 1.0 {tablet_on_an_empty_stomach} active Sucralfate 1 GM eCW1 ([facility]) ferrous sulfate 325 MG Oral Tablet Ferrous Sulfate 325 (65 Fe) MG Ferrous Sulfate 325 (65 Fe) MG 06/01/2021 12:00:00 AM EST 1.0 {tablet} active Ferrous Sulfate 325 (65 Fe) MG eCW1 ([facility]) Ozempic (0.25 or 0.5 MG/DOSE) 2 MG/1.5ML Ozempic (0.25 or 0.5 MG/DOSE) 2 MG/1.5ML 01/24/2021 12:00:00 AM EDT active Ozempic (0.25 or 0.5 MG/DOSE) 2 MG/1.5ML eCW1 ([facility]) Ozempic (0.25 or 0.5 MG/DOSE) 2 MG/1.5ML Ozempic (0.25 or 0.5 MG/DOSE) 2 MG/1.5ML 01/24/2021 12:00:00 AM EDT active Ozempic (0.25 or 0.5 MG/DOSE) 2 MG/1.5ML eCW1 ([facility]) Ozempic (0.25 or 0.5 MG/DOSE) 2 MG/1.5ML Ozempic (0.25 or 0.5 MG/DOSE) 2 MG/1.5ML 01/24/2021 12:00:00 AM EDT active Ozempic (0.25 or 0.5 MG/DOSE) 2 MG/1.5ML eCW1 ([facility]) Ozempic (0.25 or 0.5 MG/DOSE) 2 MG/1.5ML Ozempic (0.25 or 0.5 MG/DOSE) 2 MG/1.5ML 01/24/2021 12:00:00 AM EDT active Ozempic (0.25 or 0.5 MG/DOSE) 2 MG/1.5ML eCW1 ([facility]) Ozempic (0.25 or 0.5 MG/DOSE) 2 MG/1.5ML Ozempic (0.25 or 0.5 MG/DOSE) 2 MG/1.5ML 01/24/2021 12:00:00 AM EDT active eCW1 ([facility]) Ozempic (0.25 or 0.5 MG/DOSE) 2 MG/1.5ML Ozempic (0.25 or 0.5 MG/DOSE) 2 MG/1.5ML 01/24/2021 12:00:00 AM EDT active Ozempic (0.25 or 0.5 MG/DOSE) 2 MG/1.5ML eCW1 ([facility]) Ozempic (0.25 or 0.5 MG/DOSE) 2 MG/1.5ML Ozempic (0.25 or 0.5 MG/DOSE) 2 MG/1.5ML 01/24/2021 12:00:00 AM EDT suspended Ozempic (0.25 or 0.5 MG/DOSE) 2 MG/1.5ML eCW1 ([facility]) medroxyprogesterone acetate 10 MG Oral Tablet [Provera ] Provera 10 MG Provera 10 MG 10/26/2020 12:00:00 AM EDT 1.0 {tablet_with_food} suspended eCW1 ([facility]) medroxyprogesterone acetate 10 MG Oral Tablet [Provera ] Provera 10 MG Provera 10 MG 10/26/2020 12:00:00 AM EDT 1.0 {tablet_with_food} active eCW1 ([facility]) medroxyprogesterone acetate 10 MG Oral Tablet [Provera ] Provera 10 MG Provera 10 MG 10/26/2020 12:00:00 AM EDT 1.0 {tablet_with_food} suspended Provera 10 MG eCW1 ([facility]) medroxyprogesterone acetate 10 MG Oral Tablet [Provera ] Provera 10 MG Provera 10 MG 10/26/2020 12:00:00 AM EDT 1.0 {tablet_with_food} suspended Provera 10 MG eCW1 ([facility]) medroxyprogesterone acetate 10 MG Oral Tablet [Provera ] Provera 10 MG Provera 10 MG 10/26/2020 12:00:00 AM EDT 1.0 {tablet_with_food} suspended Provera 10 MG eCW1 ([facility]) medroxyprogesterone acetate 10 MG Oral Tablet [Provera ] Provera 10 MG Provera 10 MG 10/26/2020 12:00:00 AM EDT 1.0 {tablet_with_food} suspended Provera 10 MG eCW1 ([facility]) medroxyprogesterone acetate 10 MG Oral Tablet [Provera ] Provera 10 MG Provera 10 MG 10/26/2020 12:00:00 AM EDT 1.0 {tablet_with_food} suspended Provera 10 MG eCW1 ([facility]) medroxyprogesterone acetate 10 MG Oral Tablet [Provera ] Provera 10 MG Provera 10 MG 10/26/2020 12:00:00 AM EDT 1.0 {tablet_with_food} suspended Provera 10 MG eCW1 ([facility]) medroxyprogesterone acetate 10 MG Oral Tablet [Provera ] Provera 10 MG Provera 10 MG 10/26/2020 12:00:00 AM EDT 1.0 {tablet_with_food} suspended Provera 10 MG eCW1 ([facility]) medroxyprogesterone acetate 10 MG Oral Tablet [Provera ] Provera 10 MG Provera 10 MG 10/26/2020 12:00:00 AM EDT 1.0 {tablet_with_food} active Provera 10 MG eCW1 ([facility]) pioglitazone 15 MG Oral Tablet Pioglitazone HCl 15 MG Piogli tazone HCl 15 MG 10/07/2020 12:00:00 AM EDT 1.0 {tablet} active Pioglitazone HCl 15 MG eCW1 ([facility]) pioglitazone 15 MG Oral Tablet Pioglitazone HCl 15 MG Piogli tazone HCl 15 MG 10/07/2020 12:00:00 AM EDT 1.0 {tablet} suspende d Pioglitazone HCl 15 MG eCW1 ([facility]) pioglitazone 15 MG Oral Tablet Pioglitazone HCl 15 MG Piogli tazone HCl 15 MG 10/07/2020 12:00:00 AM EDT 1.0 {tablet} suspende d Pioglitazone HCl 15 MG eCW1 ([facility]) pioglitazone 15 MG Oral Tablet Pioglitazone HCl 15 MG Piogli tazone HCl 15 MG 10/07/2020 12:00:00 AM EDT 1.0 {tablet} suspende d Pioglitazone HCl 15 MG eCW1 ([facility]) pioglitazone 15 MG Oral Tablet Pioglitazone HCl 15 MG Piogli tazone HCl 15 MG 10/07/2020 12:00:00 AM EDT 1.0 {tablet} active Pioglitazone HCl 15 MG eCW1 ([facility]) pioglitazone 15 MG Oral Tablet Pioglitazone HCl 15 MG Piogli tazone HCl 15 MG 10/07/2020 12:00:00 AM EDT 1.0 {tablet} suspended eCW1 ([facility]) pioglitazone 15 MG Oral Tablet Pioglitazone HCl 15 MG Piogli tazone HCl 15 MG 10/07/2020 12:00:00 AM EDT 1.0 {tablet} suspende d Pioglitazone HCl 15 MG eCW1 ([facility]) pioglitazone 15 MG Oral Tablet Pioglitazone HCl 15 MG Piogli tazone HCl 15 MG 10/07/2020 12:00:00 AM EDT 1.0 {tablet} suspende d Pioglitazone HCl 15 MG eCW1 ([facility]) pioglitazone 15 MG Oral Tablet Pioglitazone HCl 15 MG Piogli tazone HCl 15 MG 10/07/2020 12:00:00 AM EDT 1.0 {tablet} suspende d Pioglitazone HCl 15 MG eCW1 ([facility]) pioglitazone 15 MG Oral Tablet Pioglitazone HCl 15 MG Piogli tazone HCl 15 MG 10/07/2020 12:00:00 AM EDT 1.0 {tablet} suspended eCW1 ([facility]) pioglitazone 15 MG Oral Tablet Pioglitazone HCl 15 MG Piogli tazone HCl 15 MG 10/07/2020 12:00:00 AM EDT 1.0 {tablet} suspende d Pioglitazone HCl 15 MG eCW1 ([facility]) pioglitazone 15 MG Oral Tablet Pioglitazone HCl 15 MG Piogli tazone HCl 15 MG 10/07/2020 12:00:00 AM EDT 1.0 {tablet} suspende d Pioglitazone HCl 15 MG eCW1 ([facility]) sitagliptin 25 MG Oral Tablet [Januvia] Januvia 25 MG Januvi a 25 MG 10/04/2020 12:00:00 AM EDT suspended Januv ia 25 MG eCW1 ([facility]) sitagliptin 25 MG Oral Tablet [Januvia] Januvia 25 MG Januvi a 25 MG 10/04/2020 12:00:00 AM EDT suspended Januv ia 25 MG eCW1 ([facility]) sitagliptin 25 MG Oral Tablet [Januvia] Januvia 25 MG Januvi a 25 MG 10/04/2020 12:00:00 AM EDT suspended Januv ia 25 MG eCW1 ([facility]) sitagliptin 25 MG Oral Tablet [Januvia] Januvia 25 MG Januvi a 25 MG 10/04/2020 12:00:00 AM EDT suspended Januv ia 25 MG eCW1 ([facility]) sitagliptin 25 MG Oral Tablet [Januvia] Januvia 25 MG Januvi a 25 MG 10/04/2020 12:00:00 AM EDT suspended eCW1 ([facility]) sitagliptin 25 MG Oral Tablet [Januvia] Januvia 25 MG Januvi a 25 MG 10/04/2020 12:00:00 AM EDT active Januvia 25 MG eCW1 ([facility]) sitagliptin 25 MG Oral Tablet [Januvia] Januvia 25 MG Januvi a 25 MG 10/04/2020 12:00:00 AM EDT active Januvia 25 MG eCW1 ([facility]) sitagliptin 25 MG Oral Tablet [Januvia] Januvia 25 MG Januvi a 25 MG 10/04/2020 12:00:00 AM EDT suspended Januv ia 25 MG eCW1 ([facility]) sitagliptin 25 MG Oral Tablet [Januvia] Januvia 25 MG Januvi a 25 MG 10/04/2020 12:00:00 AM EDT suspended Januv ia 25 MG eCW1 ([facility]) sitagliptin 25 MG Oral Tablet [Januvia] Januvia 25 MG Januvi a 25 MG 10/04/2020 12:00:00 AM EDT suspended Januv ia 25 MG eCW1 ([facility]) sitagliptin 25 MG Oral Tablet [Januvia] Januvia 25 MG Januvi a 25 MG 10/04/2020 12:00:00 AM EDT suspended eCW1 ([facility]) sitagliptin 25 MG Oral Tablet [Januvia] Januvia 25 MG Januvi a 25 MG 10/04/2020 12:00:00 AM EDT suspended Januv ia 25 MG eCW1 ([facility]) sitagliptin 25 MG Oral Tablet [Januvia] Januvia 25 MG Januvi a 25 MG 10/04/2020 12:00:00 AM EDT active Januvia 25 MG eCW1 ([facility]) Glucometer UNK 09/27/2020 12:00:00 AM EDT suspend ed Glucometer eCW1 ([facility]) Glucometer UNK 09/27/2020 12:00:00 AM EDT active Glucometer eCW1 ([facility]) Glucometer UNK 09/27/2020 12:00:00 AM EDT suspend ed Glucometer eCW1 ([facility]) Test Strips - UNK 09/27/2020 12:00:00 AM EDT acti ve Test Strips - eCW1 ([facility]) Glucometer UNK 09/27/2020 12:00:00 AM EDT suspend ed Glucometer eCW1 ([facility]) Ergocalciferol 04744 UNT Oral Capsule Ergocalciferol 1 .25 MG (50900 UT) Ergocalciferol 1.25 MG (69465 UT) 09/27/2020 12:00:00 AM EDT 1.0 {c apsule} active Ergocalciferol 1.25 MG (5 0000 UT) eCW1 ([facility]) Lancets - Lancets - 09/27/2020 12:00:00 AM EDT suspended Lancets - eCW1 ([facility]) Lancets - Lancets - 09/27/2020 12:00:00 AM EDT eleno pended eCW1 ([facility]) Ergocalciferol 01335 UNT Oral Capsule Ergocalciferol 1 .25 MG (22194 UT) Ergocalciferol 1.25 MG (45589 UT) 09/27/2020 12:00:00 AM EDT 1.0 {c apsule} suspended eCW1 ([facility]) Glucometer UNK 09/27/2020 12:00:00 AM EDT suspend ed eCW1 ([facility]) Lancets - Lancets - 09/27/2020 12:00:00 AM EDT suspended Lancets - eCW1 ([facility]) Glucometer UNK 09/27/2020 12:00:00 AM EDT suspend ed Glucometer eCW1 ([facility]) Lancets - Lancets - 09/27/2020 12:00:00 AM EDT suspended Lancets - eCW1 ([facility]) Ergocalciferol 25055 UNT Oral Capsule Ergocalciferol 1 .25 MG (89981 UT) Ergocalciferol 1.25 MG (48946 UT) 09/27/2020 12:00:00 AM EDT 1.0 {c apsule} active Ergocalciferol 1.25 MG (5 0000 UT) eCW1 ([facility]) Lancets - Lancets - 09/27/2020 12:00:00 AM EDT act kary Lancets - eCW1 ([facility]) Test Strips - UNK 09/27/2020 12:00:00 AM EDT suspended Test Strips - eCW1 ([facility]) Lancets - Lancets - 09/27/2020 12:00:00 AM EDT act kary Lancets - eCW1 ([facility]) Lancets - Lancets - 09/27/2020 12:00:00 AM EDT suspended Lancets - eCW1 ([facility]) Test Strips - UNK 09/27/2020 12:00:00 AM EDT acti ve Test Strips - eCW1 ([facility]) Glucometer UNK 09/27/2020 12:00:00 AM EDT suspend ed Glucometer eCW1 ([facility]) Lancets - Lancets - 09/27/2020 12:00:00 AM EDT suspended Lancets - eCW1 ([facility]) Lancets - Lancets - 09/27/2020 12:00:00 AM EDT suspended Lancets - eCW1 ([facility]) Glucometer UNK 09/27/2020 12:00:00 AM EDT suspend ed Glucometer eCW1 ([facility]) Test Strips - UNK 09/27/2020 12:00:00 AM EDT suspended Test Strips - eCW1 ([facility]) Lancets - Lancets - 09/27/2020 12:00:00 AM EDT suspended Lancets - eCW1 ([facility]) Lancets - Lancets - 09/27/2020 12:00:00 AM EDT suspended Lancets - eCW1 ([facility]) Ergocalciferol 44644 UNT Oral Capsule Ergocalciferol 1 .25 MG (58523 UT) Ergocalciferol 1.25 MG (29246 UT) 09/27/2020 12:00:00 AM EDT 1.0 {c apsule} suspended Ergocalciferol 1.25 MG (5 0000 UT) eCW1 ([facility]) Lancets - Lancets - 09/27/2020 12:00:00 AM EDT eleno pended eCW1 ([facility]) Glucometer UNK 09/27/2020 12:00:00 AM EDT suspend ed Glucometer eCW1 ([facility]) Test Strips - UNK 09/27/2020 12:00:00 AM EDT acti ve Test Strips - eCW1 ([facility]) Test Strips - UNK 09/27/2020 12:00:00 AM EDT suspended Test Strips - eCW1 ([facility]) Lancets - Lancets - 09/27/2020 12:00:00 AM EDT act kary Lancets - eCW1 ([facility]) Glucometer UNK 09/27/2020 12:00:00 AM EDT active Glucometer eCW1 ([facility]) Ergocalciferol 95638 UNT Oral Capsule Ergocalciferol 1 .25 MG (85611 UT) Ergocalciferol 1.25 MG (97180 UT) 09/27/2020 12:00:00 AM EDT 1.0 {c apsule} suspended Ergocalciferol 1.25 MG (5 0000 UT) eCW1 ([facility]) Test Strips - UNK 09/27/2020 12:00:00 AM EDT suspended Test Strips - eCW1 ([facility]) Test Strips - UNK 09/27/2020 12:00:00 AM EDT suspended Test Strips - eCW1 ([facility]) Test Strips - UNK 09/27/2020 12:00:00 AM EDT suspended Test Strips - eCW1 ([facility]) Glucometer UNK 09/27/2020 12:00:00 AM EDT active Glucometer eCW1 ([facility]) Test Strips - UNK 09/27/2020 12:00:00 AM EDT suspended Test Strips - eCW1 ([facility]) Glucometer UNK 09/27/2020 12:00:00 AM EDT suspend ed eCW1 ([facility]) Ergocalciferol 23774 UNT Oral Capsule Ergocalciferol 1 .25 MG (66329 UT) Ergocalciferol 1.25 MG (30557 UT) 09/27/2020 12:00:00 AM EDT 1.0 {c apsule} active Ergocalciferol 1.25 MG (5 0000 UT) eCW1 ([facility]) Test Strips - UNK 09/27/2020 12:00:00 AM EDT susp ended eCW1 ([facility]) Glucometer UNK 09/27/2020 12:00:00 AM EDT suspend ed Glucometer eCW1 ([facility]) Test Strips - UNK 09/27/2020 12:00:00 AM EDT susp ended eCW1 ([facility]) Test Strips - UNK 09/27/2020 12:00:00 AM EDT suspended Test Strips - eCW1 ([facility]) Sertraline 100 MG Oral Tablet [Zoloft] Zoloft 100 MG Zoloft 100 MG 08/23/2020 12:00:00 AM EST active Zoloft 1 00 MG eCW1 ([facility]) olopatadine 2 MG/ML Ophthalmic Solution Olopatadine HC l 0.2 % Olopatadine HCl 0.2 % 08/23/2020 12:00:00 AM EST 1.0 {drop_into_affected_eye} suspended Olopatadine HCl 0.2 % eCW1 ([facility]) Sertraline 100 MG Oral Tablet [Zoloft] Zoloft 100 MG Zoloft 100 MG 08/23/2020 12:00:00 AM EST 1.0 {tablet} active eCW1 ([facility]) olopatadine 2 MG/ML Ophthalmic Solution Olopatadine HC l 0.2 % Olopatadine HCl 0.2 % 08/23/2020 12:00:00 AM EST 1.0 {drop_into_affected_eye} suspended Olopatadine HCl 0.2 % eCW1 ([facility]) olopatadine 2 MG/ML Ophthalmic Solution Olopatadine HC l 0.2 % Olopatadine HCl 0.2 % 08/23/2020 12:00:00 AM EST 1.0 {drop_into_affected_eye} active Olopatadine HCl 0.2 % eCW1 ([facility]) olopatadine 2 MG/ML Ophthalmic Solution Olopatadine HC l 0.2 % Olopatadine HCl 0.2 % 08/23/2020 12:00:00 AM EST 1.0 {drop_into_affected_eye} suspended Olopatadine HCl 0.2 % eCW1 ([facility]) Sertraline 50 MG Oral Tablet [Zoloft] Zoloft 50 MG Zoloft 50 MG 08/23/2020 12:00:00 AM EST 1.0 {tablet} active Zo loft 50 MG eCW1 ([facility]) olopatadine 2 MG/ML Ophthalmic Solution Olopatadine HC l 0.2 % Olopatadine HCl 0.2 % 08/23/2020 12:00:00 AM EST 1.0 {drop_into_affected_eye} suspended [facility] Sertraline 50 MG Oral Tablet [Zoloft] Zoloft 50 MG Zoloft 50 MG 08/23/2020 12:00:00 AM EST 1.0 {tablet} active Zo loft 50 MG eCW1 ([facility]) olopatadine 2 MG/ML Ophthalmic Solution Olopatadine HC l 0.2 % Olopatadine HCl 0.2 % 08/23/2020 12:00:00 AM EST 1.0 {drop_into_affected_eye} suspended Olopatadine HCl 0.2 % eCW1 ([facility]) Sertraline 50 MG Oral Tablet [Zoloft] Zoloft 50 MG Zoloft 50 MG 08/23/2020 12:00:00 AM EST 1.0 {tablet} active Zo loft 50 MG eCW1 ([facility]) Losartan Potassium 50 MG Oral Tablet Losartan Potassium 50 M G 08/23/2020 12:00:00 AM EST 1.0 {tablet} active Lo sartan Potassium 50 MG eCW1 ([facility]) Sertraline 100 MG Oral Tablet [Zoloft] Zoloft 100 MG Zoloft 100 MG 08/23/2020 12:00:00 AM EST active Zoloft 1 00 MG eCW1 ([facility]) olopatadine 2 MG/ML Ophthalmic Solution Olopatadine HC l 0.2 % Olopatadine HCl 0.2 % 08/23/2020 12:00:00 AM EST 1.0 {drop_into_affected_eye} suspended Olopatadine HCl 0.2 % eCW1 ([facility]) Sertraline 100 MG Oral Tablet [Zoloft] Zoloft 100 MG Zoloft 100 MG 08/23/2020 12:00:00 AM EST 1.0 {tablet} active Zo loft 100 MG eCW1 ([facility]) Losartan Potassium 50 MG Oral Tablet Losartan Potassium 50 M G 08/23/2020 12:00:00 AM EST 1.0 {tablet} active Lo sartan Potassium 50 MG eCW1 ([facility]) Sertraline 100 MG Oral Tablet [Zoloft] Zoloft 100 MG Zoloft 100 MG 08/23/2020 12:00:00 AM EST active Zoloft 1 00 MG eCW1 ([facility]) Losartan Potassium 50 MG Oral Tablet Losartan Potassium 50 M G 08/23/2020 12:00:00 AM EST 1.0 {tablet} active Lo sartan Potassium 50 MG eCW1 ([facility]) Sertraline 50 MG Oral Tablet [Zoloft] Zoloft 50 MG Zoloft 50 MG 08/23/2020 12:00:00 AM EST 1.0 {tablet} active Zo loft 50 MG eCW1 ([facility]) olopatadine 2 MG/ML Ophthalmic Solution Olopatadine HC l 0.2 % Olopatadine HCl 0.2 % 08/23/2020 12:00:00 AM EST 1.0 {drop_into_affected_eye} suspended [facility]CW[facility] Sertraline 50 MG Oral Tablet [Zoloft] Zoloft 50 MG Zoloft 50 MG 08/23/2020 12:00:00 AM EST 1.0 {tablet} active Zo loft 50 MG eCW1 ([facility]) Sertraline 50 MG Oral Tablet [Zoloft] Zoloft 50 MG Zoloft 50 MG 08/23/2020 12:00:00 AM EST 1.0 {tablet} active Zo loft 50 MG eCW1 ([facility]) Losartan Potassium 50 MG Oral Tablet Losartan Potassium 50 M G 08/23/2020 12:00:00 AM EST 1.0 {tablet} active Lo sartan Potassium 50 MG eCW1 ([facility]) Losartan Potassium 50 MG Oral Tablet Losartan Potassium 50 M G 08/23/2020 12:00:00 AM EST 1.0 {tablet} active Lo sartan Potassium 50 MG eCW1 ([facility]) Sertraline 100 MG Oral Tablet [Zoloft] Zoloft 100 MG Zoloft 100 MG 08/23/2020 12:00:00 AM EST 1.0 {tablet} active Zo loft 100 MG eCW1 ([facility]) Losartan Potassium 50 MG Oral Tablet Losartan Potassium 50 M G 08/23/2020 12:00:00 AM EST 1.0 {tablet} active Lo sartan Potassium 50 MG eCW1 ([facility]) Losartan Potassium 50 MG Oral Tablet Losartan Potassium 50 M G 08/23/2020 12:00:00 AM EST 1.0 {tablet} active Lo sartan Potassium 50 MG eCW1 ([facility]) Losartan Potassium 50 MG Oral Tablet Losartan Potassium 50 M G 08/23/2020 12:00:00 AM EST 1.0 {tablet} active Lo sartan Potassium 50 MG eCW1 ([facility]) olopatadine 2 MG/ML Ophthalmic Solution Olopatadine HC l 0.2 % Olopatadine HCl 0.2 % 08/23/2020 12:00:00 AM EST 1.0 {drop_into_affected_eye} suspended Olopatadine HCl 0.2 % eCW1 ([facility]) olopatadine 2 MG/ML Ophthalmic Solution Olopatadine HC l 0.2 % Olopatadine HCl 0.2 % 08/23/2020 12:00:00 AM EST 1.0 {drop_into_affected_eye} suspended Olopatadine HCl 0.2 % eCW1 ([facility]) Sertraline 100 MG Oral Tablet [Zoloft] Zoloft 100 MG Zoloft 100 MG 08/23/2020 12:00:00 AM EST 1.0 {tablet} active Zo loft 100 MG eCW1 ([facility]) Sertraline 50 MG Oral Tablet [Zoloft] Zoloft 50 MG Zoloft 50 MG 08/23/2020 12:00:00 AM EST 1.0 {tablet} active eCW1 ([facility]) olopatadine 2 MG/ML Ophthalmic Solution Olopatadine HC l 0.2 % Olopatadine HCl 0.2 % 08/23/2020 12:00:00 AM EST 1.0 {drop_into_affected_eye} active Olopatadine HCl 0.2 % eCW1 ([facility]) Losartan Potassium 50 MG Oral Tablet Losartan Potassium 50 M G 08/23/2020 12:00:00 AM EST 1.0 {tablet} active Lo sartan Potassium 50 MG eCW1 ([facility]) Losartan Potassium 50 MG Oral Tablet Losartan Potassium 50 M G 08/23/2020 12:00:00 AM EST 1.0 {tablet} active Lo sartan Potassium 50 MG eCW1 ([facility]) olopatadine 2 MG/ML Ophthalmic Solution Olopatadine HC l 0.2 % Olopatadine HCl 0.2 % 08/23/2020 12:00:00 AM EST 1.0 {drop_into_affected_eye} suspended Olopatadine HCl 0.2 % eCW1 ([facility]) Losartan Potassium 50 MG Oral Tablet Losartan Potassium 50 M G 08/23/2020 12:00:00 AM EST 1.0 {tablet} active Lo sartan Potassium 50 MG eCW1 ([facility]) olopatadine 2 MG/ML Ophthalmic Solution Olopatadine HC l 0.2 % Olopatadine HCl 0.2 % 08/23/2020 12:00:00 AM EST 1.0 {drop_into_affected_eye} suspended Olopatadine HCl 0.2 % eCW1 ([facility]) Losartan Potassium 50 MG Oral Tablet Losartan Potassium 50 M G 08/23/2020 12:00:00 AM EST 1.0 {tablet} active Lo sartan Potassium 50 MG eCW1 ([facility]) Losartan Potassium 50 MG Oral Tablet Losartan Potassium 50 M G 08/23/2020 12:00:00 AM EST 1.0 {tablet} active eCW1 ([facility]) Losartan Potassium 50 MG Oral Tablet Losartan Potassium 50 M G 08/23/2020 12:00:00 AM EST 1.0 {tablet} active eCW1 ([facility]) olopatadine 2 MG/ML Ophthalmic Solution Olopatadine HC l 0.2 % Olopatadine HCl 0.2 % 08/23/2020 12:00:00 AM EST 1.0 {drop_into_affected_eye} suspended Olopatadine HCl 0.2 % eCW1 ([facility]) olopatadine 2 MG/ML Ophthalmic Solution Olopatadine HC l 0.2 % Olopatadine HCl 0.2 % 08/23/2020 12:00:00 AM EST 1.0 {drop_into_affected_eye} suspended Olopatadine HCl 0.2 % eCW1 ([facility]) Sertraline 50 MG Oral Tablet [Zoloft] Zoloft 50 MG Zoloft 50 MG 08/23/2020 12:00:00 AM EST 1.0 {tablet} active Zo loft 50 MG eCW1 ([facility]) Losartan Potassium 50 MG Oral Tablet Losartan Potassium 50 M G 08/23/2020 12:00:00 AM EST 1.0 {tablet} active Lo sartan Potassium 50 MG eCW1 ([facility]) Insurance Providers Payer name Policy type / Coverage type Policy ID Covered alliance party ID Covered alliance party's relationship to egiger Policy Geiger Plan Information [facility] [id number] SP [id number] [place]ID [place] [id number] SP [id number] MVP Medicaid Health Maintenance Organization (O) [id number] [facility] [id number] [facility] [id number] SP [id number] ANSI-Commercial [id number] ANSI-Medicaid [id number] ANSI-Not a Secondary Insurance [id number] ANSI-Medicaid [id number] ANSI-Commercial [id number] ANSI-Medicaid [id number] SELF PAY ONLY [id number] SP [id number] MVP MCDHMO [id number] SP [id number] MVP MCDHMO [id number] SP [id number] DILCIA [id number] SP [id number] MVP MCDHMO [id number] SP [id number] MVP Commercial [id number] Self [id number] ANSI-Commercial [id number] ANSI-Not a Secondary Insurance [id number] ANSI-Medicaid [id number] ANSI-Medicaid [id number] ANSI-Not a Secondary Insurance [id number] ANSI-Commercial [id number] ANSI-Medicaid [id number] ANSI-Medicaid [id number] ANSI-Medicaid [id number] ANSI-Medicaid [id number] ANSI-Commercial [id number] ANSI-Not a Secondary Insurance [id number] ANSI-Not a Secondary Insurance [id number] ANSI-Commercial [id number] ANSI-Medicaid [id number] ANSI-Medicaid [id number] ANSI-Not a Secondary Insurance [id number] ANSI-Commercial [id number] [facility]-Medicaid [id number] ANS-Medicaid [id number] [facility] Commercial [id number] Self [id number] [facility] HEALTH CARE O [id number] S [id number] [facility] Commercial [id number] Self [id number] [facility] Commercial [id number] Self [id number] [facility] MEDICAID HMO -O/P [id number] 18 [id number] MEDICAID [id number] SP [id number] [facility] HEALTH CARE [id number] SP [id number] [facility]ARE [id number] SP [id number] [facility] Commercial [id number] Self [id number] [facility] Commercial [id number] Self [id number] SELF PAY ONLY UNAVAILABLE SP UNA[place] AILABLE [place] [id number] S [id number] SELF PAY UNAVAILABLE SP UNAVAILA BLE [facility] [id number] SP [id number] [facility] [id number] SP [id number] [facility]-Medicaid [id number] ANSI-Not a Secondary Insurance [id number] Problems, Conditions, and Diagnoses Code Display Name Description Problem Type Effective Dates Data Source(s) Z68.32 [id number] Adult BMI 32.0-32.9 kg/sq m Problem 02/20/20 12:00:00 AM EDT eCW1 ([facility]) N93.9 [id number] Abnormal uterine bleeding Problem 10/26/2020 12:00:00 AM EDT eCW1 ([facility]) N97.0 [id number] Infertility associated with anovulation P roblem 10/26/2020 12:00:00 AM EDT eCW1 ([facility]) E78.1 [id number] Hypertriglyceridemia Problem 09/27/2020 12:0 0:00 AM EDT eCW1 ([facility]) E11.9 [id number] Type 2 diabetes kei itus without complication, without long-term current use of insulin Problem 09/27/2020 12:00:00 AM EDT eCW1 ([facility]) E55.9 [id number] Vitamin D deficiency Problem 09/27/2020 12:0 0:00 AM EDT eCW1 ([facility]) I11.9 Hypertensive heart disease without conge stive heart failure Hypertensive heart disease without heart failure Problem 08/23/2020 12:00:[address] eCW1 ([facility]) Surgeries/Procedures Procedure Description Date Indications Data Source(s) URINE TEST 12/09/2020 12:00:00 AM EDT eCW1 ([facility]) Results ID Date Data Source [id number] 05/30/2021 06:40:00 PM EST [facility] Name Value Range Interpretation Code Description Data Tressa rce(s) Supporting Document(s) SARS coronavirus 2 RNA [Presence] in Res piratory specimen by ROBERT with probe detection NEGATIVE [facility] This lab was ordered by [facility] a nd reported by [facility]. ID Date Data Source [id number] 05/30/2021 06:40:00 PM EST [facility] Name Value Range Interpretation Code Description Data Tressa rce(s) Supporting Document(s) SARS coronavirus 2 RNA [Presence] in Res piratory specimen by ROBERT with probe detection NEGATIVE [facility] This lab was ordered by [facility] a nd reported by [facility]. ID Date Data Source Basic Metabolic Profile (BMP) 01/26/2021 12:00:00 AM EDT eCW 1 ([facility]) Name Value Range Interpretation Code Description Data Tressa rce(s) Supporting Document(s) 83 70-100 GLUCOSE, FASTING eCW1 ([facility]) 16 7-18 BLOOD UREA NITROGEN eCW1 ([facility]) > 60.0 >60 GLOMERULAR FILTRATION RATE eCW 1 ([facility]) 138 136-145 SODIUM LEVEL eCW1 ([facility]) 0.54 0.55-1.30 CREATININE FOR GFR eCW1 ([facility]) 4.0 3.5-5.1 POTASSIUM SERUM eCW1 ([facility]) 105 98-107 CHLORIDE LEVEL eCW1 ([facility]) 28 21-32 CARBON DIOXIDE LEVEL eCW1 ([facility]) 8.6 8.5-10.1 CALCIUM LEVEL eCW1 ([facility]) ID Date Data Source [id number] 01/26/2021 12:00:00 AM EDT eCW1 ([facility]) Name Value Range Interpretation Code Description Data Tressa rce(s) Supporting Document(s) Hemoglobin A1c/Hemoglobin.total in Blood 5.4 HEMOGLOBIN A1c eCW1 ([facility]) ID Date Data Source [id number] 07/15/2020 12:00:00 AM EST [facility] Name Value Range Interpretation Code Description Data Tressa rce(s) Supporting Document(s) SARS coronavirus 2 RNA [Presence] in Res piratory specimen by ROBERT with probe detection NEGATIVE [facility] This lab was ordered by [facility] and reported by [facility]. ID Date Data Source [id number] 07/15/2020 12:00:00 AM EST [facility] Name Value Range Interpretation Code Description Data Tressa rce(s) Supporting Document(s) Carestart Rapid COVID Antigen Test Negative [facility] This lab was reported by [facility]. Procedure Social History Code Duration Value Status Description Data Source(s ) Smoking 06/05/2021 12:00:00 AM EST Never Smoker completed Never S moker eCW1 ([facility]) Smoking 01/24/2021 12:00:00 AM EDT Never Smoker completed Never S moker eCW1 ([facility]) Smoking 01/24/2021 12:00:00 AM EDT Never Smoker completed Never S moker eCW1 ([facility]) Smoking 01/24/2021 12:00:00 AM EDT Never Smoker completed Never S moker eCW1 ([facility]) Smoking 01/24/2021 12:00:00 AM EDT Never Smoker completed Never S moker eCW1 ([facility]) Smoking 01/24/2021 12:00:00 AM EDT Never Smoker completed Never S moker eCW1 ([facility]) Smoking 01/24/2021 12:00:00 AM EDT Never Smoker completed Never S moker eCW1 ([facility]) Smoking 12/09/2020 12:00:00 AM EDT Never Smoker completed Never S moker eCW1 ([facility]) Smoking 10/26/2020 12:00:00 AM EDT Never Smoker completed Never S moker eCW1 ([facility]) Smoking 10/26/2020 12:00:00 AM EDT Never Smoker completed Never S moker eCW1 ([facility]) Smoking 09/27/2020 12:00:00 AM EDT Never Smoker completed Never S moker eCW1 ([facility]) Smoking 09/27/2020 12:00:00 AM EDT Never Smoker completed Never S moker eCW1 ([facility]) Smoking 09/27/2020 12:00:00 AM EDT Never Smoker completed Never S moker eCW1 ([facility]) Smoking 08/23/2020 12:00:00 AM EST Never Smoker completed Never S moker eCW1 ([facility]) Smoking 08/23/2020 12:00:00 AM EST Never Smoker completed Never S moker eCW1 ([facility]) Vital Signs ID Date Data Source UNK Name Value Range Interpretation Code Description Data Source(s) Body weight 207.8 [lb_av] 207.8 [lb_av] eCW1 ([facility]) Body height 67 [in_i] 67 [in_i] eCW1 ([facility]) Body mass index (BMI) [Ratio] 32.54 kg/m2 32.54 kg/m2 eCW1 ([facility]) Heart rate 77 /min 77 /min eCW1 ([facility]) Respiratory rate 18 /min 18 /min eCW1 ([facility]) Body temperature 97.4 [degF] 97.4 [degF] eCW1 ( [facility]) Systolic blood pressure 128 mm[Hg] 128 mm[Hg] e CW1 ([facility]) Diastolic blood pressure 78 mm[Hg] 78 mm[Hg] eCW1 ([facility]) Body weight 207 [lb_av] 207 [lb_av] eCW1 ([facility]) Body weight 93.89 kg 93.89 kg eCW1 ([facility]) Body height 67 [in_i] 67 [in_i] eCW1 ([facility]) Body mass index (BMI) [Ratio] 32.42 kg/m2 32.42 kg/m2 eCW1 ([facility]) Systolic blood pressure 140 mm[Hg] 140 mm[Hg] e CW1 ([facility]) Diastolic blood pressure 80 mm[Hg] 80 mm[Hg] eCW1 ([facility]) Body weight 219 [lb_av] 219 [lb_av] eCW1 ([facility]) Body height 67 [in_i] 67 [in_i] eCW1 ([facility]) Body mass index (BMI) [Ratio] 34.3 kg/m2 34.3 k g/m2 eCW1 ([facility]) Systolic blood pressure 122 mm[Hg] 122 mm[Hg] e CW1 ([facility]) Diastolic blood pressure 74 mm[Hg] 74 mm[Hg] eCW1 ([facility]) Body weight 238.4 [lb_av] 238.4 [lb_av] eCW1 ([facility]) Body temperature 97.9 [degF] 97.9 [degF] eCW1 ( [facility]) Systolic blood pressure 140 mm[Hg] 140 mm[Hg] e CW1 ([facility]) Body height 67 [in_i] 67 [in_i] eCW1 ([facility]) Diastolic blood pressure 84 mm[Hg] 84 mm[Hg] eCW1 ([facility]) Body mass index (BMI) [Ratio] 37.33 kg/m2 37.33 kg/m2 eCW1 ([facility]) Heart rate 96 /min 96 /min eCW1 ([facility]) Respiratory rate 18 /min 18 /min eCW1 ([facility]) Body weight 249.0 [lb_av] 249.0 [lb_av] eCW1 ([facility]) Body height 67 [in_i] 67 [in_i] eCW1 ([facility]) Body mass index (BMI) [Ratio] 38.99 kg/m2 38.99 kg/m2 eCW1 ([facility]) Heart rate 111 /min 111 /min eCW1 ([facility]) Respiratory rate 18 /min 18 /min eCW1 ([facility]) Body temperature 97.0 [degF] 97.0 [degF] eCW1 ( [facility]) Systolic blood pressure 160 mm[Hg] 160 mm[Hg] e CW1 ([facility]) Diastolic blood pressure 72 mm[Hg] 72 mm[Hg] eCW1 ([facility]) Patient Treatment Plan of Care Planned Activity Planned Date Details Description Data Source (s) Ozempic (0.25 or 0.5 MG/DOSE) 2 MG/1.5ML 01/24/2021 12:00:00 AM EDT eCW1 ([facility]) Ozempic (0.25 or 0.5 MG/DOSE) 2 MG/1.5ML 01/24/2021 12:00:00 AM EDT eCW1 ([facility]) Ozempic (0.25 or 0.5 MG/DOSE) 2 MG/1.5ML 01/24/2021 12:00:00 AM EDT eCW1 ([facility]) Ozempic (0.25 or 0.5 MG/DOSE) 2 MG/1.5ML 01/24/2021 12:00:00 AM EDT eCW1 ([facility]) Ozempic (0.25 or 0.5 MG/DOSE) 2 MG/1.5ML 01/24/2021 12:00:00 AM EDT eCW1 ([facility]) Ozempic (0.25 or 0.5 MG/DOSE) 2 MG/1.5ML 01/24/2021 12:00:00 AM EDT eCW1 ([facility]) medroxyprogesterone acetate 10 MG Oral Tablet [Provera ] 10/26/2020 12:00:00 AM EDT [facility]CW[facility] medroxyprogesterone acetate 10 MG Oral Tablet [Provera ] 10/26/2020 12:00:00 AM EDT eCW1 ([facility]) pioglitazone 15 MG Oral Tablet 10/07/2020 12:00:00 AM EDT eCW1 ([facility]) pioglitazone 15 MG Oral Tablet 10/07/2020 12:00:00 AM EDT eCW1 ([facility]) sitagliptin 25 MG Oral Tablet [Januvia] 10/04/2020 12:00:00 AM EDT eCW1 ([facility]) sitagliptin 25 MG Oral Tablet [Januvia] 10/04/2020 12:00:00 AM EDT eCW1 ([facility]) sitagliptin 25 MG Oral Tablet [Januvia] 10/04/2020 12:00:00 AM EDT eCW1 ([facility]) Test Strips - 09/27/2020 12:00:00 AM EDT eCW1 ([facility]) Lancets - 09/27/2020 12:00:00 AM EDT e CW1 ([facility]) Glucometer 09/27/2020 12:00:00 AM EDT e CW1 ([facility]) Ergocalciferol [id number] UNT Oral Capsule 09/27/2020 12:00:00 AM EDT eCW1 ([facility]) Test Strips - 09/27/2020 12:00:00 AM EDT eCW1 ([facility]) Lancets - 09/27/2020 12:00:00 AM EDT e CW1 ([facility]) Glucometer 09/27/2020 12:00:00 AM EDT e CW1 ([facility]) Ergocalciferol 22113 UNT Oral Capsule 09/27/2020 12:00:00 AM EDT eCW1 ([facility]) Test Strips - 09/27/2020 12:00:00 AM EDT eCW1 ([facility]) Lancets - 09/27/2020 12:00:00 AM EDT e CW1 ([facility]) Glucometer 09/27/2020 12:00:00 AM EDT e CW1 ([facility]) Ergocalciferol 16710 UNT Oral Capsule 09/27/2020 12:00:00 AM EDT eCW1 ([facility]) Losartan Potassium 50 MG Oral Tablet 08/23/2020 12:00:00 AM EST eCW1 ([facility]) Sertraline 100 MG Oral Tablet [Zoloft] 08/23/2020 12:00:00 AM EST eCW1 ([facility]) Losartan Potassium 50 MG Oral Tablet 08/23/2020 12:00:00 AM EST eCW1 ([facility]) Sertraline 100 MG Oral Tablet [Zoloft] 08/23/2020 12:00:00 AM EST eCW1 ([facility]) Sertraline 100 MG Oral Tablet [Zoloft] 08/23/2020 12:00:00 AM EST eCW1 ([facility]) Losartan Potassium 50 MG Oral Tablet 08/23/2020 12:00:00 AM EST eCW1 ([facility]) Sertraline 100 MG Oral Tablet [Zoloft] 08/23/2020 12:00:00 AM EST eCW1 ([facility]) Sertraline 100 MG Oral Tablet [Zoloft] 08/23/2020 12:00:00 AM EST eCW1 ([facility]) Losartan Potassium 50 MG Oral Tablet 08/23/2020 12:00:00 AM EST eCW1 ([facility]) Sertraline 50 MG Oral Tablet [Zoloft] 08/23/2020 12:00:00 AM EST eCW1 ([facility]) olopatadine 2 MG/ML Ophthalmic Solution 08/23/2020 12:00:00 AM EST eCW1 ([facility]) Losartan Potassium 50 MG Oral Tablet 08/23/2020 12:00:00 AM EST eCW1 ([facility]) Sertraline 50 MG Oral Tablet [Zoloft] 08/23/2020 12:00:00 AM EST eCW1 ([facility]) olopatadine 2 MG/ML Ophthalmic Solution 08/23/2020 12:00:00 AM EST eCW1 ([facility]) Losartan Potassium 50 MG Oral Tablet 08/23/2020 12:00:00 AM EST eCW1 ([facility]) Sertraline 50 MG Oral Tablet [Zoloft] 08/23/2020 12:00:00 AM EST eCW1 ([facility]) Sertraline 100 MG Oral Tablet [Zoloft] 08/23/2020 12:00:00 AM EST eCW1 ([facility])
[2021-06-06 20:47] LABS: BASO % 0.5 % (0.0-1.0); EOS # 0.1 10^3/uL (0.0-0.5); EOS % 1.6 % (0.0-3.0); HEMATOCRIT 30.8 % (36.0-47.0); HEMOGLOBIN 9.2 g/dl (12.0-15.5); LYMPH # 1.5 10^3/uL (1.5-5.0); LYMPH % 33.5 % (24.0-44.0); MEAN CORPUSCULAR HGB CONC 29.9 g/dl (32.0-36.5); MEAN CORPUSCULAR VOLUME 73.5 fl (80.0-96.0); MONO # 0.5 10^3/uL (0.0-0.8); MONO % 11.3 % (2.0-8.0); NEUTROPHILS # 2.3 10^3/uL (1.5-8.5); PLATELET COUNT, AUTOMATED 168 10^3/uL (150-450); RED BLOOD COUNT 4.19 10^6/uL (4.00-5.40); WHITE BLOOD COUNT 4.4 10^3/uL (4.0-10.0)
[2021-06-06 21:01] LABS: INR 1.03; PROTHROMBIN TIME 13.9 SECONDS (12.7-14.5)
[2021-06-06 21:02] LABS: PARTIAL THROMBOPLASTIN TIME 36.9 SECONDS (25.9-37.0)
[2021-06-06 21:12] LABS: ALBUMIN 3.8 GM/DL (3.2-5.2); ALT/SGPT 24 U/L (12-78); BILIRUBIN,DIRECT < 0.1 MG/DL (0.0-0.2); BILIRUBIN,TOTAL 0.2 MG/DL (0.2-1.0); LIPASE 130 U/L (73-393); TOTAL PROTEIN 8.2 GM/DL (6.4-8.2)
[2021-06-06 21:23] LABS: RSV AMPLIFICATION NEGATIVE (NEGATIVE)
[2021-06-06] MEDS ORDERED: ISOVUE-370 76% 100ML VIAL As Ordered ONE (21:25)
--- NOTE | 2021-06-06 22:47 | REPVR ---
PROCEDURE INFORMATION: Exam: CT Abdomen And Pelvis With Contrast Exam date and time: 06/06/2021 9:58 PM Age: 35 years old Clinical indication: Abdominal pain; Localized; Upper; Additional info: Gi bleed, abd tenderness TECHNIQUE: Imaging protocol: Computed tomography of the abdomen and pelvis with contrast. Axial, coronal and sagittal reformatted images were created and reviewed. Radiation optimization: All CT scans at this facility use at least one of these dose optimization techniques: automated exposure control; mA and/or kV adjustment per patient size (includes targeted exams where dose is matched to clinical indication); or iterative reconstruction. Contrast material: ISOVUE 370; Contrast volume: 100 ml; Contrast route: INTRAVENOUS (IV); COMPARISON: CT ABD/PEL W/IV CONTRAST ONLY 05/30/2021 7:28 PM FINDINGS: Diaphragm: Small hiatal hernia. Liver: Mild hepatomegaly. Gallbladder and bile ducts: No radiodense gallstones. No biliary ductal dilatation. Pancreas: Unremarkable. Spleen: Moderate splenomegaly. Adrenal glands: Normal. No mass. Kidneys and ureters: No mass. No radiodense calculi. No hydronephrosis. Stomach and bowel: No bowel wall thickening. No obstruction. No pneumatosis. Appendix: Normal. Intraperitoneal space: Trace nonspecific free pelvic fluid, likely physiologic. No organized fluid collection. No free air. Vasculature: Unremarkable. No aneurysm. Lymph nodes: No pathologically enlarged lymph nodes. Urinary bladder: Unremarkable as visualized. Reproductive: Cervical nabothian cyst. Bones/joints: No acute osseous abnormality. Mild degenerative changes. Soft tissues: Tiny, fat containing umbilical hernia. IMPRESSION: 1. Hepatosplenomegaly. 2. Additional findings, as above. Electronically signed by: Sudheer Francis On 06/06/2021 22:46:25 PM
[2021-06-06] MEDS ORDERED: ONDA4TAB6 PO (22:59)
[2021-06-06 23:15] VITALS: BP 136/84
--- NOTE | 2021-06-09 14:03 | ED PDOC ---
Post-Departure Follow-Up certifieid letter sent to pt re formal read of ct abd/p. needs fu. [facility]ian pcp an d fax. if no pcp refer to [facility] and fax Cailin Fernandez MD Jun 09, 2021 14:03
== END 2021-06-06 23:17 | disposition home or self-care (01) ==
LOC: M ED 11:18
DX: U07.1 COVID-19 (principal); K64.9 Unspecified hemorrhoids; I10 Essential (primary) hypertension; K21.9 Gastro-esophageal reflux disease without esophagitis; D50.9 Iron deficiency anemia, unspecified; Z79.899 Other long term (current) drug therapy
CPT/HCPCS: 74177; 80047; 80076; 81001; 83690; 84702; 85025; 85610; 85730; 87631; 96360; 96361; 99284; Q9967

== ENCOUNTER → 2021-08-21 | Outpatient (CLI) | payer OTHER ==
[~2021-08-21] MED LIST changes: +LOSA50TA28; +LOSA50TA28 PO; -LOSA50TA88; -LOSA50TA88 PO; +ONDA4TAB6 PO
[2021-08-21 15:22] LABS: HEMOGLOBIN 11.6 g/dl (12.0-15.5); MEAN CORPUSCULAR HEMOGLOBIN 24.6 pg (27.0-33.0); MEAN CORPUSCULAR HGB CONC 31.4 g/dl (32.0-36.5); MEAN CORPUSCULAR VOLUME 78.4 fl (80.0-96.0); PLATELET COUNT, AUTOMATED 248 10^3/uL (150-450); RED BLOOD COUNT 4.72 10^6/uL (4.00-5.40); WHITE BLOOD COUNT 5.6 10^3/uL (4.0-10.0)
[2021-08-21 15:55] LABS: ALBUMIN 3.8 GM/DL (3.2-5.2); ALT/SGPT 18 U/L (12-78); AMYLASE 44 U/L (25-115); BILIRUBIN,TOTAL 0.7 MG/DL (0.2-1.0); BLOOD UREA NITROGEN 14 MG/DL (7-18); CALCIUM LEVEL 8.8 MG/DL (8.5-10.1); CARBON DIOXIDE LEVEL 24 MEQ/L (21-32); CHLORIDE LEVEL 104 MEQ/L (98-107); CREATININE FOR GFR 0.65 MG/DL (0.55-1.30); GLOMERULAR FILTRATION RATE > 60.0 (>60); GLUCOSE, FASTING 100 MG/DL (70-100); LIPASE 107 U/L (73-393); POTASSIUM SERUM 3.6 MEQ/L (3.5-5.1); SODIUM LEVEL 134 MEQ/L (136-145); TOTAL PROTEIN 7.9 GM/DL (6.4-8.2)
[2021-08-21 16:11] LABS: HEPATITIS B SURFACE ANTIGEN NEGATIVE (NEGATIVE)
[2021-08-21 16:38] LABS: HEPATITIS B CORE ANTIBODY IGM NEGATIVE (NEGATIVE); HEPATITIS C VIRUS ABY INDEX 0.2 INDEX (<0.8)
== END ==
LOC: M PLALAB 12:59
PROVIDERS: ATTEND Nurse Practitioner Adult Health
DX: R19.4 Change in bowel habit (principal); R19.7 Diarrhea, unspecified; R10.84 Generalized abdominal pain; L74.9 Eccrine sweat disorder, unspecified

== ENCOUNTER → 2021-08-21 | Outpatient (REF) | payer OTHER | LOC: M SFHCPLAZ 16:36 | PROVIDERS: ATTEND Nurse Practitioner Adult Health | DX: R19.7 Diarrhea, unspecified (principal) ==